=== PATIENT | male | born 1985 | race Caucasian/White ===

== ENCOUNTER 2021-01-29 00:45 | Emergency (ER) | payer SELFPAY ==
[2021-01-29] MEDS ORDERED: NA CHLORIDE 0.9% 1,000 ML ONE (01:19)
[2021-01-29] MEDS ORDERED: METHYLPREDNISOLONE 125 MG INJ ONE (01:19)
[2021-01-29] MEDS ORDERED: AZITHROMYCIN 500 MG INJ IVPB ONE (01:24)
[2021-01-29] MEDS ORDERED: NA CHLORIDE 0.9% 250 ML ONE (01:24)
[2021-01-29 01:33] LABS: Absolute Lymphocytes (CBC) 0.8 K/uL (0.7-4.9); Lymphocytes % 6.4 % (15.3-44.8); RBC Red Blood Cell Count 4.89 M/uL (4.33-5.43)
[2021-01-29 01:35] LABS: Protime INR 1.05
[2021-01-29 02:22] LABS: ALT/SGPT 95 U/L (12-78); AST/SGOT 90 U/L (15-37); Albumin 2.7 g/dL (3.4-5.0); Alkaline Phosphatase 118 U/L (45-117); BUN Blood Urea Nitrogen 20 mg/dL (7-18); Bicarbonate 24 mmol/L (21-32); Bilirubin Direct 1.2 mg/dL (0-0.2); Bilirubin Total 1.6 mg/dL (0.2-1.0); Ferritin 2621.5 ng/mL (26-388); Glucose Level 90 mg/dL (74-106); Lipase 189 U/L (73-393); Potassium 3.7 mmol/L (3.5-5.1); Protein, Total 6.7 g/dL (6.4-8.2); Sodium Level 140 mmol/L (136-145); Troponin (Emerg Dept Use Only) < 0.02 ng/mL (0.0-0.045)
--- NOTE | 2021-01-29 02:33 | EDPHYS ---
Physician Documentation [facility] Name: Erich Colbert Age: 35 yrs Sex: Male : 1985 Arrival Date: 01/29/2021 Time: 00:46 Bed 16 Private MD: ED Physician Sarah Beth HPI: 01/29 01:37 This 35 yrs old Male presents to ER via EMS with complaints of Shortness Of ma2 Breath. 01:37 Onset: The symptoms/episode began/occurred gradually, 3 day(s) ago. Associated signs ma2 and symptoms: Pertinent positives: productive cough, Pertinent negatives: diaphoresis, dizziness, hemoptysis, nausea. Severity of symptoms: At their worst the symptoms were mild moderate in the emergency department the symptoms are unchanged. The patient has not experienced similar symptoms in the past. Tested positive for Covid 3 days ago. Historical: - Allergies: 00:50 No Known Allergies; em - PMHx: 00:50 None; em - PSHx: 00:50 None; em - Immunization history:: Adult Immunizations not immunized. - Social history:: Smoking status: Patient denies any tobacco usage or history of. - Family history:: not pertinent. ROS: 01:37 Constitutional: Negative for fever, chills, and weight loss, Eyes: Negative for injury, ma2 pain, redness, and discharge, ENT: Negative for injury, pain, and discharge, Neck: Negative for injury, pain, and swelling, Cardiovascular: Negative for chest pain, palpitations, and edema, Respiratory: Negative for shortness of breath, cough, wheezing, and pleuritic chest pain, Abdomen/GI: Negative for abdominal pain, nausea, diarrhea, and constipation, : Negative for injury, bleeding, discharge, and swelling, MS/Extremity: Negative for injury and deformity, Skin: Negative for injury, rash, and discoloration, Neuro: Negative for headache, weakness, numbness, tingling, and seizure. Exam: 01:37 Constitutional: This is a well developed, well nourished patient who is awake, alert, ma2 and in no acute distress. Head/Face: Normocephalic, atraumatic. Eyes: Pupils equal round and reactive to light, extra-ocular motions intact. Lids and lashes normal. Conjunctiva and sclera are non-icteric and not injected. Cornea within normal limits. Periorbital areas with no swelling, redness, or edema. ENT: Nares patent. No nasal discharge, no septal abnormalities noted. Tympanic membranes are normal and external auditory canals are clear. Oropharynx with no redness, swelling, or masses, exudates, or evidence of obstruction, uvula midline. Mucous membranes moist. Neck: Trachea midline, no thyromegaly or masses palpated, and no cervical lymphadenopathy. Supple, full range of motion without nuchal rigidity, or vertebral point tenderness. No Meningismus. Chest/axilla: Normal chest wall appearance and motion. Nontender with no deformity. No lesions are appreciated. Cardiovascular: Regular rate and rhythm with a normal S1 and S2. No gallops, murmurs, or rubs. Normal PMI, no JVD. No pulse deficits. Respiratory: Patient is on high flow nasal cannula 15 L, saturation is 93%, lungs have equal breath sounds bilaterally, there is bilateral bronchial breathing on auscultation, no rales, or wheezes noted. no retractions or nasal flaring. Abdomen/GI: Soft, non-tender, with normal bowel sounds. No distension or tympany. No guarding or rebound. No evidence of tenderness throughout. Skin: Warm, dry with normal turgor. Normal color with no rashes, no lesions, and no evidence of cellulitis. MS/ Extremity: Pulses equal, no cyanosis. Neurovascular intact. Full, normal range of motion. Neuro: Awake and alert, GCS 15, oriented to person, place, time, and situation. Cranial nerves II-XII grossly intact. Motor strength 5/5 in all extremities. Sensory grossly intact. Cerebellar exam normal. Normal gait. Vital Signs: 00:47 BP 109 / 72; Pulse 94; Resp 40; Temp 97.2; Pulse Ox 95% on Non-rebreather mask; Weight em 83.91 kg; Height 5 ft. 7 in. (170.18 cm); Pain 6/10; 01:24 BP 115 / 67; Pulse 95; Resp 37; Pulse Ox 91% on 15 lpm NC; ad5 02:00 BP 97 / 71; Pulse 96; Resp 34; Pulse Ox 94% 15 lpm ; ad5 02:30 BP 104 / 70; Pulse 92; Resp 30; Pulse Ox 93% 15 lpm ; ad5 03:30 BP 112 / 72; Pulse 89; Resp 30 S; Pulse Ox 93% ; ad5 00:47 Body Mass Index 28.97 (83.91 kg, 170.18 cm) em 01:24 high flow O2 ad5 MDM: 00:49 Patient medically screened. dc2 01:37 Differential diagnosis: Covid pneumonia, versus bacterial pneumonia, presents reactive ma2 airway disease, PE unlikely, CHF unlikely. Antibiotic administration: Data reviewed: vital signs, nurses notes. 02:31 Counseling: I had a detailed discussion with the patient and/or guardian regarding: the [facility] historical points, exam findings, and any diagnostic results supporting the discharge/admit diagnosis, the presence of at least one elevated blood pressure reading (>120/80) during this emergency department visit, the need to transfer to another facility, we donthave covid beds in our er. will initiate transfer for higher level of care . 03:43 ED course: accepted by dr. Solis. [facility] 01/29 00:49 Order name: BMP [facility] 01/29 00:49 Order name: Blood Culture Adult (2) [facility] 01/29 00:49 Order name: C-Reactive Protein [facility] 01/29 00:49 Order name: CBC with Diff 01/29 00:49 Order name: Ferritin [facility] 01/29 00:49 Order name: Flu [facility] 01/29 00:49 Order name: LFT's dc01/29 00:49 Order name: Lactate; Complete Time: 02:27 [facility] 01/29 00:49 Order name: Lipase; Complete Time: 02:27 [facility] 01/29 00:49 Order name: PT-INR; Complete Time: 02:27 [facility] 01/29 00:49 Order name: Procalcitonin; Complete Time: 02:27 [facility] 01/29 00:50 Order name: Ptt, Activated; Complete Time: 02:27 [facility] 01/29 00:50 Order name: Troponin (emerg Dept Use Only); Complete Time: 02:27 dc01/29 00:50 Order name: CXR XRAY 01/29 00:50 Order name: EKG; Complete Time: 00:50 dc01/29 00:50 Order name: Basic Metabolic Panel; Complete Time: 02:27 [facility] 01/29 00:50 Order name: Blood Culture 01/29 00:50 Order name: C-Reactive Protein; Complete Time: 02:27 [facility] 01/29 00:50 Order name: CBC with Automated Diff; Complete Time: 02:58 [facility] 01/29 00:50 Order name: Ferritin; Complete Time: 02:27 [facility] 01/29 00:50 Order name: Liver (Hepatic) Function; Complete Time: 02:27 [facility] 01/29 01:37 Order name: Manual Differential; Complete Time: 02:59 [facility] 01/29 03:00 Order name: ABG; Complete Time: 03:37 dc01/29 00:50 Order name: Cardiac monitoring; Complete Time: 01:06 dc01/29 00:50 Order name: Droplet/Contact Precautions; Complete Time: 01:06 dc01/29 00:50 Order name: EKG - Nurse/Tech; Complete Time: 01:26 dc01/29 00:50 Order name: IV Start; Complete Time: 01:06 dc01/29 00:50 Order name: Labs collected and sent; Complete Time: 01: dc01/29 00:50 Order name: O2 Per Protocol; Complete Time: 01:07 dc01/29 00:50 Order name: O2 Sat Monitoring; Complete Time: 01:07 dc Administered Medications: 01:00 Drug: NS 0.9% 1000 ml Route: IV; Rate: 1 bolus; Site: right antecubital; em 05:18 Follow up: IV Status: Completed infusion; IV Intake: 500ml ad5 01:00 Drug: SOLU-Medrol (methylPrednisoLONE) 125 mg Route: IVP; Site: right antecubital; em 02:10 Follow up: Response: No adverse reaction ad5 01:24 Drug: AZITHromycin 500 mg Route: IVPB; Infused Over: 1 hrs; Site: right antecubital; ad5 03:28 Follow up: Response: No adverse reaction; IV Status: Completed infusion ad5 02:10 Drug: Lovenox (enoxaparin) 80 mg Route: Sub-Q; Site: right lower abdomen; ad5 03:28 Follow up: Response: No adverse reaction ad5 Disposition Summary: 01/29/21 02:32 Transfer Ordered Transfer Location: Other Acute Care Facility ma2 Reason: Higher level of care ma2 Condition: Stable ma2 Problem: new ma2 Symptoms: are unchanged ma2 Accepting Physician: martinez(01/29/21 05:17) ad5 Diagnosis - Viral pneumonia, unspecified - COVID 19 ma2 Forms: - Medication Reconciliation Form ma2 - SBAR form ma2 Signatures: Dispatcher [employer] Jose Martinez RN Sarah Darden MD MD ma2 Erasmo Patel ad5 Corrections: (The following items were deleted from the chart) 05:17 02:32 [facility] ma2 ad5
--- NOTE | 2021-01-29 02:33 | ER ---
Nurse's Notes [facility] Name: Erich Colbert Age: 35 yrs Sex: Male : 1985 Arrival Date: 01/29/2021 Time: 00:46 Bed 16 Private MD: Diagnosis: Viral pneumonia, unspecified-COVID 19 Presentation: 01/29 00:47 Chief complaint: EMS states: called out for shortness of breath, tested covid positive em 3 days ago but has had symptoms for 12 days, has been getting worse, on scene he was 68% RA, placed on NRB and went up to 97%, was not given any medications, was not able to speak in full sentences prior to being placed on the NRB. Coronavirus screen: shortness of breath, Client presents with at least one sign or symptom that may indicate coronavirus-19. Standard/surgical mask placed on the client. Provider contacted for isolation considerations. Ebola Screen: Patient negative for fever greater than or equal to 101.5 degrees Fahrenheit, and additional compatible Ebola Virus Disease symptoms Patient denies exposure to infectious person. Patient denies travel to an Ebola-affected area in the 21 days before illness onset. No symptoms or risks identified at this time. Initial Sepsis Screen: Does the patient meet any 2 criteria? RR > 20 per min. HR > 90 bpm. Yes Does the patient have a suspected source of infection? Yes: Productive cough/pneumonia If YES to both, name of provider notified: Sarah Beth MD. Risk Assessment: Do you want to hurt yourself or someone else? Patient reports no desire to harm self or others. Onset of symptoms was January 29, 2021. 00:47 Method Of Arrival: EMS: [facility] em 00:47 Acuity: KASSANDRA 3 em Historical: - Allergies: 00:50 No Known Allergies; em - PMHx: 00:50 None; em - PSHx: 00:50 None; em - Immunization history:: Adult Immunizations not immunized. - Social history:: Smoking status: Patient denies any tobacco usage or history of. - Family history:: not pertinent. Screenin:51 Abuse screen: Denies threats or abuse. Nutritional screening: No deficits noted. em Tuberculosis screening: No symptoms or risk factors identified. Fall Risk None identified. Assessment: 00:51 General: Appears in no apparent distress. uncomfortable, well groomed, well developed, em well nourished, Behavior is calm, cooperative, appropriate for age. Pain: Complains of pain in chest Pain currently is 6 out of 10 on a pain scale. Neuro: Level of Consciousness is awake, alert, obeys commands, Oriented to person, place, time, situation. Cardiovascular: Capillary refill < 3 seconds Patient's skin is warm and dry. Rhythm is sinus rhythm. Respiratory: Airway is patent Respiratory effort is labored, Respiratory pattern is tachypnea Onset: The symptoms/episode began/occurred 12 days ago. Derm: Skin is intact, Skin is clammy, Skin is pink, Skin temperature is warm. Musculoskeletal: Capillary refill < 3 seconds, Range of motion: intact in all extremities. 01:26 Reassessment: RT at bedside, pt from NRB to high flow NC, tolerating well. ad5 02:30 Reassessment: Patient and/or family updated on plan of care and expected duration. Pain ad5 level reassessed. Patient states feeling better. 03:30 Reassessment: Patient and/or family updated on plan of care and expected duration. Pain ad5 level reassessed. Pt reports no change in s/s at this time. VS remain stable. Pt remains on high flow NC, adjusted by RT to 25L at this time. Will continue to monitor. 05:15 Reassessment: Pt report to LINDSAY Richmond at [facility]. Questions/concerns ad5 addressed. EMS notified of need for pt transport. 05:17 Reassessment: EMS at bedside for pt transport, transfer center and receiving facility ad5 notified of pt ETA. Vital Signs: 00:47 BP 109 / 72; Pulse 94; Resp 40; Temp 97.2; Pulse Ox 95% on Non-rebreather mask; Weight em 83.91 kg; Height 5 ft. 7 in. (170.18 cm); Pain 6/10; 01:24 BP 115 / 67; Pulse 95; Resp 37; Pulse Ox 91% on 15 lpm NC; ad5 02:00 BP 97 / 71; Pulse 96; Resp 34; Pulse Ox 94% 15 lpm ; ad5 02:30 BP 104 / 70; Pulse 92; Resp 30; Pulse Ox 93% 15 lpm ; ad5 03:30 BP 112 / 72; Pulse 89; Resp 30 S; Pulse Ox 93% ; ad5 00:47 Body Mass Index 28.97 (83.91 kg, 170.18 cm) em 01:24 high flow O2 ad5 ED Course: 00:46 Patient arrived in ED. em 00:49 Sarah Beth MD is Attending Physician. ma2 00:50 Triage completed. em 00:50 Arm band placed on. em 00:51 Patient has correct armband on for positive identification. Bed in low position. Call em light in reach. Side rails up X2. Adult w/ patient. surveillance system monitor on. Pulse ox on. NIBP on. 00:56 Erasmo Patel is Primary Nurse. ad5 01:07 Inserted saline lock: 20 gauge in right antecubital area, using aseptic technique. ds4 Blood collected. 01:17 CXR XRAY In Process Unspecified. EDMS 02:32 initiated a transfer with Ev from [facility]. mw2 02:35 [facility], [facility], [facility] are all at capacity. [facility] Ev from [facility] is checking capacity at [facility]. 02:[address] Beth with Dr. Starkey from [facility]. mw2 03:[address] Beth with the Dr. Starkey from [facility]. mw2 03:58 administrative approval given by Ev Dale/ patient has been accepted to [address] bed I202/Dr. Starkey accepted the patient in transfer/ report to be called to [phone]. 05:14 No provider procedures requiring assistance completed. Patient transferred, IV remains ad5 in place. Administered Medications: 01:00 Drug: NS 0.9% 1000 ml Route: IV; Rate: 1 bolus; Site: right antecubital; em 05:18 Follow up: IV Status: Completed infusion; IV Intake: 500ml ad5 01:00 Drug: SOLU-Medrol (methylPrednisoLONE) 125 mg Route: IVP; Site: right antecubital; em 02:10 Follow up: Response: No adverse reaction ad5 01:24 Drug: AZITHromycin 500 mg Route: IVPB; Infused Over: 1 hrs; Site: right antecubital; ad5 03:28 Follow up: Response: No adverse reaction; IV Status: Completed infusion ad5 02:10 Drug: Lovenox (enoxaparin) 80 mg Route: Sub-Q; Site: right lower abdomen; ad5 03:28 Follow up: Response: No adverse reaction ad5 Intake: 05:18 IV: 500ml; Total: 500ml. ad5 Outcome: 02:32 ER care complete, transfer ordered by MD. sahu 05:15 Transferred by ground EMS to [facility], [facility], Transfer form completed. ad5 05:15 Transferred 05:15 Condition: stable 05:15 Condition: stable 05:15 Instructed on the need for transfer, Demonstrated understanding of instructions. 05:17 Patient left the ED. ad5 Signatures: Dispatcher [employer] Jose Martinez RN RN Elijah Zamudio ds4 Sarah Beth MD MD in2 Ilan Palomares mw2 Erasmo Patel ad5 Corrections: (The following items were deleted from the chart) 04:03 02:[address] Beth with Dr. Issa from [place] [id number] 04:03 03:[address] Beth with the Hospitalist from [place] [id number]
[2021-01-29] MEDS ORDERED: ENOXAPARIN 80 MG/0.8 ML SQ ONE (02:38)
[2021-01-29 02:42] LABS: Blood Morphology Comment NOT SEEN (NOT SEEN); Platelet Estimate ADEQ
[2021-01-29 03:18] LABS: Arterial Blood Carboxyhemoglob 1.2 % (0-1.5); Blood Gas Oxyhemoglobin 85.8 % (94-97); Blood O2 Saturation 87.6 % (92-98.5)
[2021-01-29] MEDS ORDERED: ONDANSETRON 4 MG/2 ML VIAL ONE (04:44)
[2021-01-29] MEDS ORDERED: MORPHINE 4 MG/ML SYR ONE (04:44)
--- NOTE | 2021-01-29 08:30 | RAD REPORT ---
EXAM DESCRIPTION: RAD - Chest Single View - 01/29/2021 1:17 am CLINICAL HISTORY: CONGESTION Chest pain. COMPARISON: No comparisons FINDINGS: Portable technique limits examination quality. Extensive bilateral alveolar pulmonary opacities are present probably representing pulmonary infectio n or less likely pulmonary edema. The heart is normal in size. No displaced fractures.
[2021-01-30 06:38] VITALS: TEMP 97.2
[2021-01-30 06:44] VITALS: O2SAT 93
[2021-01-30 06:45] VITALS: BP 112/72
--- NOTE | 2021-01-30 07:32 | EKG ---
Test Date: 2021-01-29 Test Time: 01:12:49 Water Resource Consultant: MARICARMEN MEASUREMENT RESULTS: Intervals: Rate: 92 TN: 150 QRSD: 90 QT: 370 QTc: 457 Morgan: P: 44 TN: 150 QRS: 47 T: 2 INTERPRETIVE STATEMENTS: Normal sinus rhythm Nonspecific T wave abnormality Abnormal ECG No previous ECG available for comparison Electronically Signed On 01-30-21 07:28:44 CDT by Danielito Agarwal
== END 2021-01-29 05:17 ==
LOC: ER 00:45
DX: U07.1 COVID-19 (principal); J12.82 Pneumonia due to coronavirus disease 2019
CPT/HCPCS: 36415; 71045; 80048; 80076; 82728; 82805; 83605; 83690; 84145; 84484; 85025; 85610; 85730; 86140; 87040; 93005; 94002; 96361; 96365; 96366; 96372; 96375; 99285; J0456; J2405; J2930; J7030; J7050

== ENCOUNTER 2022-06-08 17:10 | Emergency (ER) | payer OTHER ==
--- OUTSIDE RECORDS SUMMARY | 2022-06-08 17:18 | XMS REPORT | Continuity of Care Document ---
:1985 Author Organization [facility] t Address [address] [place] [address] Care Team Providers Name Role Phone PCP, PATIENT DOES NOT HAVE A Primary Care Physician Unavaila EDI Walker Attending Clinician Unavailable Akash MONTOYA, Kathe Attending Clinician Unavailable MOLINA MILLS Attending Clinician Unavailable Molina Davison Attending Clinician Doctor Unassigned, [place] Attending Clinician Unavailable LIZY COWART Attending Clinician Unavailable Supa JOSE, Lizy Attending Clinician Edi Starkey MD Attending Clinician Han Reed MD Attending Clinician Shahbaz Bauer MD Attending Clinician EDI STARKEY Admitting Clinician Unavailable Payers Payer Name Policy Type Policy Number Effective Date Expiration Date S ource Problems Condition Condition Condition Status Onset Resolution Last Treating Co mments Source Name Details Category Date Date Treatment Clinician Date Acute Acute Disease Active [facility] Pat[facility] y failure y failure 00:00: Medi adama due to due to 00 Center COVID-19 COVID-19 Acute Acute Disease Active [facility] respir[facility]-28 Pati kes y failure y failure 00:00: Medi adama due to due to 00 Center COVID-19 COVID-19 No known No known Disease Unive rs active active ity of problems problems [facility] Allergies, Adverse Reactions, Alerts Allergy Allergy Status Severity Reaction(s) Onset Inactive Treating Comm ents Source Name Type Date Date Clinician NO KNOWN Drug Active Univers ALLERGIE Class ity of S [facility] NO KNOWN Allergy Active [facility] Family History Family Member Diagnosis Comments Start Date Stop Date Source Natural mother Diabetes [facility] Social History Social Habit Start Date Stop Date Quantity Comments Source History SDOH [facility] Drinks History SDOH [facility] Alcohol Binge Medical Jona [facility] History SDOH [facility] Alcohol Comment Medical C enter Exposure to 2022-02-23 2022-03-05 [facility]00 [facility] (event) [place] Tobacco use and 2021-01-29 2021-01-[address] [facility] exposure 00:00:00 00:00:00 [facility] Alcohol intake 2021-01-29 2021-01-29 Ex-drinker [facility] 00:00:00 00:00:00 (finding) Medical Center History SDOH 2021-01-29 2021-01-[address] [facility] Alcohol Frequency 00:00:00 00:00:00 [facility] Sex Assigned At [address] 00:00:00 00:00:00 [facility] Smoking Status Start Date Stop Date Source Never smoked tobacco [facility] Medications Ordered Filled Start Stop Current Ordering Indication Dosage Frequency Signature Comments Components Source Medication Medication Date Date Medication? Clinician (SIG) Name Name aki 2021- No [id number] 40mg [facility] 07-12 [id number] ity of acetonide 18:15: 17:13 [place] (KENALOG) 00 :00 Medical injection Branch 40 mg triamcinolo 2021- No [id number] 40mg 40 mg, [facility] 07-12 [id number] Intramuscu ity of acetonide 18:15: 17:13 [place] ([place] 00 :00 1 dose, On Medi adama injection 07/12/21 Bran ch 40 mg at 1215, Routine lamoTRIgine Yes 200mg Take 200 U nivers 200 mg 1-08 mg by ity of tablet 11:03: mouth. [address] Branch lamoTRIgine 2-0 Yes 200mg Take 200 U nivers 200 mg 1-08 mg by ity of tablet 11:03: mouth. [address] lamoTRIgine 2021-0 Yes 200mg Take 200 U nivers 200 mg 1-08 mg by ity of tablet 11:03: mouth. [address] lamoTRIgine 2021-0 Yes 200mg Take 200 U nivers 200 mg 1-08 mg by ity of tablet 11:03: mouth. [address] predniSONE 2021-0 2022- No [id number] Take 4 Univers 10 mg 07-12 [id number] tablets by ity o f tablet 00:00: 05:59 mouth [place] 00 :00 daily for Medical 5 days, Branch THEN 2 tablets daily for 5 days, THEN 1 tablet daily for 5 days. lamoTRIgine 2020-0 Yes 200mg QD Take [address] (LaMICtal) 8-21 mg by [facility] 200 MG 01:41: mouth Medical tablet 43 daily. [place] lamoTRIgine 2020-0 Yes 200mg QD Take [address] (LaMICtal) 8-21 mg by [facility] 200 MG 01:41: mouth Medical tablet 43 daily. [place] lamoTRIgine 2020-0 Yes 200mg QD Take [address] (LaMICtal) 8-21 mg by [facility] 200 MG 01:41: mouth Medical tablet 43 daily. [place] zinc 2020-0 2021- No 220mg QD Take [address] sulfate 02-22- capsule [facility]ukes (ZINCATE) 00:00: 23:59 (220 mg Medi adama 50 mg zinc 00 :00 total) by Cent er (220 mg) mouth capsule daily. zinc 2020-0 2021- No 220mg QD Take [address] sulfate 8-22 02-21 capsule [facility]ukes (ZINCATE) 00:00: 23:59 (220 mg Medi adama 50 mg zinc 00 :00 total) by Cent er (220 mg) mouth capsule daily. zinc 2020-0 2- No 220mg QD Take [address] sulfate 8- 08-21 capsule [facility]ukes (ZINCATE) 00:00: 23:59 (220 mg Medi adama 50 mg zinc 00 :00 total) by Cent er (220 mg) mouth capsule daily. amiodarone 2020- No 200mg QD Take [address] (PACERONE) -25 03-20 tablet [facility]ukes 200 MG 00:00: 23:59 (200 mg Medical tablet 00 :00 total) by Center mouth daily for 30 days. pantoprazol 2020- No 40mg QD Take [address] e -25 03-20 tablet (40 [facility] (PROTONIX) 00:00: 23:59 mg total) M edical 40 MG 00 :00 by mouth Center tablet daily for 30 days. amiodarone 2020- No 200mg QD Take [address] (PACERONE) 02-22- tablet [facility]ukes 200 MG 00:00: 23:59 (200 mg Medical tablet 00 :00 total) by Center mouth daily for 30 days. pantoprazol 2020- No 40mg QD Take [address] [facility] e 02-22- tablet (40 [facility]ukes (PROTONIX) 00:00: 23:59 mg total) M edical 40 MG 00 :00 by mouth Center tablet daily for 30 days. dextroamphe 2020- No 20mg QD Take [address] tamine-amph 8- 08-20 by mouth Elver es etamine 12:59: 00:00 every Medical (ADDERALL 07 :00 morning. Center XR) 20 MG 24 hr capsule dextroamphe 2020- No 20mg QD Take [address] [address] tamine-amph 8-20 08-20 by mouth Elver es etamine 12:59: 00:00 every Medical (ADDERALL 07 :00 morning. Center XR) 20 MG 24 hr capsule apixaban 2020- No 5mg Q.5D [address] (ELIQUIS) 5 8-20 -19 (5 mg Lukes mg Tab 00:00: 23:59 total) by Medic al tablet 00 :00 Feed Tube Center route 2 (two) times daily for 30 days. apixaban 2020- No 5mg Q.5D [address] (ELIQUIS) 5 8-20 -19 (5 mg [facility]ukes mg Tab 00:00: 23:59 total) by Medic al tablet 00 :00 [employer] Center route 2 (two) times daily for 30 days. predniSONE No 40mg Take [address] (DELTASONE) 02-21 tablets Luke s 20 MG 00:00: 23:59 (40 mg Medical tablet 00 :00 total) by Center mouth as directed for 12 days Prednisone 40 mg po daily x 3 daysPredni sone 20 mg po daily x 3 daysPredni sone 10 mg po daily x 3 daysPredni sone 5 mg po daily x 3 days. predniSONE No 40mg Take [address] (DELTASONE) 02-21 tablets Luke s 20 MG 00:00: 23:59 (40 mg Medical tablet 00 :00 total) by Center mouth as directed for 12 days Prednisone 40 mg po daily x 3 daysPredni sone 20 mg po daily x 3 daysPredni sone 10 mg po daily x 3 daysPredni sone 5 mg po daily x 3 days. Vital Signs Vital Name Observation Time Observation Value Comments Source HEIGHT 2021-02-19 12:00:00 167.6 cm WEIGHT 2021-02-06 06:00:00 71.8 kg WEIGHT 2021-02-05 05:00:00 76.7 kg WEIGHT 2021-02-04 06:00:00 78.9 kg WEIGHT 2021-01-31 05:00:00 76.8 kg HEIGHT 2021-01-29 08:30:00 180.3 cm WEIGHT 2021-01-29 08:30:00 74 kg Systolic blood 2022-03-05 21:56:00 134 mm[Hg] Univer sity [facility] Diastolic blood 2022-03-05 21:56:00 82 mm[Hg] Unive [facility] Heart rate 2022-03-05 21:56:00 76 /min [facility] Body temperature 2022-03-05 21:56:00 37.28 Yanni [facility] Respiratory rate 2022-03-05 21:56:00 17 /min [facility] Body height 2022-03-05 21:56:00 168.9 cm [facility] Body weight 2022-03-05 21:56:00 86.093 kg [facility] BMI 2022-03-05 21:56:00 30.18 kg/m2 Universi ty of [facility] Oxygen saturation in 2022-03-05 21:56:00 97 /min University of Arterial blood by [facility] Pulse oximetry Branch Systolic blood 2021-07-12 17:04:00 136 mm[Hg] Univer sity of [facility] Diastolic blood 2021-07-12 17:04:00 95 mm[Hg] Unive rsity of [facility] Heart rate 2021-07-12 17:03:00 67 /min Universi ty of [facility] Body temperature 2021-07-12 17:03:00 36.83 Yanni Univ ersity of [facility] Respiratory rate 2021-07-12 17:03:00 18 /min Univ ersity of [facility] Body height 2021-07-12 17:03:00 168.9 cm Universi ty of [facility] Body weight 2021-07-12 17:03:00 83.779 kg Universi ty of [facility] BMI 2021-07-12 17:03:00 29.36 kg/m2 Universi ty of [facility] Oxygen saturation in 2021-07-12 17:03:00 96 /min University of Arterial blood by [facility] Pulse oximetry Branch HEIGHT 2021-02-19 12:00:00 167.6 cm WEIGHT 2021-02-06 06:00:00 71.8 kg WEIGHT 2021-02-05 05:00:00 76.7 kg WEIGHT 2021-02-04 06:00:00 78.9 kg WEIGHT 2021-01-31 05:00:00 76.8 kg HEIGHT 2021-01-29 08:30:00 180.3 cm WEIGHT 2021-01-29 08:30:00 74 kg Systolic blood 2021-02-21 12:23:00 139 mm[Hg] [facility] Diastolic blood 2021-02-21 12:23:00 73 mm[Hg] [facility] Heart rate 2021-02-21 12:23:00 98 /min [facility] Respiratory rate 2021-02-21 12:23:00 18 /min [facility] Oxygen saturation in 2021-02-21 12:23:00 99 /min [facility] Arterial blood by Medical Ce nter Pulse oximetry Body temperature 2021-02-21 08:05:00 36 Yanni [facility] Body height 2021-02-19 12:00:00 167.6 cm [facility] Body weight 2021-02-06 06:00:00 71.8 kg [facility] BMI 2021-02-06 06:00:00 25.55 kg/m2 [facility] Procedures Procedure Date / Time Performing Clinician Source Performed ASSIGNMENT OF BENEFITS 2022-03-05 21:32:13 Doctor Unassigned, No [facility] POCT-GLUCOSE METER 2021-02-21 11:29:00 [facility] CHEST 1 VIEW PORTABLE 2021-02-21 06:30:00 [facility] / BEDSIDE Center D-DIMER 2021-02-21 04:41:00 Mercedes [facility] FERRITIN 2021-02-21 04:41:00 [facility] 2021-02-21 04:41:00 [facility] CBC W/PLT COUNT & AUTO 2021-02-21 04:41:00 Mercedes [facility] DIFFERENTIAL Center MAGNESIUM 2021-02-21 04:41:00 Mercedes [facility] PHOSPHORUS 2021-02-21 04:41:00 Mercedes [facility] CBC W/PLT COUNT & AUTO 2021-02-21 04:41[facility] POCT-GLUCOSE METER 2021-02-21 00:53:00 [facility] POCT-GLUCOSE METER 2021-02-20 16:30:00 [facility] POCT-GLUCOSE METER 2021-02-20 06:18:00 [facility] XR CHEST 1 VIEW PORTABLE 2021-02-20 06:05[facility] BASIC METABOLIC PANEL 2021-02-20 05:14:00 Mercedes [facility] (7) Center CBC W/PLT COUNT & AUTO 2021-02-20 [facility]:14[facility] [place] MAGNESIUM 2021-02-20 05:14:00 Mercedes [facility] PHOSPHORUS 2021-02-20 05:14:00 Mercedes, [facility] CBC W/PLT COUNT & AUTO 2021-02-20 05:14:[facility]SE METER 2021-02-19 20:33:00 [facility]SE [facility] 2021-02-19 06:21:00 Han Reed [facility] XR CHEST 1 VIEW PORTABLE 2021-02-19 05:15:00 [facility] D-DIMER 2021-02-19 04:51:00 [facility] 2021-02-19 04:51[facility]00 [facility] 2021-02-19 04:51:00 [facility] CBC W/PLT COUNT & AUTO 2021-02-19 04:51:00 Mercedes [facility] MAGNESIUM 2021-02-19 04:51:00 [facility] 2021-02-19 04:51:00 Mercedes, [facility] CBC W/PLT COUNT & AUTO 2021-02-19 04:51:[facility] PO[facility]-GLUCOSE METER 2021-02-18 22:14:00 Han Reed [facility] POCT-GLUCOSE METER 2021-02-18 18:15:00 Han Reed [facility] POCT-GLUCOSE METER 2021-02-18 11:55:00 Han Reed [facility] XR CHEST 1 VIEW PORTABLE 2021-02-18 07:37:00 [facility] POCT-GLUCOSE METER 2021-02-18 06:13:00 Brianna Han C [facility] BASIC METABOLIC PANEL 2021-02-18 04:49:00 [facility] [place] CBC W/PLT COUNT & AUTO 2021-02-18 04:49:00 Mercedes [facility] DIFFERENTIAL Center MAGNESIUM 2021-02-18 04:49:00 [facility] 2021-02-18 04:49:00 [facility] CBC W/PLT COUNT & AUTO 2021-02-18 04:49:[facility] PO[facility]UCOSE METER 2021-02-18 00:51:00 Brianna Han C [facility] POCT-GLUCOSE METER 2021-02-17 20:12:00 [facility] POCT-GLUCOSE METER 2021-02-17 16:54:00 [facility] POCT-GLUCOSE METER 2021-02-17 11:09:00 [facility] Ml [facility] XR CHEST 1 VIEW PORTABLE 2021-02-17 06:14:00 Mercedes, [facility] / BEDSIDE Center CBC W/PLT COUNT & AUTO 2021-02-17 05:12:00 Mercedes, [facility] DIFFERENTIAL [place] CBC W/PLT COUNT & AUTO 2021-02-17 05:12:[facility] [place] D-DIMER 2021-02-17 04:48:00 Mercedes [facility] FERRITIN 2021-02-17 04:47:00 [facility]IC METABOLIC PANEL 2021-02-17 04:47:00 [facility] MAGNESIUM 2021-02-17 04:47:00 Mercedes, [facility] PHOSPHORUS 2021-02-17 04:47:00 Mercedes, [facility] POCT-GLUCOSE METER 2021-02-16 23:49:00 Brianna Han C [facility] POCT-GLUCOSE METER 2021-02-16 23:39:00 [facility] POCT-GLUCOSE METER 2021-02-16 17:15:00 [facility] POCT-GLUCOSE METER 2021-02-16 12:42:00 Brianna [facility] Ml [facility] CBC W/PLT COUNT & AUTO 2021-02-16 04:46:00 Mercedes [facility] CBC W/PLT COUNT & AUTO 2021-02-16 04:46:00 Mercedes [facility] XR CHEST 1 VIEW PORTABLE 2021-02-16 04:45:00 [facility] [place] BASIC METABOLIC PANEL 2021-02-16 03:35:00 Mago [facility] (7) Center MAGNESIUM 2021-02-16 03:35:00 Mercedes, [facility] PHOSPHORUS 2021-02-16 03:35:00 Mercedes, [facility] POCT-GLUCOSE METER 2021-02-15 23:33:00 Han Reed [facility] POCT-GLUCOSE METER 2021-02-15 18:09:00 [facility] XR ABDOMEN / KUB 1 VIEW 2021-02-15 17:28:00 Brianna Han [facility] POCT-GLUCOSE METER 2021-02-15 12:15:00 [facility] Ml [facility] XR CHEST 1 VIEW PORTABLE 2021-02-15 06:00:00 Mercedes [facility] / BEDSIDE Center D-DIMER 2021-02-15 04:08:00 Mercedes, [facility] FERRITIN 2021-02-15 04:08:00 Mercedes [facility] BASIC METABOLIC PANEL 2021-02-15 04:08:00 Mercedes [facility] (7) [place] CBC W/PLT COUNT & AUTO 2021-02-15 04:08[facility]00 [facility] MAGNESIUM 2021-02-15 04:08:00 Mercedes, [facility] PHOSPHORUS 2021-02-15 04:08:00 [facility] CBC W/PLT COUNT & AUTO 2021-02-15 04:08:00 [facility] POCT-GLUCOSE METER 2021-02-14 23:46:00 Brianna Han [facility] POCT-GLUCOSE METER 2021-02-14 14:42:00 [facility] Han [facility] POCT-GLUCOSE METER 2021-02-14 12:30:00 [facility] Han C [facility] BLOOD GAS, ARTERIAL 2021-02-14 12:23:00 Beny Kent I [facility] XR CHEST 1 VIEW PORTABLE 2021-02-14 05:56:00 [facility] / BEDSIDE Center BASIC METABOLIC PANEL 2021-02-14 05:14:00 [facility] CBC W/PLT COUNT & AUTO 2021-02-14 05:14:00 [facility] 2021-02-14 05:14:00 [facility] 2021-02-14 05:14:00 [facility] CBC W/PLT COUNT & AUTO 2021-02-14 05:14:00 [facility] ARTERIAL 2021-02-14 03:06:00 [facility]SE METER 2021-02-13 23:09:00 Lucijohanna Han C [facility] POCT-GLUCOSE METER 2021-02-13 17:38:00 Brianna Han C [facility] POCT-GLUCOSE METER 2021-02-13 12:12:00 LucijohannaHan [facility] D-DIMER 2021-02-13 05:42:00 Mercedes [facility] FERRITIN 2021-02-13 05:42:00 [facility] BASIC METABOLIC PANEL 2021-02-13 05:42:00 [facility] [place] CBC W/PLT COUNT & AUTO 2021-02-13 05:42:00 [facility] MAGNESIUM 2021-02-13 05:42:00 [facility] 2021-02-13 05:42:00 [facility] CBC W/PLT COUNT & AUTO 2021-02-13 05:42:00 [facility] [place] XR CHEST 1 VIEW PORTABLE 2021-02-13 05:29:00 [facility] BLOOD GAS, ARTERIAL 2021-02-13 03:18:00 [facility] POCT-GLUCOSE METER 2021-02-12 23:19:00 Brianna Han C [facility] POCT-GLUCOSE METER 2021-02-12 16:57:00 [facility] Han C [facility] POCT-GLUCOSE METER 2021-02-12 12:38:00 [facility] BLOOD GAS, ARTERIAL 2021-02-12 12:13:00 [facility] CHEST 1 VIEW PORTABLE 2021-02-12 06:05:00 [facility] BASIC METABOLIC PANEL 2021-02-12 04:37:00 [facility] CBC W/PLT COUNT & AUTO 2021-02-12 04:37:00 Mercedes, [facility] DIFFERENTIAL Center MAGNESIUM 2021-02-12 04:37:00 Mercedes [facility] PHOSPHORUS 2021-02-12 04:37:00 Mercedes [facility] CBC W/PLT COUNT & AUTO 2021-02-12 04:37:00 Mercedes [facility] BLOOD GAS, ARTERIAL 2021-02-12 03:09:00 Mercedes, [facility] POCT-GLUCOSE METER 2021-02-12 00:10:00 Han Reed [facility] VANCOMYCIN LEVEL, TROUGH 2021-02-11 21:06:00 Lester Carrillo [facility] POCT-GLUCOSE METER 2021-02-11 17:43:00 [facility] BLOOD GAS, ARTERIAL 2021-02-11 13:16:00 Mercedes, [facility] POCT-GLUCOSE METER 2021-02-11 11:40:00 [facility] XR CHEST 1 VIEW PORTABLE 2021-02-11 06:53:00 Mercedes [facility] / BEDSIDE Center D-DIMER 2021-02-11 03:58:00 Mercedes, [facility] FERRITIN 2021-02-11 03:58:00 Mercedes, [facility] BASIC METABOLIC PANEL 2021-02-11 03:58:00 Mercedes, [facility] (7) Center CBC W/PLT COUNT & AUTO 2021-02-11 03:58:00 Mercedes, [facility] DIFFERENTIAL Center MAGNESIUM 2021-02-11 03:58:00 Mercedes, [facility] PHOSPHORUS 2021-02-11 03:58:00 Mercedes, [facility] CBC W/PLT COUNT & AUTO 2021-02-11 03:58[facility] 2021-02-11 03:18:00 Mercedes [facility] POCT-GLUCOSE METER 2021-02-11 00:31:00 Lizette, [facility] POCT-GLUCOSE METER 2021-02-10 17:13:00 Lizette, [facility] POCT-GLUCOSE METER 2021-02-10 12:11:00 Lizette, [facility] XR CHEST 1 VIEW PORTABLE 2021-02-10 05:33:00 [facility] [place] BASIC METABOLIC PANEL 2021-02-10 05:02:00 [facility] [place] CBC W/PLT COUNT & AUTO 2021-02-10 05:02:00 Mercedes [facility] MAGNESIUM 2021-02-10 05:02:00 Mago [facility] PHOSPHORUS 2021-02-10 05:02:00 [facility] VANCOMYCIN LEVEL, TROUGH 2021-02-10 05:02:00 Ta, Eduarda-Isabella Thi [facility] PROCALCITONIN 2021-02-10 05:02:00 Susan Fierro [facility] CBC W/PLT COUNT & AUTO 2021-02-10 05:02:00 Mercedes [facility] BLOOD GAS, ARTERIAL 2021-02-10 03:07:00 Mercedes, [facility] POCT-GLUCOSE METER 2021-02-10 00:06:00 Lizette, [facility] POCT-GLUCOSE METER 2021-02-09 17:29:00 Lizette, [facility] POCT-GLUCOSE METER 2021-02-09 12:27:00 [facility] PORTABLE 2021-02-09 06:22:00 Mercedes, [facility] / BEDSIDE [place] XR ABDOMEN / KUB 1 VIEW 2021-02-09 06:22:[address] [facility] D-DIMER 2021-02-09 04:39:00 Mago [facility] FERRITIN 2021-02-09 04:39:00 Mercedes, [facility] BASIC METABOLIC PANEL 2021-02-09 04:39:00 Mago [facility] (7) [place] CBC W/PLT COUNT & AUTO 2021-02-09 04:39:00 Mercedes [facility] DIFFERENTIAL Center MAGNESIUM 2021-02-09 04:39:00 [facility] 2021-02-09 04:39:00 [facility] CBC W/PLT COUNT & AUTO 2021-02-09 04:39:00 Mercedes [facility] BLOOD GAS, ARTERIAL 2021-02-09 03:20:00 Mago [facility] POCT-GLUCOSE METER 2021-02-09 00:03:00 Lizette [facility] POCT-GLUCOSE METER 2021-02-08 17:40:00 Lizette [facility] MRSA SCREEN 2021-02-08 14:20:[address] [facility] BLOOD CULTURE 2021-02-08 12:58:[address] [facility] SPUTUM CULTURE + GRAM 2021-02-08 12:30:00 [facility] PO[facility]UCOSE METER 2021-02-08 11:37:00 Lizette [facility] XR CHEST 1 VIEW PORTABLE 2021-02-08 04:52:00 Mercedes [facility] / BEDSIDE Center XR ABDOMEN / KUB 1 VIEW 2021-02-08 04:52:00 Mago [facility] BASIC METABOLIC PANEL 2021-02-08 03:51:00 [facility] CBC W/PLT COUNT & AUTO 2021-02-08 03:51:00 Mercedes, [facility] DIFFERENTIAL Center MAGNESIUM 2021-02-08 03:51:00 Mercedes [facility] PHOSPHORUS 2021-02-08 03:51:00 Mercedes, [facility] CBC W/PLT COUNT & AUTO 2021-02-08 03:51:00 [facility] ARTERIAL 2021-02-08 03:06:00 [facility] 2021-02-07 23:48:00 [facility] 2021-02-07 17:49:00 [facility] POCT-GLUCOSE METER 2021-02-07 11:59:00 [facility] XR CHEST 1 VIEW PORTABLE 2021-02-07 08:00:00 [facility] XR ABDOMEN / KUB 1 VIEW 2021-02-07 08:00:00 [facility] D-DIMER 2021-02-07 05:37:00 [facility] 2021-02-07 05:00[facility]00 [facility] BASIC METABOLIC PANEL 2021-02-07 05:00:00 Mercedes [facility] () [place] CBC W/PLT COUNT & AUTO 2021-02-07 05:00:00 [facility] 2021-02-07 05:00:00 [facility]OS[facility]US 2021-02-07 05:00:00 [facility] TRIGLYCERIDES 2021-02-07 05:00:00 [facility] CBC W/PLT COUNT & AUTO 2021-02-07 05:00:00 [facility], ARTERIAL 2021-02-07 04:31:00 Mercedes, [facility] POCT-GLUCOSE METER 2021-02-06 23:11:00 Lizette, [facility] POCT-GLUCOSE METER 2021-02-06 18:48:00 Lizette, [facility] POCT-GLUCOSE METER 2021-02-06 14:06:00 Lizette [facility] XR ABDOMEN / KUB 1 VIEW 2021-02-06 09:55:00 Mercedes [facility] XR CHEST 1 VIEW PORTABLE 2021-02-06 05:39:00 [facility]EL 2021-02-06 05:11:00 [facility] [place] CBC W/PLT COUNT & AUTO 2021-02-06 05:11:00 Mercedes, [facility] MAGNESIUM 2021-02-06 05:11:00 Mercedes [facility] PHOSPHORUS 2021-02-06 05:11:00 [facility] CBC W/PLT COUNT & AUTO 2021-02-06 05:11:00 [facility] BLOOD [facility], ARTERIAL 2021-02-06 03:29:00 Mercedes, [facility] POCT-GLUCOSE METER 2021-02-06 00:02:00 Lizette, [facility] POCT-GLUCOSE METER 2021-02-05 17:39:00 [facility] POCT-GLUCOSE METER 2021-02-05 11:47:00 Lizette, [facility] XR CHEST 1 VIEW PORTABLE 2021-02-05 06:01:00 [facility] [place] [facility]ER 2021-02-05 05:03:00 [facility] 2021-02-05 05:03:00 Mercedes, [facility] BASIC METABOLIC PANEL 2021-02-05 05:03:00 Mercedes [facility] (7) [place] CBC W/PLT COUNT & AUTO 2021-02-05 05:03:00 Mercedes [facility] MAGNESIUM 2021-02-05 05:03:00 [facility] 2021-02-05 05:03:00 Mercedes [facility] CBC W/PLT COUNT & AUTO 2021-02-05 05:03:00 [facility] BLOOD [facility], ARTERIAL 2021-02-05 03:22:00 [facility]SE METER 2021-02-05 00:31:00 Han [facility] POCT-GLUCOSE METER 2021-02-04 17:03:00 Han [facility] POCT-GLUCOSE METER 2021-02-04 11:53:00 Han [facility] XR CHEST 1 VIEW PORTABLE 2021-02-04 06:08:00 [facility]IDE Center BASIC METABOLIC PANEL 2021-02-04 05:01:00 [facility] [place] CBC W/PLT COUNT & AUTO 2021-02-04 05:01:00 Mercedes [facility] MAGNESIUM 2021-02-04 05:01:00 [facility] 2021-02-04 05:01:00 [facility] CBC W/PLT COUNT & AUTO 2021-02-04 05:01:00 [facility] BLOOD [facility]AS, ARTERIAL 2021-02-04 03:43:00 [facility] PO[facility]-GLUCOSE METER 2021-02-04 00:02:00 Han [facility] POCT-GLUCOSE METER 2021-02-03 17:08:00 Han [facility] POCT-GLUCOSE METER 2021-02-03 12:10:00 Han [facility] XR CHEST 1 VIEW PORTABLE 2021-02-03 06:53:00 [facility] D-DIMER 2021-02-03 05:20:00 Mercedes [facility] FERRITIN 2021-02-03 05:20:00 [facility] BASIC METABOLIC PANEL 2021-02-03 05:20:00 [facility] [place] CBC W/PLT COUNT & AUTO 2021-02-03 05:20:00 [facility] 2021-02-03 05:20:00 [facility] 2021-02-03 05:20:00 [facility] CBC W/PLT COUNT & AUTO 2021-02-03 05:20:00 [facility] [place] (MANUAL DIFFERENTIAL) 2021-02-03 05:20:00 [facility] BLOOD GAS, ARTERIAL 2021-02-03 04:46:00 [facility] POCT-GLUCOSE METER 2021-02-03 00:01:00 Brianna Han C [facility] POCT-GLUCOSE METER 2021-02-02 17:45:00 [facility] POCT-GLUCOSE METER 2021-02-02 11:45:00 [facility] XR CHEST 1 VIEW PORTABLE 2021-02-02 06:58:00 [facility] BASIC METABOLIC PANEL 2021-02-02 06:03:00 [facility] [place] CBC W/PLT COUNT & AUTO 2021-02-02 06:03:00 [facility] MAGNESIUM 2021-02-02 06:03:00 Mercedes, [facility] PHOSPHORUS 2021-02-02 06:03:00 Mercedes [facility] CBC W/PLT COUNT & AUTO 2021-02-02 06:03:00 [facility]LO[facility], ARTERIAL 2021-02-02 04:08:00 Mago [facility] POCT-GLUCOSE METER 2021-02-02 00:03:00 Brianna Han [facility] POCT-GLUCOSE METER 2021-02-01 17:19:00 Brianna Han C [facility] POCT-GLUCOSE METER 2021-02-01 11:32:00 Brianna Han [facility] XR CHEST 1 VIEW PORTABLE 2021-02-01 05:53:00 [facility] D-DIMER 2021-02-01 05:45:00 [facility] 2021-02-01 05:45:00 [facility] BASIC METABOLIC PANEL 2021-02-01 05:45:00 [facility] [place] CBC W/PLT COUNT & AUTO 2021-02-01 05:45:00 Mercedes [facility] MAGNESIUM 2021-02-01 05:45:00 Mercedes [facility] PHOSPHORUS 2021-02-01 05:45:00 [facility] HEPATIC FUNCTION PANEL 2021-02-01 05:45:00 [facility] W/[facility]T COUNT & AUTO 2021-02-01 05:45:00 [facility] BLOOD GAS, ARTERIAL 2021-02-01 03:58:00 [facility] POCT-[facility]UCOSE METER 2021-02-01 00:02:00 Han [facility] POCT-GLUCOSE METER 2021-01-31 17:09:00 Han [facility] POCT-GLUCOSE METER 2021-01-31 12:21:00 Han Reed [facility] XR CHEST 1 VIEW PORTABLE 2021-01-31 06:27:00 [facility] POCT-GLUCOSE METER 2021-01-31 05:38:00 Han Reed [facility] BASIC METABOLIC PANEL 2021-01-31 04:00:00 [facility] (7) Center CBC W/PLT COUNT & AUTO 2021-01-31 04:00:00 [facility] DIFFERENTIAL Center MAGNESIUM 2021-01-31 04:00:00 [facility] PHOSPHORUS 2021-01-31 04:00:00 [facility] HEPATIC FUNCTION PANEL 2021-01-31 04:00:00 [facility] CBC W/PLT COUNT & AUTO 2021-01-31 04:00:00 [facility] (MANUAL DIFFERENTIAL) 2021-01-31 04:00:00 [facility] BLOOD GAS, ARTERIAL 2021-01-31 03:36:00 [facility] POCT-GLUCOSE METER 2021-01-30 23:57:00 Han Reed [facility] CRITICAL CARE 2021-01-30 20:04:34 Yoli Beny [facility] INTUBATION 2021-01-30 20:02:52 Yoli Beny [facility] POCT-GLUCOSE METER 2021-01-30 17:04:00 Han Reed [facility] POCT-GLUCOSE METER 2021-01-30 12:48:00 LuciHan [facility] XR ABDOMEN / KUB 1 VIEW 2021-01-30 11:24:00 [facility] BLOOD GAS, ARTERIAL 2021-01-30 09:07:00 [facility] CHEST 1 VIEW PORTABLE 2021-01-30 07:50:00 [facility] [place] BLOOD GAS, ARTERIAL 2021-01-30 06:55:00 Odalys Mcdonald [facility] D-DIMER 2021-01-30 04:25:00 [facility] 2021-01-30 04:25:00 [facility] BASIC METABOLIC PANEL 2021-01-30 04:25:00 [facility] (7) Center MAGNESIUM 2021-01-30 04:25:00 [facility] PHOS[facility]ORUS 2021-01-30 04:25:00 [facility] HEPATIC FUNCTION PANEL 2021-01-30 04:25:00 [facility] W/PLT COUNT & AUTO 2021-01-30 04:24:00 [facility] DIFFERENTIAL [place] CBC W/PLT COUNT & AUTO 2021-01-30 04:24:00 [facility] DIFFERENTIAL Center (MANUAL DIFFERENTIAL) 2021-01-30 04:24:00 [facility] BLOOD GAS, ARTERIAL 2021-01-30 04:04:00 [facility] POCT-GLUCOSE METER 2021-01-29 20:49:00 Brianna Han C [facility] POCT-GLUCOSE METER 2021-01-29 17:47:00 [facility] Han C [facility] POCT-GLUCOSE METER 2021-01-29 11:45:00 [facility] XR CHEST 1 VIEW PORTABLE 2021-01-29 11:24:00 [facility] / BEDSIDE [place] SARS-COV2/RT-PCR ([facility] & 2021-01-29 08:37:00 Mago [facility] REF LABS) Center RAPID INFLUENZA A&B 2021-01-29 08:36:00 Mago [facility] SCREEN Center 2D ECHO W/ DOPPLER 2021-01-29 08:33:53 Mago [facility] (CW/PW/COLOR) Center XR CHEST 1 VIEW PORTABLE 2021-01-29 08:07:00 Edi Starkey am [facility] / BEDSIDE Center BLOOD GAS, ARTERIAL 2021-01-29 08:07:00 Edi Starkey CH I [facility] PROCALCITONIN 2021-01-29 08:04:00 Edi Starkey [facility] CBC W/PLT COUNT & AUTO 2021-01-29 08:03:00 Mercedes [facility] DIFFERENTIAL Center COMPREHENSIVE METABOLIC 2021-01-29 08:03:00 Mercedes [facility] PANEL Center C-REACTIVE PROTEIN 2021-01-29 08:03:00 Mercedes [facility] MAGNESIUM 2021-01-29 08:03:00 Mercedes [facility] PHOSPHORUS 2021-01-29 08:03:00 [facility] CBC W/PLT COUNT & AUTO 2021-01-29 08:03:00 Mercedes [facility] TROPONIN I 2021-01-29 08:02:00 Mercedes [facility] FERRITIN 2021-01-29 08:02:00 [facility] PROTHROMBIN TIME/INR 2021-01-29 08:02:00 [facility] D-DIMER 2021-01-29 08:01:00 [facility] REPORT OF PROCEDURE - 2021-01-29 00:00:00 Provider, [place] [facility] ENDOSCOPY SCAN Scanning Center Plan of Care Planned Activity Planned Date Details Comments Source Future Scheduled [address] [facility] 00:[facility]:00 (procedure) [code = [facility] [id number]] Future Scheduled 2022-03-05 INFLUENZA VACCINE (#1) [facility]00 [code = INFLUENZA Medical Ce nter VACCINE (#1)] Future Scheduled 2022-01-[address] [facility] 00:00:00 [facility] Screening (12+) [code = Tobacco Cessation Counseling and Screening (12+)] Future Scheduled 2021-07-[address] [facility] 00:00:00 (12+) [code = Medical Center DEPRESSION SCREENING (12+)] Future Scheduled 2021-03-05 INFLUENZA VACCINE (#1) [facility] 00:00:00 [code = INFLUENZA Medical Ce nter VACCINE (#1)] Future Scheduled 2021-03-05 INFLUENZA VACCINE (#1) [facility] 00:00:00 [code = INFLUENZA Medical Ce nter VACCINE (#1)] Future Scheduled 2020-07-[address] [facility] 00:00:00 (12+) [code = Medical Center DEPRESSION SCREENING (12+)] Future Scheduled 2020-07-[address] [facility] 00:00:00 (12+) [code = Medical Center DEPRESSION SCREENING (12+)] Future Scheduled 2006 DTAP/TDAP/TD VACCINES [facility] 00:00:00 (1 - Tdap) [code = Medical C enter DTAP/TDAP/TD VACCINES (1 - Tdap)] Future Scheduled 2006 DTAP/TDAP/TD VACCINES [facility] 00:00:00 (1 - Tdap) [code = Medical C enter DTAP/TDAP/TD VACCINES (1 - Tdap)] Future Scheduled 2006 DTAP/TDAP/TD VACCINES [facility] 00:00:00 (1 - Tdap) [code = Medical C enter DTAP/TDAP/TD VACCINES (1 - Tdap)] Future Scheduled 2005 HEPATITIS C SCRE[facility]ING [facility] 00:00:00 [code = HEPATITIS C Medical Center SCREENING] Future Scheduled 2005 HEPATITIS C [facility]CRE[facility]ING [facility] 00:00:00 [code = HEPATITIS C Medical Center SCREENING] Future Scheduled 2005 HEPATITIS C [facility]CRE[facility]ING [facility] 00:00:00 [code = HEPATITIS C Medical Center SCREENING] Future Scheduled [address] [facility] 00:00:00 0-64 YRS (1 of 2 - Medical C enter PPSV23) [code = PNEUMOCOCCAL VACCINE 0-64 YRS (1 of 2 - PPSV23)] Future Scheduled [address] [facility] Test 00:00:00 0-64 YRS (1 of 2 - Medical C enter PPSV23) [code = PNEUMOCOCCAL VACCINE 0-64 YRS (1 of 2 - PPSV23)] Future Scheduled 1992 COVID-19 VACCINE (1) [facility] 00:00:00 [code = COVID-[address] VACCINE (1)] Future Scheduled 1992 COVID-19 VACCINE (1) [facility] 00:00:00 [code = COVID-[address] VACCINE (1)] Future Scheduled 1987 COVID-19 VACCINE (#1) [facility] 00:00:00 [code = COVID-[address] VACCINE (#1)] Encounters Start End Encounter Admission Attending Care Care Encounter Source Date/Time Date/Time Type Type Clinicians Facility Department ID 2021-01-29 Inpatient [facility] [id number] [facility] 06:28:00 EDI 2022-03-06 2022-03-06 CRICKET Clarke [id number] Univers 00:00:00 00:00:00 (Out) Kathe POOLE [id number] it y [facility] [id number] Kenneth as [id number] [address] 2022-03-05 2022-03-05 Outpatient R [facility] [id number] Univers 16:40:00 17:32:47 [facility]-05 2022-03-05 Urgent MERRY Mills [id number] Univers 16:40:00 17:32:47 Care [facility] [id number] [facility] [id number] Kenneth as VICKY?BLEA [id number] Co dic[address] MEDICAL OFFICE BUILDING 2022-03-05 2022-03-05 Orders Doctor CRICKET [id number] Univers 00:00:00 00:00:00 Only Unassigned, VIRGILIO [id number] ity of [place] [facility] [id number] Kenneth as [id number] [address] 2021-07-12 2021-07-12 Outpatient R [facility] [id number] Univers 10:40:00 11:09:48 LIZY ity of [facility] 2021-07-12 2021-07-12 Tato Cowart [facility] [id number] Univers 10:40:00 11:09:48 Care [facility] [id number] it y of [place] [id number] Kenneth as VICKY?BLEA [id number] [address] MEDICAL OFFICE BUILDING 2021-01-29 2021-02-21 [facility] Edi Byrd [facility] [id number] [facility] 06:28:00 20:30:00 [facility]counter [facility] 2021-02-01 2021-02-01 Travel [facility] [id number] [facility] 00:00:00 00:00:00 [facility] Results Test Description Test Time Test Comments Results Result Comments Source POC-Glucose meter 2021-02-21 11:40:00 Test Item Value Reference Range Interpretation Comme nts POC-Glucose Meter (test code = 106 mg/dL 70-110 : TESTED AT [address] 1538) [facility] [address]: Mobile Home Installer/Techni jatin ID = [id number] for Tamica Espinoza Lab Interpretation (test code = Normal 28581-1) [facility] [id number] 11:40:00 Test Item Value Reference Range Interpretation Comments POC-Glucose Meter (test 106 mg/dL 70-110 : TE STED AT [facility] code = 1538) [address] [place] [address] [place] [address]: Mobile Home Installer/Techni jatin ID = [id number] for Alexis Tamica Lab Interpretation (test Normal code = 87163-2) [facility]UCOSE [id number] 11:40:00 Test Item Value Reference Range Interpretation Comments POC-GLUCOSE METER 106 mg/dL 70-110 : TESTED A T [facility] 1317 (BEAKER) (test code [address], = 1538) [facility] 77 478: Mobile Home Installer/Techni jatin ID = [id number] for Tamica Newton RAD, CHEST, 1 VIEW, NON [id number] 08:21:00Reason for exam:->hypoxic covidHUNTINGTON BEACH [facility]ENTERName: BERGERFLORENCE : 1985 Sex: MFINAL REPORT Chest AP portable erect Comparison exam: 02/20/2021 History provided: Hypoxic,COVID Heart size normal. Bilateral airspace disease of COVID 19 infection persists without change. Right-sided PICC line in place. Signed: Tashi Clay Verified Date/Time: 02/21/2021 08:21:16 Reading Location: [facility] Radiology Reading Room Electronically signed by: TASHI CLAY on 108:21 [id number] 06:27:00 Test Item Value Reference Range Interpretation Comments Ferritin (test code = 320.30 ng/mL 22.00-322.00 2276-4) PENNY (test code = PENNY) Mobile Home Installer ID - [id number] Lab Interpretation (test Normal code = 14197-0) [facility] 06:27:00 Test Item Value Reference Range Interpretation Comments Ferritin (test code = 320.30 ng/mL 22.00-322.00 2276-4) PENNY (test code = PENNY) Mobile Home Installer ID - [id number] Lab Interpretation (test Normal code = 27323-4) [facility]2021-[facility]-20 06:27:00 Test Item Value Reference Range Interpretation Comments FERRITIN (BEAKER) (test code = 320.30 ng/mL 22.00-322.00 361) Mobile Home Installer ID - [id number] 05:32:00 Test Item Value Reference Range Interpretation Comments Magnesium (test code = 2.1 mg/dL 1.5-3.0 16124-0) PENNY (test code = PENNY) Mobile Home Installer ID - [id number] ID - [id number] ID - [id number] ID - [id number] Lab Interpretation (test Normal code = 26073-3) [facility] CenterMagnesium2021-08-20 05:32:00 Test Item Value Reference Range Interpretation Comments Magnesium (test code = 2.1 mg/dL 1.5-3.0 68618-2) PENNY (test code = PENNY) Mobile Home Installer ID - [id number] ID - [id number] ID - [id number] ID - [id number] Lab Interpretation (test Normal code = 97725-2) [facility]UM2021-08-20 05:32:00 Test Item Value Reference Range Interpretation Comments MAGNESIUM (BEAKER) (test code = 2.1 mg/dL 1.5-3.0 627) Mobile Home Installer ID - [id number] ID - [id number] ID - [id number] ID - [id number] Metabolic [id number] 05:31:00 Test Item Value Reference Range Interpretation Comments Sodium (test code = 139 meq/L 385-769 3706-2) Potassium (test code = 3.6 meq/L 3.6-5.5 2823-3) Chloride (test code = 108 meq/L 98-106 H 5-0) CO2 (test code = 23 meq/L 2027-9) BUN (test code = 17 mg/dL 04-29 3094-0) Creatinine (test code 0.86 mg/dL 0.50-1.20 = 2160-0) Glucose (test code = 102 mg/dL 70-110 2345-7) Calcium (test code = 8.8 mg/dL 8.5-10.5 73025-2) EGFR (test code = 102 mL/min/1.[place] [address]-4) NOT ACCURATE CREATININE CLEARANCE IN PREDICTING GLOMERULAR FILTRATION RATE . ESTIMATED GFR I S NOT APPLICABLE FOR DIALYSIS PATIENTS. PENNY (test code = PENNY) Mobile Home Installer ID - [id number] r ID - [id number] r ID - [id number] r ID - [id number] r ID - [id number] r ID - [id number] r ID - [id number] r ID - [id number] r ID - [id number] Lab Interpretation Abnormal (test code = 27863-2) [facility] CenterD-[id number] 05:31:00 Test Item Value Reference Range Interpretation Comments D-Dimer, Quant (test 0.97 See_Comment H Final I nformation code = 52307-4) (Auto Output ) [Automated message] The system which generated this result transmitted reference range : <0.50 MG/L FEU. The reference range was not used to interpr et this result as normal/abnormal . PENNY (test code = REGARDING D-DIMER PENNY) RESULTS: The 98% NPV (Negative Predictive Value) for DVT/PE exclusion is 0.50 mg/L FEU as suggested by the merchandise flow manager and as approved by the FDA. Lab Interpretation Abnormal (test code = 08807-4) [facility] CenterBasic Metabolic [id number] 05:31:00 Test Item Value Reference Range Interpretation Comments Sodium (test code = 139 meq/L 752-280 1425-2) Potassium (test code = 3.6 meq/L 3.6-5.5 2823-3) Chloride (test code = 108 meq/L 98-106 H 5-0) CO2 (test code = 23 meq/L -29 2027-9) BUN (test code = 17 mg/dL 04-29 3094-0) Creatinine (test code 0.86 mg/dL 0.50-1.20 = 2160-0) Glucose (test code = 102 mg/dL 70-110 2345-7) Calcium (test code = 8.8 mg/dL 8.5-10.5 25951-8) EGFR (test code = 102 mL/min/1.73 [place] [address]-8) NOT ACCURATE CREATININE CLEARANCE IN PREDICTING GLOMERULAR FILTRATION RATE . ESTIMATED GFR I S NOT APPLICABLE FOR DIALYSIS PATIENTS. PENNY (test code = PENNY) Mobile Home Installer ID - [id number] r ID - [id number] r ID - [id number] r ID - [id number] r ID - [id number] r ID - [id number] r ID - [id number] r ID - [id number] r ID - [id number] Lab Interpretation Abnormal (test code = 56763-9) [facility] CenterD-[id number] 05:31:00 Test Item Value Reference Range Interpretation Comments D-Dimer, Quant (test 0.97 See_Comment H Final I nformation code = 13777-6) (Auto Output ) [Automated message] The system which generated this result transmitted reference range : <0.50 MG/L FEU. The reference range was not used to interpr et this result as normal/abnormal . PENNY (test code = REGARDING D-DIMER PENNY) RESULTS: The 98% NPV (Negative Predictive Value) for DVT/PE exclusion is 0.50 mg/L FEU as suggested by the merchandise flow manager and as approved by the FDA. Lab Interpretation Abnormal (test code = 40460-3) [facility] CenterBASIC METABOLIC [id number] 05:31:00 Test Item Value Reference Range Interpretation Comments SODIUM (BEAKER) 139 meq/L 135-148 (test code = 381) POTASSIUM (BEAKER) 3.6 meq/L 3.6-5.5 (test code = 379) CHLORIDE (BEAKER) 108 meq/L 98-106 H (test code = 382) CO2 (BEAKER) (test 23 meq/L 20-29 code = 355) BLOOD UREA NITROGEN 17 mg/dL 10-26 (BEAKER) (test code = 354) CREATININE (BEAKER) 0.86 mg/dL 0.50-1.20 (test code = 358) GLUCOSE RANDOM 102 mg/dL 70-110 (BEAKER) (test code = 652) CALCIUM (BEAKER) 8.8 mg/dL 8.5-10.5 (test code = 697) EGFR (BEAKER) (test 102 mL/min/1.73 ESTIM ATED GFR IS code = 1092) sq m NOT ACCURATE CREATININE CLEARANCE IN PREDICTING GLOMERULAR FILTRATION RATE . ESTIMATED GFR I S NOT APPLICABLE FOR DIALYSIS PATIEN TS. Mobile Home Installer ID - [id number] ID - [id number] ID - [id number] ID - [id number] ID - [id number] ID - [id number] ID - [id number] ID - [id number] ID - [id number] 05:31:00 Test Item Value Reference Range Interpretation Comments D-DIMER QUANTITATIVE 0.97 MG/L FEU <0.50 H Final Information ([facility]) (test code = (Auto Output) 671) REGARDING D-DIMER RESULTS: The 98% NPV (Negative Predictive Value) for DVT/PE exclusion is 0.50 mg/LFEU as suggested by the merchandise flow manager and as approved by the FDA.[id number] 05:29:00 Test Item Value Reference Range Interpretation Comments Phosphorus (test code = 3.6 mg/dL 2.5-4.5 2777-1) PENNY (test code = PENNY) Mobile Home Installer ID - [id number] Lab Interpretation (test Normal code = 17245-3) [facility] Test Item Value Reference Range Interpretation Comments Phosphorus (test code = 3.6 mg/dL 2.5-4.5 2777-1) PENNY (test code = PENNY) Mobile Home Installer ID - [id number] Lab Interpretation (test Normal code = 24011-2) [facility] 05:29[facility]00 Test Item Value Reference Range Interpretation Comments PHOSPHORUS (BEAKER) (test code = 3.6 mg/dL 2.5-4.5 604) Mobile Home Installer ID - [id number] with platelet count + automated [id number] 04:53:00 Test Item Value Reference Range Interpretation Comments WBC (test code = 6690-2) 6.3 See_Comment [A utomated message] The system [employer] generated this result transmitted ref erence range: 4.0 - 10 .0 K/L. The refe rence range was not u sed to interpret this result as normal/abnor mal. RBC (test code = 789-8) 4.00 See_Comment L [Au tomated message] The system [employer] generated this result transmitted ref erence range: 4.20 - 5 .80 M/L. The refe rence range was not u sed to interpret this result as normal/abnor mal. MCHC (test code = 786-4) 33.5 See_Comment L [A utomated message] The system [employer] generated this result transmitted ref erence range: 32.0 - 3 6.0 GM/DL. The refe rence range was not u sed to interpret this result as normal/abnor mal. Hematocrit (test code = 36.4 % 36.0-50.0 4544-3) MCV (test code = 787-2) 91.0 fL 82.0-99.0 MCH (test code = 785-6) 30.5 pg 27.0-33.0 RDW (test code = 788-0) 14.4 % 12.0-15.0 Platelets (test code = 131 See_Comment L [Aut omated message] 777-3) The system [employer] generated this result transmitted ref erence range: 150 - 43 0 K/CU MM. The referen ce range was not u sed to interpret this result as normal/abnor mal. MPV (test code = 10.9 fL 6.0-11.5 11482-4) nRBC (test code = 413) 0 See_Comment [Aut omated message] The system [employer] generated this result transmitted ref erence range: 0 - 0 /1 00 WBC. The refere nce range was not u sed to interpret this result as normal/abnor mal. % Neutros (test code = 67 % 429) % Lymphs (test code = 23 % 430) % Monos (test code = 8 % 431) % Eos (test code = 432) 1 % % Baso (test code = 437) 0 % # Neutros (test code = 4.23 See_Comment [Aut omated message] 670) The system [employer] generated this result transmitted ref erence range: 1.80 - 8 .00 K/L. The refe rence range was not u sed to interpret this result as normal/abnor mal. # Lymphs (test code = 1.48 See_Comment [Auto mated message] 414) The system [employer] generated this result transmitted ref erence range: 1.48 - 4 .50 K/L. The refe rence range was not u sed to interpret this result as normal/abnor mal. # Monos (test code = 0.52 See_Comment [Autom ated message] 415) The system [employer] generated this result transmitted ref erence range: 0.00 - 1 .30 K/L. The refe rence range was not u sed to interpret this result as normal/abnor mal. # Eos (test code = 416) 0.03 See_Comment [Au tomated message] The system [employer] generated this result transmitted ref erence range: 0.00 - 0 .50 K/L. The refe rence range was not u sed to interpret this result as normal/abnor mal. # Baso (test code = 417) 0.01 See_Comment [A utomated message] The system [employer] generated this result transmitted ref erence range: 0.00 - 0 .20 K/L. The refe rence range was not u sed to interpret this result as normal/abnor mal. Immature 1 % 0-0 H Granulocytes-Relative (test code = 2801) Lab Interpretation (test Abnormal code = 31061-0) [facility] with platelet count + automated [id number] 04:53:00 Test Item Value Reference Range Interpretation Comments WBC (test code = 6690-2) 6.3 See_Comment [A utomated message] The system [employer] generated this result transmitted ref erence range: 4.0 - 10 .0 K/L. The refe rence range was not u sed to interpret this result as normal/abnor mal. RBC (test code = 789-8) 4.00 See_Comment L [Au tomated message] The system [employer] generated this result transmitted ref erence range: 4.20 - 5 .80 M/L. The refe rence range was not u sed to interpret this result as normal/abnor mal. MCHC (test code = 786-4) 33.5 See_Comment L [A utomated message] The system [employer] generated this result transmitted ref erence range: 32.0 - 3 6.0 GM/DL. The refe rence range was not u sed to interpret this result as normal/abnor mal. Hematocrit (test code = 36.4 % 36.0-50.0 4544-3) MCV (test code = 787-2) 91.0 fL 82.0-99.0 MCH (test code = 785-6) 30.5 pg 27.0-33.0 RDW (test code = 788-0) 14.4 % 12.0-15.0 Platelets (test code = 131 See_Comment L [Aut omated message] 777-3) The system [employer] generated this result transmitted ref erence range: 150 - 43 0 K/CU MM. The referen ce range was not u sed to interpret this result as normal/abnor mal. MPV (test code = 10.9 fL 6.0-11.5 80050-2) nRBC (test code = 413) 0 See_Comment [Aut omated message] The system [employer] generated this result transmitted ref erence range: 0 - 0 /1 00 WBC. The refere nce range was not u sed to interpret this result as normal/abnor mal. % Neutros (test code = 67 % 429) % Lymphs (test code = 23 % 430) % Monos (test code = 8 % 431) % Eos (test code = 432) 1 % % Baso (test code = 437) 0 % # Neutros (test code = 4.23 See_Comment [Aut omated message] 670) The system [employer] generated this result transmitted ref erence range: 1.80 - 8 .00 K/L. The refe rence range was not u sed to interpret this result as normal/abnor mal. # Lymphs (test code = 1.48 See_Comment [Auto mated message] 414) The system [employer] generated this result transmitted ref erence range: 1.48 - 4 .50 K/L. The refe rence range was not u sed to interpret this result as normal/abnor mal. # Monos (test code = 0.52 See_Comment [Autom ated message] 415) The system [employer] generated this result transmitted ref erence range: 0.00 - 1 .30 K/L. The refe rence range was not u sed to interpret this result as normal/abnor mal. # Eos (test code = 416) 0.03 See_Comment [Au tomated message] The system [employer] generated this result transmitted ref erence range: 0.00 - 0 .50 K/L. The refe rence range was not u sed to interpret this result as normal/abnor mal. # Baso (test code = 417) 0.01 See_Comment [A utomated message] The system [employer] generated this result transmitted ref erence range: 0.00 - 0 .20 K/L. The refe rence range was not u sed to interpret this result as normal/abnor mal. Immature 1 % 0-0 H Granulocytes-Relative (test code = 2801) Lab Interpretation (test Abnormal code = 57197-8) [facility] W/PLT COUNT & AUTO [id number] 04:53:00 Test Item Value Reference Range Interpretation Comments WHITE BLOOD CELL COUNT (BEAKER) 6.3 K/ L 4.0-10.0 (test code = 775) RED BLOOD CELL COUNT (BEAKER) 4.00 M/ L 4.20-5.80 L (test code = 761) HEMOGLOBIN (BEAKER) (test code = 12.2 GM/DL 13.0-16.8 L 410) HEMATOCRIT (BEAKER) (test code = 36.4 % 36.0-50.0 411) MEAN CORPUSCULAR VOLUME (BEAKER) 91.0 fL 82.0-99.0 (test code = 753) MEAN CORPUSCULAR HEMOGLOBIN 30.5 pg 27.0-33.0 (BEAKER) (test code = 751) MEAN CORPUSCULAR HEMOGLOBIN CONC 33.5 GM/DL 32.0-36.0 (BEAKER) (test code = 752) RED CELL DISTRIBUTION WIDTH 14.4 % 12.0-15.0 (BEAKER) (test code = 412) PLATELET COUNT (BEAKER) (test 131 K/CU MM 150-430 L code = 756) MEAN PLATELET VOLUME (BEAKER) 10.9 fL 6.0-11.5 (test code = 754) NUCLEATED RED BLOOD CELLS 0 /100 WBC 0-0 (BEAKER) (test code = 413) NEUTROPHILS RELATIVE PERCENT 67 % (BEAKER) (test code = 429) LYMPHOCYTES RELATIVE PERCENT 23 % (BEAKER) (test code = 430) MONOCYTES RELATIVE PERCENT 8 % (BEAKER) (test code = 431) EOSINOPHILS RELATIVE PERCENT 1 % (BEAKER) (test code = 432) BASOPHILS RELATIVE PERCENT 0 % (BEAKER) (test code = 437) NEUTROPHILS ABSOLUTE COUNT 4.23 K/ L 1.80-8.00 (BEAKER) (test code = 670) LYMPHOCYTES ABSOLUTE COUNT 1.48 K/ L 1.48-4.50 (BEAKER) (test code = 414) MONOCYTES ABSOLUTE COUNT (BEAKER) 0.52 K/ L 0.00-1.30 (test code = 415) EOSINOPHILS ABSOLUTE COUNT 0.03 K/ L 0.00-0.50 (BEAKER) (test code = 416) BASOPHILS ABSOLUTE COUNT (BEAKER) 0.01 K/ L 0.00-0.20 (test code = 417) IMMATURE GRANULOCYTES-RELATIVE 1 % 0-0 H PERCENT (BEAKER) (test code = 2801) POCT-GLUCOSE [id number] 01:18:00 Test Item Value Reference Range Interpretation Comments POC-GLUCOSE METER 98 mg/dL 70-110 : TESTED A T [facility] [address] (BEAKER) (test code = [address]) [place] [address]: Mobile Home Installer/Techni jatin ID = [id number] for Yanni Wade POCT-GLUCOSE [id number] 16:42:00 Test Item Value Reference Range Interpretation Comments POC-GLUCOSE METER 126 mg/dL 70-110 H : TESTED A T [facility] [address] (BEAKER) (test code [address], = [address]) [place] [id number]: Mobile Home Installer/Techni jatin ID = [id number] for Tamica Newton RAD, CHEST, 1 VIEW, NON [id number] 08:47:00Reason for exam:->hypoxic covidCH[facility]: FLORENCE BERGER : 1985 Sex: MFINAL REPORT Chest AP portable History provided: Hypoxic, COVID pneumonia Heart size within normal limits. Patchy airspace opacity predominating within the right lung consistent with COVID 19infection unchanged. PICC line in good position. Signed: Tashi Clay MDReport Verified Date/Time: 02/20/2021 08:47:20 Reading Location: [facility] Radiology Reading Room POCT-GLUCOSE [id number] 06:32:00 Test Item Value Reference Range Interpretation Comments POC-GLUCOSE METER 99 mg/dL 70-110 : TESTED A T [facility] [address] (BEAKER) (test code = [address]) [facility] [address]: Mobile Home Installer/Techni jatin ID = [id number] for Yanni Wade [id number] 05:44:00 Test Item Value Reference Range Interpretation Comments MAGNESIUM (BEAKER) (test code = 2.3 mg/dL 1.5-3.0 627) Mobile Home Installer ID - [id number] ID - [id number] ID - [id number] ID - [id number] BASIC METABOLIC [id number] 05:43:00 Test Item Value Reference Range Interpretation Comments SODIUM (BEAKER) 137 meq/L 135-148 (test code = 381) POTASSIUM (BEAKER) 4.0 meq/L 3.6-5.5 (test code = 379) CHLORIDE (BEAKER) 108 meq/L 98-106 H (test code = 382) CO2 (BEAKER) (test 21 meq/L 20-29 code = 355) BLOOD UREA NITROGEN 18 mg/dL 10-26 (BEAKER) (test code = 354) CREATININE (BEAKER) 0.71 mg/dL 0.50-1.20 (test code = 358) GLUCOSE RANDOM 108 mg/dL 70-110 (BEAKER) (test code = 652) CALCIUM (BEAKER) 9.1 mg/dL 8.5-10.5 (test code = 697) EGFR (BEAKER) (test 128 mL/min/1.73 ESTIM ATED GFR IS code = 1092) sq m NOT ACCURATE CREATININE CLEARANCE IN PREDICTING GLOMERULAR FILTRATION RATE . ESTIMATED GFR I S NOT APPLICABLE FOR DIALYSIS PATIEN TS. Mobile Home Installer ID - [id number] ID - [id number] ID - [id number] ID - [id number] ID - [id number] ID - [id number] ID - [id number] ID - [id number] ID - [id number] 05:42:00 Test Item Value Reference Range Interpretation Comments PHOSPHORUS (BEAKER) (test code = 3.4 mg/dL 2.5-4.5 604) Mobile Home Installer ID - [id number] W/PLT COUNT & AUTO [id number] 05:28:00 Test Item Value Reference Range Interpretation Comments WHITE BLOOD CELL COUNT (BEAKER) 8.9 K/ L 4.0-10.0 (test code = 775) RED BLOOD CELL COUNT (BEAKER) 4.20 M/ L 4.20-5.80 (test code = 761) HEMOGLOBIN (BEAKER) (test code = 12.7 GM/DL 13.0-16.8 L 410) HEMATOCRIT (BEAKER) (test code = 38.0 % 36.0-50.0 411) MEAN CORPUSCULAR VOLUME (BEAKER) 90.5 fL 82.0-99.0 (test code = 753) MEAN CORPUSCULAR HEMOGLOBIN 30.2 pg 27.0-33.0 (BEAKER) (test code = 751) MEAN CORPUSCULAR HEMOGLOBIN CONC 33.4 GM/DL 32.0-36.0 (BEAKER) (test code = 752) RED CELL DISTRIBUTION WIDTH 14.1 % 12.0-15.0 (BEAKER) (test code = 412) PLATELET COUNT (BEAKER) (test 161 K/CU MM 150-430 code = 756) MEAN PLATELET VOLUME (BEAKER) 10.6 fL 6.0-11.5 (test code = 754) NUCLEATED RED BLOOD CELLS 0 /100 WBC 0-0 (BEAKER) (test code = 413) NEUTROPHILS RELATIVE PERCENT 83 % (BEAKER) (test code = 429) LYMPHOCYTES RELATIVE PERCENT 11 % (BEAKER) (test code = 430) MONOCYTES RELATIVE PERCENT 6 % (BEAKER) (test code = 431) EOSINOPHILS RELATIVE PERCENT 0 % (BEAKER) (test code = 432) BASOPHILS RELATIVE PERCENT 0 % (BEAKER) (test code = 437) NEUTROPHILS ABSOLUTE COUNT 7.36 K/ L 1.80-8.00 (BEAKER) (test code = 670) LYMPHOCYTES ABSOLUTE COUNT 0.93 K/ L 1.48-4.50 L (BEAKER) (test code = 414) MONOCYTES ABSOLUTE COUNT (BEAKER) 0.52 K/ L 0.00-1.30 (test code = 415) EOSINOPHILS ABSOLUTE COUNT 0.00 K/ L 0.00-0.50 (BEAKER) (test code = 416) BASOPHILS ABSOLUTE COUNT (BEAKER) 0.01 K/ L 0.00-0.20 (test code = 417) IMMATURE GRANULOCYTES-RELATIVE 1 % 0-0 H PERCENT (BEAKER) (test code = 2801) POCT-GLUCOSE [id number] 20:44:00 Test Item Value Reference Range Interpretation Comments POC-GLUCOSE METER 139 mg/dL 70-110 H : TESTED A T [facility] [address] (BEAKER) (test code [facility] [address], = [address]) [facility] [address]: Mobile Home Installer/Techni jatin ID = [id number] for Mous soki Dianelys RAD, CHEST, 1 VIEW, NON [id number] 07:55:00Reason for exam:->hypoxic covidCHI [facility]ame: FLORENCE BERGER : 1985 Sex: MFINAL REPORT CHEST AP PORTABLE ERECT COMPARISON STUDY: 02/18/2021 History provided: Hypoxic, COVID positive Heart size normal. Bilateral airspace disease of COVID 19 pneumonia shows no significant change. PICC line in place. Signed: Tashi Clay MDReport Verified Date/Time: 02/19/2021 07:55:38 Reading Location: [facility] Radiology Reading Room POCT-GLUCOSE [id number] 06:48:00 Test Item Value Reference Range Interpretation Comments POC-GLUCOSE METER 105 mg/dL 70-110 : TESTED A T [facility] [address] (BEAKER) (test code [address], = [address]) [facility] [address]: Mobile Home Installer/Techni jatin ID = [id number] for Hao Larson [id number] 06:13:00 Test Item Value Reference Range Interpretation Comments FERRITIN (BEAKER) (test code = 520.00 ng/mL 22.00-322.00 H 361) Mobile Home Installer ID - [id number] 05:55:00 Test Item Value Reference Range Interpretation Comments MAGNESIUM (BEAKER) (test code = 2.3 mg/dL 1.5-3.0 627) Mobile Home Installer ID - LITOOperator ID - LITOOperator ID - LITOOperator ID - LITOBASIC METABOLIC [id number] 05:53:00 Test Item Value Reference Range Interpretation Comments SODIUM (BEAKER) 137 meq/L 135-148 (test code = 381) POTASSIUM (BEAKER) 3.9 meq/L 3.6-5.5 (test code = 379) CHLORIDE (BEAKER) 106 meq/L 98-106 (test code = 382) CO2 (BEAKER) (test 21 meq/L 20-29 code = 355) BLOOD UREA NITROGEN 20 mg/dL 10-26 (BEAKER) (test code = 354) CREATININE (BEAKER) 0.76 mg/dL 0.50-1.20 (test code = 358) GLUCOSE RANDOM 113 mg/dL 70-110 H (BEAKER) (test code = 652) CALCIUM (BEAKER) 9.1 mg/dL 8.5-10.5 (test code = 697) EGFR (BEAKER) (test 118 mL/min/1.73 ESTIM ATED GFR IS code = 1092) sq m NOT ACCURATE CREATININE CLEARANCE IN PREDICTING GLOMERULAR FILTRATION RATE . ESTIMATED GFR I S NOT APPLICABLE FOR DIALYSIS PATIEN TS. Mobile Home Installer ID - LITOOperator ID - LITOOperator ID - LITOOperator ID - LITOOperator ID - LITOOperator ID - LITOOperator ID - LITOOperator ID - LITOOperator ID - [id number] 05:53:00 Test Item Value Reference Range Interpretation Comments D-DIMER QUANTITATIVE 1.04 MG/L FEU <0.50 H Final Information (BEAKER) (test code = (Auto Output) 671) REGARDING D-DIMER RESULTS: The 98% NPV (Negative Predictive Value) for DVT/PE exclusion is 0.50 mg/LFEU as suggested by the merchandise flow manager and as approved by the FDA.[id number] 05:52:00 Test Item Value Reference Range Interpretation Comments PHOSPHORUS (BEAKER) (test code = 3.1 mg/dL 2.5-4.5 604) Mobile Home Installer ID - LITOCBC W/PLT COUNT & AUTO [id number] 05:41:00 Test Item Value Reference Range Interpretation Comments WHITE BLOOD CELL COUNT (BEAKER) 7.3 K/ L 4.0-10.0 (test code = 775) RED BLOOD CELL COUNT (BEAKER) 4.55 M/ L 4.20-5.80 (test code = 761) HEMOGLOBIN (BEAKER) (test code = 13.7 GM/DL 13.0-16.8 410) HEMATOCRIT (BEAKER) (test code = 41.2 % 36.0-50.0 411) MEAN CORPUSCULAR VOLUME (BEAKER) 90.5 fL 82.0-99.0 (test code = 753) MEAN CORPUSCULAR HEMOGLOBIN 30.1 pg 27.0-33.0 (BEAKER) (test code = 751) MEAN CORPUSCULAR HEMOGLOBIN CONC 33.3 GM/DL 32.0-36.0 (BEAKER) (test code = 752) RED CELL DISTRIBUTION WIDTH 14.4 % 12.0-15.0 (BEAKER) (test code = 412) PLATELET COUNT (BEAKER) (test 203 K/CU MM 150-430 code = 756) MEAN PLATELET VOLUME (BEAKER) 10.6 fL 6.0-11.5 (test code = 754) NUCLEATED RED BLOOD CELLS 0 /100 WBC 0-0 (BEAKER) (test code = 413) NEUTROPHILS RELATIVE PERCENT 88 % (BEAKER) (test code = 429) LYMPHOCYTES RELATIVE PERCENT 8 % (BEAKER) (test code = 430) MONOCYTES RELATIVE PERCENT 4 % (BEAKER) (test code = 431) EOSINOPHILS RELATIVE PERCENT 0 % (BEAKER) (test code = 432) BASOPHILS RELATIVE PERCENT 0 % (BEAKER) (test code = 437) NEUTROPHILS ABSOLUTE COUNT 6.36 K/ L 1.80-8.00 (BEAKER) (test code = 670) LYMPHOCYTES ABSOLUTE COUNT 0.59 K/ L 1.48-4.50 L (BEAKER) (test code = 414) MONOCYTES ABSOLUTE COUNT (BEAKER) 0.28 K/ L 0.00-1.30 (test code = 415) EOSINOPHILS ABSOLUTE COUNT 0.00 K/ L 0.00-0.50 (BEAKER) (test code = 416) BASOPHILS ABSOLUTE COUNT (BEAKER) 0.01 K/ L 0.00-0.20 (test code = 417) IMMATURE GRANULOCYTES-RELATIVE 0 % 0-0 PERCENT (BEAKER) (test code = 2801) POCT-GLUCOSE [id number] 22:26:00 Test Item Value Reference Range Interpretation Comments POC-GLUCOSE METER 102 mg/dL 70-110 : TESTED A T [facility] [address] (BEAKER) ([facility] [address] = [address]) [facility] [address]: Mobile Home Installer/Techni jatin ID = [id number] for Nga Nguyễn POCT-GLUCOSE [id number] 18:30:00 Test Item Value Reference Range Interpretation Comments POC-GLUCOSE METER 114 mg/dL 70-110 H : [facility] (test code [address], = [address]) [facility] [address]: Mobile Home Installer/Techni jatin ID = [id number] for Cinthia Moody POCT-GLUCOSE [id number] 12:07:00 Test Item Value Reference Range Interpretation Comments POC-GLUCOSE METER 98 mg/dL 70-110 : [facility] (LINUS[facility] (test code = [address]) [facility] [address]: Mobile Home Installer/Techni jatin ID = [id number] for Maira rCinthia RAD, CHEST, 1 VIEW, NON [id number] 09:55:00Reason for exam:->hyp[facility]idCH[facility]ame: FLORENCE BERGER : 1985 Sex: MFINAL REPORT Chest AP portable erect Comparison exam: 02/17/2021 History provided: Hypoxic,COVID Heart size magnified by projection and poor inspiration. Patchy airspace opacities of COVID 19infection persist. Feeding tube has been removed. PICC line in good position. Signed: Tashi Clay MDReport Verified Date/Time: 02/18/2021 09:55:46 Reading Location: [facility] Radiology Reading Room POCT-GLUCOSE [id number] 06:25:00 Test Item Value Reference Range Interpretation Comments POC-GLUCOSE METER 94 mg/dL 70-110 : Notified RN/MD: TESTED (LINUS) (test code = [address], [place] [address]: Mobile Home Installer/Techni jatin ID = [id number] for Ashley Thornton [id number] 05:42:00 Test Item Value Reference Range Interpretation Comments MAGNESIUM (BEAKER) (test code = 2.3 mg/dL 1.5-3.0 627) Mobile Home Installer ID - LITOOperator ID - LITOOperator ID - LITOOperator ID - LITOBASIC METABOLIC [id number] 05:40:00 Test Item Value Reference Range Interpretation Comments SODIUM (BEAKER) 140 meq/L 135-148 (test code = 381) POTASSIUM (BEAKER) 3.9 meq/L 3.6-5.5 (test code = 379) CHLORIDE (BEAKER) 106 meq/L 98-106 (test code = 382) CO2 (BEAKER) (test 23 meq/L 20-29 code = 355) BLOOD UREA NITROGEN 17 mg/dL 10-26 (BEAKER) (test code = 354) CREATININE (BEAKER) 0.68 mg/dL 0.50-1.20 (test code = 358) GLUCOSE RANDOM 98 mg/dL 70-110 (BEAKER) (test code = 652) CALCIUM (BEAKER) 9.0 mg/dL 8.5-10.5 (test code = 697) EGFR (BEAKER) (test 134 mL/min/1.73 ESTIM ATED GFR IS code = 1092) sq m NOT ACCURATE CREATININE CLEARANCE IN PREDICTING GLOMERULAR FILTRATION RATE . ESTIMATED GFR I S NOT APPLICABLE FOR DIALYSIS PATIEN TS. Mobile Home Installer ID - LITOOperator ID - LITOOperator ID - LITOOperator ID - LITOOperator ID - LITOOperator ID - LITOOperator ID - LITOOperator ID - LITOOperator ID - [id number] 05:38:00 Test Item Value Reference Range Interpretation Comments PHOSPHORUS (BEAKER) (test code = 3.2 mg/dL 2.5-4.5 604) Mobile Home Installer ID - LITOCBC W/PLT COUNT & AUTO [id number] 05:21:00 Test Item Value Reference Range Interpretation Comments WHITE BLOOD CELL COUNT (BEAKER) 8.7 K/ L 4.0-10.0 (test code = 775) RED BLOOD CELL COUNT (BEAKER) 4.37 M/ L 4.20-5.80 (test code = 761) HEMOGLOBIN (BEAKER) (test code = 13.3 GM/DL 13.0-16.8 410) HEMATOCRIT (BEAKER) (test code = 39.4 % 36.0-50.0 411) MEAN CORPUSCULAR VOLUME (BEAKER) 90.2 fL 82.0-99.0 (test code = 753) MEAN CORPUSCULAR HEMOGLOBIN 30.4 pg 27.0-33.0 (BEAKER) (test code = 751) MEAN CORPUSCULAR HEMOGLOBIN CONC 33.8 GM/DL 32.0-36.0 (BEAKER) (test code = 752) RED CELL DISTRIBUTION WIDTH 14.4 % 12.0-15.0 (BEAKER) (test code = 412) PLATELET COUNT (BEAKER) (test 214 K/CU MM 150-430 code = 756) MEAN PLATELET VOLUME (BEAKER) 10.5 fL 6.0-11.5 (test code = 754) NUCLEATED RED BLOOD CELLS 0 /100 WBC 0-0 (BEAKER) (test code = 413) NEUTROPHILS RELATIVE PERCENT 86 % (BEAKER) (test code = 429) LYMPHOCYTES RELATIVE PERCENT 9 % (BEAKER) (test code = 430) MONOCYTES RELATIVE PERCENT 5 % (BEAKER) (test code = 431) EOSINOPHILS RELATIVE PERCENT 0 % (BEAKER) (test code = 432) BASOPHILS RELATIVE PERCENT 0 % (BEAKER) (test code = 437) NEUTROPHILS ABSOLUTE COUNT 7.51 K/ L 1.80-8.00 (BEAKER) (test code = 670) LYMPHOCYTES ABSOLUTE COUNT 0.79 K/ L 1.48-4.50 L (BEAKER) (test code = 414) MONOCYTES ABSOLUTE COUNT (BEAKER) 0.40 K/ L 0.00-1.30 (test code = 415) EOSINOPHILS ABSOLUTE COUNT 0.00 K/ L 0.00-0.50 (BEAKER) (test code = 416) BASOPHILS ABSOLUTE COUNT (BEAKER) 0.01 K/ L 0.00-0.20 (test code = 417) IMMATURE GRANULOCYTES-RELATIVE 0 % 0-0 PERCENT (BEAKER) (test code = 2801) POCT-GLUCOSE [id number] 01:03:00 Test Item Value Reference Range Interpretation Comments POC-GLUCOSE METER 104 mg/dL 70-110 : Notified RN/MD: TESTED ([facility]) (test code AT [facility] [address] POINT = 1538) [place] [id number]: Mobile Home Installer/Techni jatin ID = [id number] for Ashley Thornton POCT-GLUCOSE [id number] 20:39:00 Test Item Value Reference Range Interpretation Comments POC-GLUCOSE METER 140 mg/dL 70-110 H : TESTED A T [facility] 1317 ([facility]) (test code [facility], = 1538) [place] [id number]: Mobile Home Installer/Techni jatin ID = [id number] for Zave r, Melvinda POCT-GLUCOSE [id number] 18:11:00 Test Item Value Reference Range Interpretation Comments POC-GLUCOSE METER 116 mg/dL 70-110 H : Notified RN/MD: TESTED ([facility]) (test code AT [facility] [address] [place] POINT = 1538) [place] [address]: Mobile Home Installer/Techni jatin ID = [id number] for Derick h, Lorita POCT-GLUCOSE [id number] 12:49:00 Test Item Value Reference Range Interpretation Comments POC-GLUCOSE METER 129 mg/dL 70-110 H : Notified RN/MD: TESTED ([facility]) (test code AT [facility] [address] POINT = 1538) [place] [address]: Mobile Home Installer/Techni jatin ID = [id number] for Derick h, Lorita RAD, CHEST, 1 VIEW, NON [id number] 07:51:00Reason for exam:->hypoxic covidH[facility] FLORENCE [facility]ERGER : 1985 Sex: MFINAL REPORT History: Covid pneumonia, hypoxia. FINDINGS: Compared with February 16, 2021, the heart and mediastinum are stable. Tube and line positions are unchanged. Patchy bilateral pulmonary airspace opacity, consistent with pneumonia, persists. No pneumothorax. No pleural effusions. Bones are unremarkable. IMPRESSION: 1. Stable chest. Signed: Cricket Lopezeport Verified Date/Time: 02/17/2021 07:51:32 Reading Location: [place] [address] Angio Body Reading Room [id number] 05:37:00 Test Item Value Reference Range Interpretation Comments FERRITIN (BEAKER) (test code = 690.10 ng/mL 22.00-322.00 H 361) Mobile Home Installer ID - [id number] 05:36:00 Test Item Value Reference Range Interpretation Comments D-DIMER QUANTITATIVE 2.16 MG/L FEU <0.50 H Final Information (BEAKER) (test code = (Auto Output) 671) REGARDING D-DIMER RESULTS: The 98% NPV (Negative Predictive Value) for DVT/PE exclusion is 0.50 mg/LFEU as suggested by the merchandise flow manager and as approved by the FDA.CBC W/PLT COUNT & AUTO [id number] 05:24:00 Test Item Value Reference Range Interpretation Comments WHITE BLOOD CELL COUNT (BEAKER) 9.7 K/ L 4.0-10.0 (test code = 775) RED BLOOD CELL COUNT (BEAKER) 4.10 M/ L 4.20-5.80 L (test code = 761) HEMOGLOBIN (BEAKER) (test code = 12.4 GM/DL 13.0-16.8 L 410) HEMATOCRIT (BEAKER) (test code = 36.5 % 36.0-50.0 411) MEAN CORPUSCULAR VOLUME (BEAKER) 89.0 fL 82.0-99.0 (test code = 753) MEAN CORPUSCULAR HEMOGLOBIN 30.2 pg 27.0-33.0 (BEAKER) (test code = 751) MEAN CORPUSCULAR HEMOGLOBIN CONC 34.0 GM/DL 32.0-36.0 (BEAKER) (test code = 752) RED CELL DISTRIBUTION WIDTH 14.0 % 12.0-15.0 (BEAKER) (test code = 412) PLATELET COUNT (BEAKER) (test 194 K/CU MM 150-430 code = 756) MEAN PLATELET VOLUME (BEAKER) 9.7 fL 6.0-11.5 (test code = 754) NUCLEATED RED BLOOD CELLS 0 /100 WBC 0-0 (BEAKER) (test code = 413) NEUTROPHILS RELATIVE PERCENT 85 % (BEAKER) (test code = 429) LYMPHOCYTES RELATIVE PERCENT 10 % (BEAKER) (test code = 430) MONOCYTES RELATIVE PERCENT 5 % (BEAKER) (test code = 431) EOSINOPHILS RELATIVE PERCENT 0 % (BEAKER) (test code = 432) BASOPHILS RELATIVE PERCENT 0 % (BEAKER) (test code = 437) NEUTROPHILS ABSOLUTE COUNT 8.22 K/ L 1.80-8.00 H (BEAKER) (test code = 670) LYMPHOCYTES ABSOLUTE COUNT 1.01 K/ L 1.48-4.50 L (BEAKER) (test code = 414) MONOCYTES ABSOLUTE COUNT (BEAKER) 0.45 K/ L 0.00-1.30 (test code = 415) EOSINOPHILS ABSOLUTE COUNT 0.00 K/ L 0.00-0.50 (BEAKER) (test code = 416) BASOPHILS ABSOLUTE COUNT (BEAKER) 0.01 K/ L 0.00-0.20 (test code = 417) IMMATURE GRANULOCYTES-RELATIVE 0 % 0-0 PERCENT (BEAKER) (test code = 2801) [id number] 05:18:00 Test Item Value Reference Range Interpretation Comments MAGNESIUM (BEAKER) (test code = 2.2 mg/dL 1.5-3.0 627) Mobile Home Installer ID - [id number] ID - [id number] ID - [id number] ID - [id number] BASIC METABOLIC [id number] 05:16:00 Test Item Value Reference Range Interpretation Comments SODIUM (BEAKER) 139 meq/L 135-148 (test code = 381) POTASSIUM (BEAKER) 3.8 meq/L 3.6-5.5 (test code = 379) CHLORIDE (BEAKER) 109 meq/L 98-106 H (test code = 382) CO2 (BEAKER) (test 23 meq/L 20-29 code = 355) BLOOD UREA NITROGEN 21 mg/dL 10-26 (BEAKER) (test code = 354) CREATININE (BEAKER) 0.69 mg/dL 0.50-1.20 (test code = 358) GLUCOSE RANDOM 116 mg/dL 70-110 H (BEAKER) (test code = 652) CALCIUM (BEAKER) 8.5 mg/dL 8.5-10.5 (test code = 697) EGFR (BEAKER) (test 132 mL/min/1.73 ESTIM ATED GFR IS code = 1092) sq m NOT ACCURATE CREATININE CLEARANCE IN PREDICTING GLOMERULAR FILTRATION RATE . ESTIMATED GFR I S NOT APPLICABLE FOR DIALYSIS PATIEN TS. Mobile Home Installer ID - [id number] ID - [id number] ID - [id number] ID - [id number] ID - [id number] ID - [id number] ID - [id number] ID - [id number] ID - [id number] 05:14:00 Test Item Value Reference Range Interpretation Comments PHOSPHORUS (BEAKER) (test code = 2.7 mg/dL 2.5-4.5 604) Mobile Home Installer ID - [id number] [id number] 00:23:00 Test Item Value Reference Range Interpretation Comments POC-GLUCOSE METER 152 mg/dL 70-110 H : Notified RN/MD: TESTED ([facility]) (test code AT [facility] [address] = 1538) [facility] [id number]: Mobile Home Installer/Techni jatin ID = [id number] for Ashley Thornton POCT-GLUCOSE [id number] 23:54:00 Test Item Value Reference Range Interpretation Comments POC-GLUCOSE METER 142 mg/dL 70-110 H : [facility] (test code [address] [facility], = 1538) [facility] [address]: Mobile Home Installer/Techni jatin ID = [id number] for Rajni Pate POCT-GLUCOSE [id number] 18:12:00 Test Item Value Reference Range Interpretation Comments POC-GLUCOSE METER 116 mg/dL 70-110 H : [facility] (test code [address] [facility], = 1538) [facility] [address]: Mobile Home Installer/Techni jatin ID = [id number] for Cortez, Fransisca POCT-GLUCOSE [id number] 13:13:00 Test Item Value Reference Range Interpretation Comments POC-GLUCOSE METER 116 mg/dL 70-110 H : TESTED A T [facility] [address] (BEAKER) (test code [address], = 1538) [place] [id number]: Mobile Home Installer/Techni jatin ID = [id number] for Ali, Franssica POCT-GLUCOSE [id number] 07:20:00 Test Item Value Reference Range Interpretation Comments POC-GLUCOSE METER 107 mg/dL 70-110 : TESTED A T [facility] [address] (BEAKER) (test code [address], = 1538) [place] [address]: Mobile Home Installer/Techni jatin ID = [id number] for Rajni Pate POCT-GLUCOSE [id number] 07:20:00 Test Item Value Reference Range Interpretation Comments POC-GLUCOSE METER 117 mg/dL 70-110 H : TESTED A T [facility] [address] (BEAKER) (test code [address], = 1538) [place] [address]: Mobile Home Installer/Techni jatin ID = [id number] for Ali, Fransisca RAD, CHEST, 1 VIEW, NON [id number] 07:17:00Reason for exam:->hypoxic covidH[facility]: FLORENCE [facility]ER[facility] : 1985 Sex: MFINAL REPORT Chest one view. Clinical history: hypoxic covid Comparison: 02/15/2021 Discussion: A frontal chest is provided. Cardiomediastinal contours are unchanged. Lines and tubes are in stable position. Stable appearance of patchy bilateral airspace opacities. No pneumothorax or large effusion. Signed: Gordo Verma MDReport Verified Date/Time: 02/16/2021 07:17:15 Reading Location: [facility] B1 C013X Ortho Consult Reading Room CBC W/PLT COUNT & AUTO [id number] 05:00:00 Test Item Value Reference Range Interpretation Comments WHITE BLOOD CELL COUNT (BEAKER) 9.3 K/ L 4.0-10.0 (test code = 775) RED BLOOD CELL COUNT (BEAKER) 4.55 M/ L 4.20-5.80 (test code = 761) HEMOGLOBIN (BEAKER) (test code = 13.7 GM/DL 13.0-16.8 410) HEMATOCRIT (BEAKER) (test code = 39.8 % 36.0-50.0 411) MEAN CORPUSCULAR VOLUME (BEAKER) 87.5 fL 82.0-99.0 (test code = 753) MEAN CORPUSCULAR HEMOGLOBIN 30.1 pg 27.0-33.0 (BEAKER) (test code = 751) MEAN CORPUSCULAR HEMOGLOBIN CONC 34.4 GM/DL 32.0-36.0 (BEAKER) (test code = 752) RED CELL DISTRIBUTION WIDTH 13.9 % 12.0-15.0 (BEAKER) (test code = 412) PLATELET COUNT (BEAKER) (test 237 K/CU MM 150-430 code = 756) MEAN PLATELET VOLUME (BEAKER) 10.0 fL 6.0-11.5 (test code = 754) NUCLEATED RED BLOOD CELLS 0 /100 WBC 0-0 (BEAKER) (test code = 413) NEUTROPHILS RELATIVE PERCENT 71 % (BEAKER) (test code = 429) LYMPHOCYTES RELATIVE PERCENT 20 % (BEAKER) (test code = 430) MONOCYTES RELATIVE PERCENT 8 % (BEAKER) (test code = 431) EOSINOPHILS RELATIVE PERCENT 0 % (BEAKER) (test code = 432) BASOPHILS RELATIVE PERCENT 0 % (BEAKER) (test code = 437) NEUTROPHILS ABSOLUTE COUNT 6.53 K/ L 1.80-8.00 (BEAKER) (test code = 670) LYMPHOCYTES ABSOLUTE COUNT 1.86 K/ L 1.48-4.50 (BEAKER) (test code = 414) MONOCYTES ABSOLUTE COUNT (BEAKER) 0.77 K/ L 0.00-1.30 (test code = 415) EOSINOPHILS ABSOLUTE COUNT 0.01 K/ L 0.00-0.50 (BEAKER) (test code = 416) BASOPHILS ABSOLUTE COUNT (BEAKER) 0.02 K/ L 0.00-0.20 (test code = 417) IMMATURE GRANULOCYTES-RELATIVE 1 % 0-0 H PERCENT (BEAKER) (test code = 2801) [id number] 04:30:00 Test Item Value Reference Range Interpretation Comments MAGNESIUM (BEAKER) (test code = 2.3 mg/dL 1.5-3.0 627) Mobile Home Installer ID - [id number] ID - [id number] ID - [id number] ID - [id number] METABOLIC [id number] 04:30:00 Test Item Value Reference Range Interpretation Comments SODIUM (BEAKER) 143 meq/L 135-148 (test code = 381) POTASSIUM (BEAKER) 3.2 meq/L 3.6-5.5 L (test code = 379) CHLORIDE (BEAKER) 107 meq/L 98-106 H (test code = 382) CO2 (BEAKER) (test 25 meq/L 20-29 code = 355) BLOOD UREA NITROGEN 28 mg/dL 10-26 H (BEAKER) (test code = 354) CREATININE (BEAKER) 0.78 mg/dL 0.50-1.20 (test code = 358) GLUCOSE RANDOM 89 mg/dL 70-110 (BEAKER) (test code = 652) CALCIUM (BEAKER) 8.9 mg/dL 8.5-10.5 (test code = 697) EGFR (BEAKER) (test 115 mL/min/1.73 ESTIM ATED GFR IS code = 1092) sq m NOT ACCURATE CREATININE CLEARANCE IN PREDICTING GLOMERULAR FILTRATION RATE . ESTIMATED GFR I S NOT APPLICABLE FOR DIALYSIS PATIEN TS. Mobile Home Installer ID - [id number] ID - [id number] ID - [id number] ID - [id number] - [id number] ID - [id number] ID - [id number] ID - [id number] ID - [id number] ID - [id number] 04:27:00 Test Item Value Reference Range Interpretation Comments PHOSPHORUS (BEAKER) (test code = 2.8 mg/dL 2.5-4.5 604) Mobile Home Installer ID - [id number], ABDOMEN/KUB 1 VIEW [id number] 17:59:00Reason for exam:->dobhoff placement [facility] : 1985 Sex: MFINAL REPORT Abdomen one view Comparison: February 09, 2021 Reason for exam: dobhoff placement Findings: Tip of [place] projects over the expected location of descending duodenum. Visualized bowel gas pattern is nonspecific. No free air is identified. Signed: Gordo Verma Verified Date/Time: 02/15/2021 17:59:54 Reading Location: [facility] C0[facility] Ortho Consult Reading Room Electronically signedby: GORDO VERMA M.D. on 02/15/2021 05:59 PMPOCT-GLUCOSE [id number] 13:06:00 Test Item Value Reference Range Interpretation Comments POC-GLUCOSE METER 120 mg/dL 70-110 H : TESTED A T [facility] [address] (BEAKER) (test code [address], = 1538) [facility] [address]: Mobile Home Installer/Techni jatin ID = [id number] for Ali, Fransisca RAD, CHEST, 1 VIEW, NON [id number] 07:32:00Reason for exam:->hypoxic covidCH[facility]: FLORENCE [facility]ERGER : 1985 Sex: MFINAL REPORT RAD, CHEST, 1 VIEW, NON DEPT INDICATION: hypoxic covid COMPARISON: Prior day's exam FINDINGS: Portable frontal view of the chest. IMPRESSION: Support Lines: PICC tip overlies the right atrium Lungs and pleura: Bilateral airspace disease No pneumothorax.Heart and mediastinum: Normal contours.Additional findings: None. Signed: Yessica [place] Verified Date/Time: 02/15/2021 07:32:29 Reading Location: [address] Neuro Reading Room [id number] 05:15:00 Test Item Value Reference Range Interpretation Comments FERRITIN (BEAKER) (test code = 646.60 ng/mL 22.00-322.00 H 361) Mobile Home Installer ID - [id number] 04:57:00 Test Item Value Reference Range Interpretation Comments MAGNESIUM (BEAKER) (test code = 2.0 mg/dL 1.5-3.0 627) Mobile Home Installer ID - [id number] ID - [id number] ID - [id number] ID - [id number] BASIC METABOLIC [id number] 04:56:00 Test Item Value Reference Range Interpretation Comments SODIUM (BEAKER) 141 meq/L 135-148 (test code = 381) POTASSIUM (BEAKER) 3.6 meq/L 3.6-5.5 (test code = 379) CHLORIDE (BEAKER) 104 meq/L 98-106 (test code = 382) CO2 (BEAKER) (test 24 meq/L 20-29 code = 355) BLOOD UREA NITROGEN 27 mg/dL 10-26 H (BEAKER) (test code = 354) CREATININE (BEAKER) 0.87 mg/dL 0.50-1.20 (test code = 358) GLUCOSE RANDOM 93 mg/dL 70-110 (BEAKER) (test code = 652) CALCIUM (BEAKER) 9.6 mg/dL 8.5-10.5 (test code = 697) EGFR (BEAKER) (test 101 mL/min/1.73 ESTIM ATED GFR IS code = 1092) sq m NOT ACCURATE CREATININE CLEARANCE IN PREDICTING GLOMERULAR FILTRATION RATE . ESTIMATED GFR I S NOT APPLICABLE FOR DIALYSIS PATIEN TS. Mobile Home Installer ID - [id number] ID - [id number] ID - [id number] ID - [id number] ID - ebbx59Fagdzetq ID - ojsp01Jbzretgg ID - [id number] ID - mugj16Dgigskft ID - [id number] 04:55:00 Test Item Value Reference Range Interpretation Comments PHOSPHORUS (BEAKER) (test code = 1.9 mg/dL 2.5-4.5 L 604) Mobile Home Installer ID - [id number] 04:44:00 Test Item Value Reference Range Interpretation Comments D-DIMER QUANTITATIVE 1.58 MG/L FEU <0.50 H Final Information (BEAKER) (test code = (Auto Output) 671) REGARDING D-DIMER RESULTS: The 98% NPV (Negative Predictive Value) for DVT/PE exclusion is 0.50 mg/LFEU as suggested by the merchandise flow manager and as approved by the FDA.CBC W/PLT COUNT & AUTO [id number] 04:34:00 Test Item Value Reference Range Interpretation Comments WHITE BLOOD CELL COUNT (BEAKER) 15.4 K/ L 4.0-10.0 H (test code = 775) RED BLOOD CELL COUNT (BEAKER) 5.02 M/ L 4.20-5.80 (test code = 761) HEMOGLOBIN (BEAKER) (test code = 15.1 GM/DL 13.0-16.8 410) HEMATOCRIT (BEAKER) (test code = 43.9 % 36.0-50.0 411) MEAN CORPUSCULAR VOLUME (BEAKER) 87.5 fL 82.0-99.0 (test code = 753) MEAN CORPUSCULAR HEMOGLOBIN 30.1 pg 27.0-33.0 (BEAKER) (test code = 751) MEAN CORPUSCULAR HEMOGLOBIN CONC 34.4 GM/DL 32.0-36.0 (BEAKER) (test code = 752) RED CELL DISTRIBUTION WIDTH 13.5 % 12.0-15.0 (BEAKER) (test code = 412) PLATELET COUNT (BEAKER) (test 300 K/CU MM 150-430 code = 756) MEAN PLATELET VOLUME (BEAKER) 10.2 fL 6.0-11.5 (test code = 754) NUCLEATED RED BLOOD CELLS 0 /100 WBC 0-0 (BEAKER) (test code = 413) NEUTROPHILS RELATIVE PERCENT 82 % (BEAKER) (test code = 429) LYMPHOCYTES RELATIVE PERCENT 11 % (BEAKER) (test code = 430) MONOCYTES RELATIVE PERCENT 7 % (BEAKER) (test code = 431) EOSINOPHILS RELATIVE PERCENT 0 % (BEAKER) (test code = 432) BASOPHILS RELATIVE PERCENT 0 % (BEAKER) (test code = 437) NEUTROPHILS ABSOLUTE COUNT 12.61 K/ L 1.80-8.00 H (BEAKER) (test code = 670) LYMPHOCYTES ABSOLUTE COUNT 1.62 K/ L 1.48-4.50 (BEAKER) (test code = 414) MONOCYTES ABSOLUTE COUNT (BEAKER) 1.01 K/ L 0.00-1.30 (test code = 415) EOSINOPHILS ABSOLUTE COUNT 0.00 K/ L 0.00-0.50 (BEAKER) (test code = 416) BASOPHILS ABSOLUTE COUNT (BEAKER) 0.03 K/ L 0.00-0.20 (test code = 417) IMMATURE GRANULOCYTES-RELATIVE 1 % 0-0 H PERCENT (BEAKER) (test code = 2801) POCT-GLUCOSE [id number] 23:57:00 Test Item Value Reference Range Interpretation Comments POC-GLUCOSE METER 113 mg/dL 70-110 H : TESTED A T [facility] [address] (BEAKER) (test code [facility] [address], = 1538) [place] [address]: Mobile Home Installer/Techni jatin ID = [id number] for Donavan Arce POCT-GLUCOSE [id number] 14:53:00 Test Item Value Reference Range Interpretation Comments POC-GLUCOSE METER 184 mg/dL 70-110 H : TESTED A T [facility] [address] (BEAKER) (test code [address], = 1538) [facility] [address]: Mobile Home Installer/Techni jatin ID = [id number] for Chuck Galdamez Blood gas, [id number] 12:42:00 Test Item Value Reference Range Interpretation Comments pH, Arterial (test code 7.48 7.35-7.45 H = 2744-1) pCO2, Arterial (test 43 See_Comment [Autom ated message] code = 2019-) The system [facility] generated this result transmit olga reference range : 35 - 45 mm Hg. The reference range was not used to interpret this result as normal/abnormal . pO2, Arterial (test 66 See_Comment L [Automa olga message] code = 2703-7) The system [facility] generated this result transmit olga reference range : 80 - 90 mm Hg. The reference range was not used to interpret this result as normal/abnormal . O2 Sat, Arterial (test 94.2 % 96.0-97.0 L code = 2708-6) HCO3, Arterial (test 32 mmol/L 21-29 H code = 1960-4) Base Excess, Arterial 7.3 mmol/L -2.0-3.0 H (test code = 1925-7) Patient Temperature 37.0 (test code = 8310-5) FIO2 (test code = 1819) 40 Lab Interpretation Abnormal (test code = 94641-0) [facility] [id number] 12:42:00 Test Item Value Reference Range Interpretation Comments pH, Arterial (test code 7.48 7.35-7.45 H = 2744-1) pCO2, Arterial (test 43 See_Comment [Autom ated message] code = 2019-) The system [facility] generated this result transmit olga reference range : 35 - 45 mm Hg. The reference range was not used to interpret this result as normal/abnormal . pO2, Arterial (test 66 See_Comment L [Automa olga message] code = 2703-7) The system [facility] generated this result transmit olga reference range : 80 - 90 mm Hg. The reference range was not used to interpret this result as normal/abnormal . O2 Sat, Arterial (test 94.2 % 96.0-97.0 L code = 2708-6) HCO3, Arterial (test 32 mmol/L 21-29 H code = 1960-4) Base Excess, Arterial 7.3 mmol/L -2.0-3.0 H (test code = 1925-7) Patient Temperature 37.0 (test code = 8310-5) FIO2 (test code = 1819) 40 Lab Interpretation Abnormal (test code = 63985-2) [facility] [id number] 12:42:00 Test Item Value Reference Range Interpretation Comments POC-GLUCOSE METER 110 mg/dL 70-110 : TESTED A T [facility] [address] (BEAKER) (test code [address], = 1538) [facility] [address]: Mobile Home Installer/Techni jatin ID = [id number] for Shona Baker BLOOD GAS, [id number] 12:42:00 Test Item Value Reference Range Interpretation Comments PH ARTERIAL (BEAKER) (test code = 7.48 7.35-7.45 H 383) PCO2 ARTERIAL (BEAKER) (test code 43 mm Hg 35-45 = 384) PO2 ARTERIAL (BEAKER) (test code = 66 mm Hg 80-90 L 385) O2 SATURATION ARTERIAL (BEAKER) 94.2 % 96.0-97.0 L (test code = 386) HCO3 ARTERIAL (BEAKER) (test code 32 mmol/L 21-29 H = 388) BASE EXCESS ARTERIAL (BEAKER) 7.3 mmol/L -2.0-3.0 H (test code = 387) PATIENT TEMPERATURE (BEAKER) (test 37.0 code = 1818) FIO2 (BEAKER) (test code = 1819) 40.0 RAD, CHEST, 1 VIEW, NON [id number] 08:04:00Reason for exam:->hypoxic covidHUNTINGTON [facility]ENTERName: [facility] : 1985 Sex: MFINAL REPORT Chest AP portable semierect Comparison exam: 02/13/2021 History provided: Hypoxic, COVID pneumonia ET tube in good position with tip at the level of the clavicles. NG tip in the stomach. Widespread bilateral airspace opacity of COVID 19 infection shows no change. Signed: Tashi Clayeport Verified Date/Time: 02/14/2021 08:04:30 Reading Location: [facility] Radiology Reading Room [id number] 05:56:00 Test Item Value Reference Range Interpretation Comments MAGNESIUM (BEAKER) (test code = 2.4 mg/dL 1.5-3.0 627) Mobile Home Installer ID - ADMINOperator ID - ADMINOperator ID - ADMINOperator ID - ADMIN BASIC METABOLIC [id number] 05:54:00 Test Item Value Reference Range Interpretation Comments SODIUM (BEAKER) 139 meq/L 135-148 (test code = 381) POTASSIUM (BEAKER) 3.8 meq/L 3.6-5.5 (test code = 379) CHLORIDE (BEAKER) 101 meq/L 98-106 (test code = 382) CO2 (BEAKER) (test 29 meq/L 20-29 code = 355) BLOOD UREA NITROGEN 21 mg/dL 10-26 (BEAKER) (test code = 354) CREATININE (BEAKER) 0.74 mg/dL 0.50-1.20 (test code = 358) GLUCOSE RANDOM 112 mg/dL 70-110 H (BEAKER) (test code = 652) CALCIUM (BEAKER) 8.8 mg/dL 8.5-10.5 (test code = 697) EGFR (BEAKER) (test 122 mL/min/1.73 ESTIM ATED GFR IS code = 1092) sq m NOT ACCURATE CREATININE CLEARANCE IN PREDICTING GLOMERULAR FILTRATION RATE . ESTIMATED GFR I S NOT APPLICABLE FOR DIALYSIS PATIEN TS. Mobile Home Installer ID - ADMINOperator ID - ADMINOperator ID - ADMINOperator ID - ADMINOperator ID - ADMINOperator ID - ADMINOperator ID - ADMINOperator ID - ADMINOperator ID - [id number] 05:53:00 Test Item Value Reference Range Interpretation Comments PHOSPHORUS (BEAKER) (test code = 3.6 mg/dL 2.5-4.5 604) Mobile Home Installer ID - ADMINCBC W/PLT COUNT & AUTO [id number] 05:27:00 Test Item Value Reference Range Interpretation Comments WHITE BLOOD CELL COUNT (BEAKER) 13.6 K/ L 4.0-10.0 H (test code = 775) RED BLOOD CELL COUNT (BEAKER) 4.19 M/ L 4.20-5.80 L (test code = 761) HEMOGLOBIN (BEAKER) (test code = 12.8 GM/DL 13.0-16.8 L 410) HEMATOCRIT (BEAKER) (test code = 37.3 % 36.0-50.0 411) MEAN CORPUSCULAR VOLUME (BEAKER) 89.0 fL 82.0-99.0 (test code = 753) MEAN CORPUSCULAR HEMOGLOBIN 30.5 pg 27.0-33.0 (BEAKER) (test code = 751) MEAN CORPUSCULAR HEMOGLOBIN CONC 34.3 GM/DL 32.0-36.0 (BEAKER) (test code = 752) RED CELL DISTRIBUTION WIDTH 13.1 % 12.0-15.0 (BEAKER) (test code = 412) PLATELET COUNT (BEAKER) (test 263 K/CU MM 150-430 code = 756) MEAN PLATELET VOLUME (BEAKER) 10.2 fL 6.0-11.5 (test code = 754) NUCLEATED RED BLOOD CELLS 0 /100 WBC 0-0 (BEAKER) (test code = 413) NEUTROPHILS RELATIVE PERCENT 86 % (BEAKER) (test code = 429) LYMPHOCYTES RELATIVE PERCENT 8 % (BEAKER) (test code = 430) MONOCYTES RELATIVE PERCENT 6 % (BEAKER) (test code = 431) EOSINOPHILS RELATIVE PERCENT 0 % (BEAKER) (test code = 432) BASOPHILS RELATIVE PERCENT 0 % (BEAKER) (test code = 437) NEUTROPHILS ABSOLUTE COUNT 11.64 K/ L 1.80-8.00 H (BEAKER) (test code = 670) LYMPHOCYTES ABSOLUTE COUNT 1.03 K/ L 1.48-4.50 L (BEAKER) (test code = 414) MONOCYTES ABSOLUTE COUNT (BEAKER) 0.74 K/ L 0.00-1.30 (test code = 415) EOSINOPHILS ABSOLUTE COUNT 0.00 K/ L 0.00-0.50 (BEAKER) (test code = 416) BASOPHILS ABSOLUTE COUNT (BEAKER) 0.02 K/ L 0.00-0.20 (test code = 417) IMMATURE GRANULOCYTES-RELATIVE 1 % 0-0 H PERCENT (BEAKER) (test code = 2801) BLOOD GAS, [id number] 03:21:00 Test Item Value Reference Range Interpretation Comments PH ARTERIAL (BEAKER) (test code = 7.42 7.35-7.45 383) PCO2 ARTERIAL (BEAKER) (test code 50 mm Hg 35-45 H = 384) PO2 ARTERIAL (BEAKER) (test code = 91 mm Hg 80-90 H 385) O2 SATURATION ARTERIAL (BEAKER) 97.0 % 96.0-97.0 (test code = 386) HCO3 ARTERIAL (BEAKER) (test code 32 mmol/L 21-29 H = 388) BASE EXCESS ARTERIAL (BEAKER) 6.4 mmol/L -2.0-3.0 H (test code = 387) PATIENT TEMPERATURE (BEAKER) (test 37.0 code = 1818) FIO2 (BEAKER) (test code = 1819) 50.0 POCT-GLUCOSE [id number] 23:20:00 Test Item Value Reference Range Interpretation Comments POC-GLUCOSE METER 105 mg/dL 70-110 : TESTED A T [facility] [address] (BEAKER) (test code [address], = 1538) [place] [id number]: Mobile Home Installer/Techni jatin ID = [id number] for Amarjit Luis taylorcleopatra POCT-GLUCOSE [id number] 17:50:00 Test Item Value Reference Range Interpretation Comments POC-GLUCOSE METER 122 mg/dL 70-110 H : TESTED A T [facility] (BEAKER) (test code [address], = 1538) [place] [id number]: Mobile Home Installer/Techni jatin ID = [id number] for Tariqbe washingtonLuismendozaShona Blood Culture - Routine (Left Venipuncture)2021-02-13 16:02:00 Test Item Value Reference Range Interpretation Comments Result (test code = No growth in 5 days 6463-4) [facility]2021-02-13 16:02:00 Test Item Value Reference Range Interpretation Comments Result (test code = No growth in 5 days 6463-4) [facility] [id number] 16:02:00 Test Item Value Reference Range Interpretation Comments CULTURE (BEAKER) (test No growth in 5 days code = 1095) BLOOD [id number] 16:02:00 Test Item Value Reference Range Interpretation Comments CULTURE (BEAKER) (test No growth in 5 days code = 1095) POCT-GLUCOSE [id number] 12:23:00 Test Item Value Reference Range Interpretation Comments POC-GLUCOSE METER 125 mg/dL 70-110 H : TESTED A T [facility] [address] (BEAKER) (test code [address], = 1538) [facility] [id number]: Mobile Home Installer/Techni jatin ID = [id number] for Nguy padmini-mendoza, Shona RAD, CHEST, 1 VIEW, NON [id number] 07:42:00Reason for exam:->hypoxic covidHUNTINGTON [facility]Name: FLORENCE BERGER : 1985 Sex: MFINAL REPORT Chest AP portable semierect COMPARISON STUDY: 02/12/2021 History provided: Hypoxic, COVID follow-up Heart size magnified by projection. ET tube remains in good position with tip at the level of the clavicles. NG tip in the stomach. Diffuse bilateral airspace disease of COVID 19 infection shows no change. Signed: Tashi Clay Verified Date/Time: 02/13/2021 07:42:21 Reading Location: [facility] Radiology Reading Room [id number] 06:33:00 Test Item Value Reference Range Interpretation Comments FERRITIN (BEAKER) (test code = 628.50 ng/mL 22.00-322.00 H 361) Mobile Home Installer ID - [id number] 06:14:00 Test Item Value Reference Range Interpretation Comments MAGNESIUM (BEAKER) (test code = 2.4 mg/dL 1.5-3.0 627) Mobile Home Installer ID - LITOOperator ID - LITOOperator ID - LITOOperator ID - LITOBASIC METABOLIC [id number] 06:13:00 Test Item Value Reference Range Interpretation Comments SODIUM (BEAKER) 140 meq/L 135-148 (test code = 381) POTASSIUM (BEAKER) 4.4 meq/L 3.6-5.5 (test code = 379) CHLORIDE (BEAKER) 102 meq/L 98-106 (test code = 382) CO2 (BEAKER) (test 29 meq/L 20-29 code = 355) BLOOD UREA NITROGEN 22 mg/dL 10-26 (BEAKER) (test code = 354) CREATININE (BEAKER) 0.84 mg/dL 0.50-1.20 (test code = 358) GLUCOSE RANDOM 92 mg/dL 70-110 (BEAKER) (test code = 652) CALCIUM (BEAKER) 9.2 mg/dL 8.5-10.5 (test code = 697) EGFR (BEAKER) (test 105 mL/min/1.73 ESTIM ATED GFR IS code = 1092) sq m NOT ACCURATE CREATININE CLEARANCE IN PREDICTING GLOMERULAR FILTRATION RATE . ESTIMATED GFR I S NOT APPLICABLE FOR DIALYSIS PATIEN TS. Mobile Home Installer ID - LITOOperator ID - LITOOperator ID - LITOOperator ID - LITOOperator ID - LITOOperator ID - LITOOperator ID - LITOOperator ID - LITOOperator ID - [id number] 06:11:00 Test Item Value Reference Range Interpretation Comments PHOSPHORUS (BEAKER) (test code = 4.4 mg/dL 2.5-4.5 604) Mobile Home Installer ID - [id number] 06:06:00 Test Item Value Reference Range Interpretation Comments D-DIMER QUANTITATIVE 1.72 MG/L FEU <0.50 H Final Information (BEAKER) (test code = (Auto Output) 673) REGARDING D-DIMER RESULTS: The 98% NPV (Negative Predictive Value) for DVT/PE exclusion is 0.50 mg/LFEU as suggested by the merchandise flow manager and as approved by the FDA.CBC W/PLT COUNT & AUTO [id number] 05:54:00 Test Item Value Reference Range Interpretation Comments WHITE BLOOD CELL COUNT (BEAKER) 16.2 K/ L 4.0-10.0 H (test code = 775) RED BLOOD CELL COUNT (BEAKER) 4.61 M/ L 4.20-5.80 (test code = 761) HEMOGLOBIN (BEAKER) (test code = 14.1 GM/DL 13.0-16.8 410) HEMATOCRIT (BEAKER) (test code = 40.8 % 36.0-50.0 411) MEAN CORPUSCULAR VOLUME (BEAKER) 88.5 fL 82.0-99.0 (test code = 753) MEAN CORPUSCULAR HEMOGLOBIN 30.6 pg 27.0-33.0 (BEAKER) (test code = 751) MEAN CORPUSCULAR HEMOGLOBIN CONC 34.6 GM/DL 32.0-36.0 (BEAKER) (test code = 752) RED CELL DISTRIBUTION WIDTH 13.2 % 12.0-15.0 (BEAKER) (test code = 412) PLATELET COUNT (BEAKER) (test 344 K/CU MM 150-430 code = 756) MEAN PLATELET VOLUME (BEAKER) 10.3 fL 6.0-11.5 (test code = 754) NUCLEATED RED BLOOD CELLS 0 /100 WBC 0-0 (BEAKER) (test code = 413) NEUTROPHILS RELATIVE PERCENT 81 % (BEAKER) (test code = 429) LYMPHOCYTES RELATIVE PERCENT 9 % (BEAKER) (test code = 430) MONOCYTES RELATIVE PERCENT 8 % (BEAKER) (test code = 431) EOSINOPHILS RELATIVE PERCENT 0 % (BEAKER) (test code = 432) BASOPHILS RELATIVE PERCENT 0 % (BEAKER) (test code = 437) NEUTROPHILS ABSOLUTE COUNT 13.19 K/ L 1.80-8.00 H (BEAKER) (test code = 670) LYMPHOCYTES ABSOLUTE COUNT 1.44 K/ L 1.48-4.50 L (BEAKER) (test code = 414) MONOCYTES ABSOLUTE COUNT (BEAKER) 1.37 K/ L 0.00-1.30 H (test code = 415) EOSINOPHILS ABSOLUTE COUNT 0.00 K/ L 0.00-0.50 (BEAKER) (test code = 416) BASOPHILS ABSOLUTE COUNT (BEAKER) 0.03 K/ L 0.00-0.20 (test code = 417) IMMATURE GRANULOCYTES-RELATIVE 1 % 0-0 H PERCENT (BEAKER) (test code = 2801) BLOOD GAS, [id number] 03:36:00 Test Item Value Reference Range Interpretation Comments PH ARTERIAL (BEAKER) (test code = 7.41 7.35-7.45 383) PCO2 ARTERIAL (BEAKER) (test code 50 mm Hg 35-45 H = 384) PO2 ARTERIAL (BEAKER) (test code = 76 mm Hg 80-90 L 385) O2 SATURATION ARTERIAL (BEAKER) 95.1 % 96.0-97.0 L (test code = 386) HCO3 ARTERIAL (BEAKER) (test code 31 mmol/L 21-29 H = 388) BASE EXCESS ARTERIAL (BEAKER) 5.3 mmol/L -2.0-3.0 H (test code = 387) PATIENT TEMPERATURE (BEAKER) (test 37.0 code = 1818) FIO2 (BEAKER) (test code = 1819) 40.0 POCT-GLUCOSE [id number] 23:31:00 Test Item Value Reference Range Interpretation Comments POC-GLUCOSE METER 119 mg/dL 70-110 H : TESTED A T [facility]17 ([facility]) (test code [facility], = 1538) [facility] 77 478: Mobile Home Installer/Techni jatin ID = [id number] for Zave r, Zubeda POCT-GLUCOSE [id number] 17:09:00 Test Item Value Reference Range Interpretation Comments POC-GLUCOSE METER 127 mg/dL 70-110 H : Notified RN/MD: TESTED ([facility]) (test code AT [facility] [address] = 1538) [facility] [address]: Mobile Home Installer/Techni jatin ID = [id number] for Derick lauren Lorita POCT-GLUCOSE [id number] 12:50:00 Test Item Value Reference Range Interpretation Comments POC-GLUCOSE METER 127 mg/dL 70-110 H : Notified RN/MD: TESTED (BEAKER) (test code AT [facility] [address] = 1538) [facility] [address]: Mobile Home Installer/Techni jatin ID = [id number] for Kenisha Mccurdy BLOOD GAS, [id number] 12:31:00 Test Item Value Reference Range Interpretation Comments PH ARTERIAL (BEAKER) (test code = 7.50 7.35-7.45 H 383) PCO2 ARTERIAL (BEAKER) (test code 40 mm Hg 35-45 = 384) PO2 ARTERIAL (BEAKER) (test code = 56 mm Hg 80-90 L 385) O2 SATURATION ARTERIAL (BEAKER) 91.4 % 96.0-97.0 L (test code = 386) HCO3 ARTERIAL (BEAKER) (test code 30 mmol/L 21-29 H = 388) BASE EXCESS ARTERIAL (BEAKER) 6.5 mmol/L -2.0-3.0 H (test code = 387) PATIENT TEMPERATURE (BEAKER) (test 37.0 code = 1818) FIO2 (BEAKER) (test code = 1819) 50.0 RAD, CHEST, 1 VIEW, NON [id number] 07:57:00Reason for exam:->hypoxic covidHUNTINGTON [facility]Name: FLORENCE [facility]ER[facility] : 1985 Sex: MFINAL REPORT Chest AP portable Comparison exam: 02/11/2021 History provided: Hypoxic, COVIDpositive ET tube, NG tube, and right-sided PICC line are unchanged in position. Diffuse bilateral airspace disease of COVID 19 infection shows no significant change. Signed: Tashi Clayeport Verified Date/Time: 02/12/2021 07:57:56 Reading Location: [facility] Radiology Reading Room MAGNESIUM 2021-02-12 05:23:00 Test Item Value Reference Range Interpretation Comments MAGNESIUM (BEAKER) (test code = 2.4 mg/dL 1.5-3.0 627) Mobile Home Installer ID - JUSTINOperator ID - JUSTINOperator ID - JUSTINOperator ID - JESSIE BASIC METABOLIC [id number] 05:22:00 Test Item Value Reference Range Interpretation Comments SODIUM (BEAKER) 140 meq/L 135-148 (test code = 381) POTASSIUM (BEAKER) 3.9 meq/L 3.6-5.5 (test code = 379) CHLORIDE (BEAKER) 106 meq/L 98-106 (test code = 382) CO2 (BEAKER) (test 29 meq/L 20-29 code = 355) BLOOD UREA NITROGEN 13 mg/dL 10-26 (BEAKER) (test code = 354) CREATININE (BEAKER) 0.73 mg/dL 0.50-1.20 (test code = 358) GLUCOSE RANDOM 105 mg/dL 70-110 (BEAKER) (test code = 652) CALCIUM (BEAKER) 8.4 mg/dL 8.5-10.5 L (test code = 697) EGFR (BEAKER) (test 124 mL/min/1.73 ESTIM ATED GFR IS code = 1092) sq m NOT ACCURATE CREATININE CLEARANCE IN PREDICTING GLOMERULAR FILTRATION RATE . ESTIMATED GFR I S NOT APPLICABLE FOR DIALYSIS PATIEN TS. Mobile Home Installer ID - JUSTINOperator ID - JUSTINOperator ID - JUSTINOperator ID - JUSTINOperator ID - JUSTINOperator ID - JUSTINOperator ID - JUSTINOperator ID - JUSTINOperator ID - [id number] 05:21:00 Test Item Value Reference Range Interpretation Comments PHOSPHORUS (BEAKER) (test code = 3.5 mg/dL 2.5-4.5 604) Mobile Home Installer ID - JUSTINCBC W/PLT COUNT & AUTO [id number] 05:08:00 Test Item Value Reference Range Interpretation Comments WHITE BLOOD CELL COUNT (BEAKER) 9.7 K/ L 4.0-10.0 (test code = 775) RED BLOOD CELL COUNT (BEAKER) 3.86 M/ L 4.20-5.80 L (test code = 761) HEMOGLOBIN (BEAKER) (test code = 11.4 GM/DL 13.0-16.8 L 410) HEMATOCRIT (BEAKER) (test code = 34.2 % 36.0-50.0 L 411) MEAN CORPUSCULAR VOLUME (BEAKER) 88.6 fL 82.0-99.0 (test code = 753) MEAN CORPUSCULAR HEMOGLOBIN 29.5 pg 27.0-33.0 (BEAKER) (test code = 751) MEAN CORPUSCULAR HEMOGLOBIN CONC 33.3 GM/DL 32.0-36.0 (BEAKER) (test code = 752) RED CELL DISTRIBUTION WIDTH 12.7 % 12.0-15.0 (BEAKER) (test code = 412) PLATELET COUNT (BEAKER) (test 296 K/CU MM 150-430 code = 756) MEAN PLATELET VOLUME (BEAKER) 10.4 fL 6.0-11.5 (test code = 754) NUCLEATED RED BLOOD CELLS 0 /100 WBC 0-0 (BEAKER) (test code = 413) NEUTROPHILS RELATIVE PERCENT 78 % (BEAKER) (test code = 429) LYMPHOCYTES RELATIVE PERCENT 11 % (BEAKER) (test code = 430) MONOCYTES RELATIVE PERCENT 9 % (BEAKER) (test code = 431) EOSINOPHILS RELATIVE PERCENT 0 % (BEAKER) (test code = 432) BASOPHILS RELATIVE PERCENT 0 % (BEAKER) (test code = 437) NEUTROPHILS ABSOLUTE COUNT 7.58 K/ L 1.80-8.00 (BEAKER) (test code = 670) LYMPHOCYTES ABSOLUTE COUNT 1.10 K/ L 1.48-4.50 L (BEAKER) (test code = 414) MONOCYTES ABSOLUTE COUNT (BEAKER) 0.83 K/ L 0.00-1.30 (test code = 415) EOSINOPHILS ABSOLUTE COUNT 0.01 K/ L 0.00-0.50 (BEAKER) (test code = 416) BASOPHILS ABSOLUTE COUNT (BEAKER) 0.01 K/ L 0.00-0.20 (test code = 417) IMMATURE GRANULOCYTES-RELATIVE 2 % 0-0 H PERCENT (BEAKER) (test code = 8421) BLOOD GAS, [id number] 03:48:00 Test Item Value Reference Range Interpretation Comments PH ARTERIAL (BEAKER) (test code = 7.40 7.35-7.45 383) PCO2 ARTERIAL (BEAKER) (test code 52 mm Hg 35-45 H = 384) PO2 ARTERIAL (BEAKER) (test code = 98 mm Hg 80-90 H 385) O2 SATURATION ARTERIAL (BEAKER) 97.3 % 96.0-97.0 H (test code = 386) HCO3 ARTERIAL (BEAKER) (test code 32 mmol/L 21-29 H = 388) BASE EXCESS ARTERIAL (BEAKER) 5.4 mmol/L -2.0-3.0 H (test code = 387) PATIENT TEMPERATURE (BEAKER) (test 37.0 code = 1818) FIO2 (BEAKER) (test code = 1819) 50.0 POCT-GLUCOSE [id number] 00:21:00 Test Item Value Reference Range Interpretation Comments POC-GLUCOSE METER 107 mg/dL 70-110 : Notified RN/MD: TESTED (BEAKER) (test code AT [place] [address] [address] = 1538) [facility] [address]: Mobile Home Installer/Techni jatin ID = [id number] for Ashley Thornton Vancomycin level, [id number] 21:38:00 Test Item Value Reference Range Interpretation Comments Vancomycin Tr (test code = 8.9 ug/mL 10.0-20.0 L 4092-3) PENNY (test code = PENNY) Mobile Home Installer ID - JESSIE Lab Interpretation (test Abnormal code = 85069-8) [facility] Center[facility]com[facility], [id number] 21:38:00 Test Item Value Reference Range Interpretation Comments Vancomycin Tr (test code = 8.9 ug/mL 10.0-20.0 L 4092-3) PENNY (test code = PENNY) Mobile Home Installer ID - JESSIE Lab Interpretation (test Abnormal code = 79839-8) [facility] CenterVANCOMYCIN LEVEL, [id number] 21:38:00 Test Item Value Reference Range Interpretation Comments VANCOMYCIN TROUGH (BEAKER) (test 8.9 ug/mL 10.0-20.0 L code = 522) Mobile Home Installer ID - JUSTINPOCT-GLUCOSE [id number] 17:57:00 Test Item Value Reference Range Interpretation Comments POC-GLUCOSE METER 103 mg/dL 70-110 : TESTED A T [facility] [address] (BEAKER) (test code [address], = 1538) [facility] 77 478: Mobile Home Installer/Techni jatin ID = [id number] for Ali, Fransisca BLOOD GAS, [id number] 13:35:00 Test Item Value Reference Range Interpretation Comments PH ARTERIAL (BEAKER) (test code = 7.39 7.35-7.45 383) PCO2 ARTERIAL (BEAKER) (test code 48 mm Hg 35-45 H = 384) PO2 ARTERIAL (BEAKER) (test code = 76 mm Hg 80-90 L 385) O2 SATURATION ARTERIAL (BEAKER) 95.0 % 96.0-97.0 L (test code = 386) HCO3 ARTERIAL (BEAKER) (test code 29 mmol/L 21-29 = 388) BASE EXCESS ARTERIAL (BEAKER) 2.8 mmol/L -2.0-3.0 (test code = 387) PATIENT TEMPERATURE (BEAKER) (test 37.0 code = 1818) FIO2 (BEAKER) (test code = 1819) 50.0 SPUTUM CULTURE + GRAM [id number] 13:24:00 Test Item Value Reference Interpretation Comments Range CULTURE (BEAKER) STAPHYLOCOCCUS A 4+ Staphy lococcus (test code = 1095) AUREUS aureus Ciprofloxacin (test S code = 7) Clindamycin (test R code = 10) Daptomycin (test code S = 59) Erythromycin (test R code = 4) Gentamicin (test code S = 18) Levofloxacin (test S code = 22) Linezolid (test code S = 40) Moxifloxacin (test S code = 36) Nitrofurantoin (test S code = 23) Oxacillin (test code S = 14) Rifampin (test code = S 43) Tetracycline (test S code = 2) Tigecycline (test S code = 133) Trimethoprim + S Sulfamethoxazole (test code = 47) Vancomycin (test code S = 13) GRAM STAIN RESULT 2+ White blood (BEAKER) (test code = cells seen 1123) GRAM STAIN RESULT <1+ epithelial (BEAKER) (test code = cells 676485) GRAM STAIN RESULT <1+ gram positive (BEAKER) (test code = cocci 345680) MRSA [id number] 13:21:00 Test Item Value Reference Range Interpretation Comments Result (test code = 6463-4) No MRSA isolated [facility] CenterMRSA [id number] 13:21:00 Test Item Value Reference Range Interpretation Comments Result (test code = 6463-4) No MRSA isolated [facility] CenterMRSA [id number] 13:21:00 Test Item Value Reference Range Interpretation Comments CULTURE (LINUS) (test code No MRSA isolated = 1095) POCT-GLUCOSE [id number] 11:51:00 Test Item Value Reference Range Interpretation Comments POC-GLUCOSE METER 126 mg/dL 70-110 H : TESTED A T [facility] [address] (BESUKUMAR) (test code [address], = 1538) [facility] 77 478: Mobile Home Installer/Techni jatin ID = [id number] for Ali, Fransisca RAD, CHEST, 1 VIEW, NON [id number] 10:38:00Reason for exam:->hypoxic covidHUNTINGTON BEACH [facility]ENTERName: FOLRENCE BERGER : 1985 Sex: MFINAL REPORT X-ray chest AP portable COMPARISON: One day prior HISTORY: hypoxic covid FINDINGS:Technical adequacy: AP portable upright with significant patient rotationDevices: Stable appearance. No change in endotracheal tube, nasogastric tube, right arm PICC line with the tip overlying right atrium. The endotracheal tube is only 1 cm from the melanie. It should be retracted approximately 3cm at least.Central airways: Stable appearanceHeart: Stable appearanceGreat vessels: Stable appearanceLungs: Stable appearance of bilateral diffuse airspace opacitiesMediastinum: Stable appearancePleura: UnremarkableSkeletal structures: Stable appearanceExtrathoracic soft tissues: Stable appearanceAdditional comments: Impression: Stable appearance of life support devices and cardiopulmonary findings.Please retract the endotracheal approximately 3 cm Signed: Tae Ga Verified Date/Time: 02/11/2021 10:38:37 Reading Location: [facility] Radiology Reading Room FERRITIN 2021-02-11 05:44:00 Test Item Value Reference Range Interpretation Comments FERRITIN (BEAKER) (test code = 536.70 ng/mL 22.00-322.00 H 361) Mobile Home Installer ID - [id number] 05:33:00 Test Item Value Reference Range Interpretation Comments MAGNESIUM (BEAKER) (test code = 2.5 mg/dL 1.5-3.0 627) Mobile Home Installer ID - LITOOperator ID - LITOOperator ID - LITOOperator ID - LITOBASIC METABOLIC [id number] 05:32:00 Test Item Value Reference Range Interpretation Comments SODIUM (BEAKER) 143 meq/L 135-148 (test code = 381) POTASSIUM (BEAKER) 4.0 meq/L 3.6-5.5 (test code = 379) CHLORIDE (BEAKER) 106 meq/L 98-106 (test code = 382) CO2 (BEAKER) (test 30 meq/L 20-29 H code = 355) BLOOD UREA NITROGEN 13 mg/dL 10-26 (BEAKER) (test code = 354) CREATININE (BEAKER) 0.78 mg/dL 0.50-1.20 (test code = 358) GLUCOSE RANDOM 108 mg/dL 70-110 (BEAKER) (test code = 652) CALCIUM (BEAKER) 8.4 mg/dL 8.5-10.5 L (test code = 697) EGFR (BEAKER) (test 115 mL/min/1.73 ESTIM ATED GFR IS code = 1092) sq m NOT ACCURATE CREATININE CLEARANCE IN PREDICTING GLOMERULAR FILTRATION RATE . ESTIMATED GFR I S NOT APPLICABLE FOR DIALYSIS PATIEN TS. Mobile Home Installer ID - LITOOperator ID - LITOOperator ID - LITOOperator ID - LITOOperator ID - LITOOperator ID - LITOOperator ID - LITOOperator ID - LITOOperator ID - [id number] 05:31:00 Test Item Value Reference Range Interpretation Comments PHOSPHORUS (BEAKER) (test code = 3.1 mg/dL 2.5-4.5 604) Mobile Home Installer ID - [id number] 05:23:00 Test Item Value Reference Range Interpretation Comments D-DIMER QUANTITATIVE 1.21 MG/L FEU <0.50 H Final Information (BEAKER) (test code = (Auto Output) 671) REGARDING D-DIMER RESULTS: The 98% NPV (Negative Predictive Value) for DVT/PE exclusion is 0.50 mg/LFEU as suggested by the merchandise flow manager and as approved by the FDA.CBC W/PLT COUNT & AUTO [id number] 05:18:00 Test Item Value Reference Range Interpretation Comments WHITE BLOOD CELL COUNT (BEAKER) 10.8 K/ L 4.0-10.0 H (test code = 775) RED BLOOD CELL COUNT (BEAKER) 3.77 M/ L 4.20-5.80 L (test code = 761) HEMOGLOBIN (BEAKER) (test code = 11.2 GM/DL 13.0-16.8 L 410) HEMATOCRIT (BEAKER) (test code = 33.3 % 36.0-50.0 L 411) MEAN CORPUSCULAR VOLUME (BEAKER) 88.3 fL 82.0-99.0 (test code = 753) MEAN CORPUSCULAR HEMOGLOBIN 29.7 pg 27.0-33.0 (BEAKER) (test code = 751) MEAN CORPUSCULAR HEMOGLOBIN CONC 33.6 GM/DL 32.0-36.0 (BEAKER) (test code = 752) RED CELL DISTRIBUTION WIDTH 12.4 % 12.0-15.0 (BEAKER) (test code = 412) PLATELET COUNT (BEAKER) (test 290 K/CU MM 150-430 code = 756) MEAN PLATELET VOLUME (BEAKER) 10.7 fL 6.0-11.5 (test code = 754) NUCLEATED RED BLOOD CELLS 0 /100 WBC 0-0 (BEAKER) (test code = 413) NEUTROPHILS RELATIVE PERCENT 83 % (BEAKER) (test code = 429) LYMPHOCYTES RELATIVE PERCENT 8 % (BEAKER) (test code = 430) MONOCYTES RELATIVE PERCENT 6 % (BEAKER) (test code = 431) EOSINOPHILS RELATIVE PERCENT 0 % (BEAKER) (test code = 432) BASOPHILS RELATIVE PERCENT 0 % (BEAKER) (test code = 437) NEUTROPHILS ABSOLUTE COUNT 8.94 K/ L 1.80-8.00 H (BEAKER) (test code = 670) LYMPHOCYTES ABSOLUTE COUNT 0.90 K/ L 1.48-4.50 L (BEAKER) (test code = 414) MONOCYTES ABSOLUTE COUNT (BEAKER) 0.69 K/ L 0.00-1.30 (test code = 415) EOSINOPHILS ABSOLUTE COUNT 0.00 K/ L 0.00-0.50 (BEAKER) (test code = 416) BASOPHILS ABSOLUTE COUNT (BEAKER) 0.01 K/ L 0.00-0.20 (test code = 417) IMMATURE GRANULOCYTES-RELATIVE 2 % 0-0 H PERCENT (BEAKER) (test code = 2801) BLOOD GAS, [id number] 03:38:00 Test Item Value Reference Range Interpretation Comments PH ARTERIAL (BEAKER) (test code = 7.46 7.35-7.45 H 383) PCO2 ARTERIAL (BEAKER) (test code 47 mm Hg 35-45 H = 384) PO2 ARTERIAL (BEAKER) (test code = 89 mm Hg 80-90 385) O2 SATURATION ARTERIAL (BEAKER) 97.1 % 96.0-97.0 H (test code = 386) HCO3 ARTERIAL (BEAKER) (test code 32 mmol/L 21-29 H = 388) BASE EXCESS ARTERIAL (BEAKER) 7.3 mmol/L -2.0-3.0 H (test code = 387) PATIENT TEMPERATURE (BEAKER) (test 37.0 code = 1818) FIO2 (BEAKER) (test code = 1819) 50.0 POCT-GLUCOSE [id number] 00:43:00 Test Item Value Reference Range Interpretation Comments POC-GLUCOSE METER 124 mg/dL 70-110 H : TESTED A T [facility] [address] (BEAKER) (test code [address], = 1538) [facility] 77 [address]: Mobile Home Installer/Techni jatin ID = [id number] for Cindy bayronShonau POCT-GLUCOSE [id number] 17:25:00 Test Item Value Reference Range Interpretation Comments POC-GLUCOSE METER 101 mg/dL 70-110 : TESTED A T [facility] [address] (BEAKER) (test code [address], = 1538) [facility] 77 478: Mobile Home Installer/Techni jatin ID = [id number] for Donavan Arce POCT-GLUCOSE [id number] 12:23:00 Test Item Value Reference Range Interpretation Comments POC-GLUCOSE METER 118 mg/dL 70-110 H : TESTED A T [facility] [address] (BEAKER) (test code [address], = 1538) [place] [address]: Mobile Home Installer/Techni jatin ID = [id number] for Fransisca Toro [id number] 09:43:00 Test Item Value Reference Range Interpretation Comments Procalcitonin (test <0.05 See_Comment [Automa olga code = 58739-9) message] The system which generated this result transmit olga reference range : <0.05 ng/mL. Th e reference range was not used to interpret this result as normal/abnormal . PENNY (test code = PENNY) SEPSIS RISK (ng/mL)Low: 0.05-0.50Inter mediate: 0.51-2.00High: >=2.01 Lab Interpretation Normal (test code = 65161-3) [facility] C[id number] 09:43:00 Test Item Value Reference Range Interpretation Comments Procalcitonin (test <0.05 See_Comment [Automa olga code = 88273-2) message] The system which generated this result transmit olga reference range : <0.05 ng/mL. Th e reference range was not used to interpret this result as normal/abnormal . PENNY (test code = PENNY) SEPSIS RISK (ng/mL)Low: 0.05-0.50Inter mediate: 0.51-2.00High: >=2.01 Lab Interpretation Normal (test code = 29224-1) [facility] [id number] 09:43:00 Test Item Value Reference Range Interpretation Comments PROCALCITONIN (BEAKER) (test code = < ng/mL <0.05 3036) SEPSIS RISK (ng/mL)Low: 0.05-0.50Intermediate: 0.51-2.00High: >=2.01 VANCOMYCIN LEVEL, [id number] 06:10:00 Test Item Value Reference Range Interpretation Comments VANCOMYCIN TROUGH (BEAKER) (test 24.2 ug/mL 10.0-20.0 H code = 522) Mobile Home Installer ID - [id number], CHEST, 1 VIEW, NON [id number] 05:52:00Reason for exam:->hypoxic covid [facility] : 1985 Sex: MFINAL REPORT RAD, CHEST, 1 VIEW, NON DEPT INDICATION: hypoxic covid COMPARISON: Prior day's exam FINDINGS: Portable frontal view of the chest. IMPRESSION: Support Lines: Stable. Lungs and pleura: Hypoinflated lungs with unchanged bilateral consolidative opacities consistent with pneumonia. No pneumothorax.Heart and mediastinum: Stable contours.Additional findings: None. Signed: Rosalind AlexanderMDReport Verified Date/Time: 02/10/2021 05:52:17 MAGNESIUM 2021-02-10 05:29:00 Test Item Value Reference Range Interpretation Comments MAGNESIUM (BEAKER) (test code = 2.5 mg/dL 1.5-3.0 627) Mobile Home Installer ID - SCSW68Sshfhnup ID - [id number] ID - [id number] ID - [id number] BASIC METABOLIC [id number] 05:28:00 Test Item Value Reference Range Interpretation Comments SODIUM (BEAKER) 140 meq/L 135-148 (test code = 381) POTASSIUM (BEAKER) 4.0 meq/L 3.6-5.5 (test code = 379) CHLORIDE (BEAKER) 103 meq/L 98-106 (test code = 382) CO2 (BEAKER) (test 33 meq/L 20-29 H code = 355) BLOOD UREA NITROGEN 16 mg/dL 10-26 (BEAKER) (test code = 354) CREATININE (BEAKER) 0.73 mg/dL 0.50-1.20 (test code = 358) GLUCOSE RANDOM 100 mg/dL 70-110 (BEAKER) (test code = 652) CALCIUM (BEAKER) 8.3 mg/dL 8.5-10.5 L (test code = 697) EGFR (BEAKER) (test 124 mL/min/1.73 ESTIM ATED GFR IS code = 1092) sq m NOT ACCURATE CREATININE CLEARANCE IN PREDICTING GLOMERULAR FILTRATION RATE . ESTIMATED GFR I S NOT APPLICABLE FOR DIALYSIS PATIEN TS. Mobile Home Installer ID - [id number] ID - [id number] ID - [id number] ID - [id number] ID - [id number] ID - [id number] ID - [id number] ID - [id number] ID - [id number] 05:26:00 Test Item Value Reference Range Interpretation Comments PHOSPHORUS (BEAKER) (test code = 3.6 mg/dL 2.5-4.5 604) Mobile Home Installer ID - [id number] W/PLT COUNT & AUTO [id number] 05:08:00 Test Item Value Reference Range Interpretation Comments WHITE BLOOD CELL COUNT (BEAKER) 12.1 K/ L 4.0-10.0 H (test code = 775) RED BLOOD CELL COUNT (BEAKER) 3.88 M/ L 4.20-5.80 L (test code = 761) HEMOGLOBIN (BEAKER) (test code = 11.6 GM/DL 13.0-16.8 L 410) HEMATOCRIT (BEAKER) (test code = 33.7 % 36.0-50.0 L 411) MEAN CORPUSCULAR VOLUME (BEAKER) 86.9 fL 82.0-99.0 (test code = 753) MEAN CORPUSCULAR HEMOGLOBIN 29.9 pg 27.0-33.0 (BEAKER) (test code = 751) MEAN CORPUSCULAR HEMOGLOBIN CONC 34.4 GM/DL 32.0-36.0 (BEAKER) (test code = 752) RED CELL DISTRIBUTION WIDTH 12.1 % 12.0-15.0 (BEAKER) (test code = 412) PLATELET COUNT (BEAKER) (test 281 K/CU MM 150-430 code = 756) MEAN PLATELET VOLUME (BEAKER) 10.4 fL 6.0-11.5 (test code = 754) NUCLEATED RED BLOOD CELLS 0 /100 WBC 0-0 (BEAKER) (test code = 413) NEUTROPHILS RELATIVE PERCENT 81 % (BEAKER) (test code = 429) LYMPHOCYTES RELATIVE PERCENT 9 % (BEAKER) (test code = 430) MONOCYTES RELATIVE PERCENT 8 % (BEAKER) (test code = 431) EOSINOPHILS RELATIVE PERCENT 0 % (BEAKER) (test code = 432) BASOPHILS RELATIVE PERCENT 0 % (BEAKER) (test code = 437) NEUTROPHILS ABSOLUTE COUNT 9.77 K/ L 1.80-8.00 H (BEAKER) (test code = 670) LYMPHOCYTES ABSOLUTE COUNT 1.03 K/ L 1.48-4.50 L (BEAKER) (test code = 414) MONOCYTES ABSOLUTE COUNT (BEAKER) 1.02 K/ L 0.00-1.30 (test code = 415) EOSINOPHILS ABSOLUTE COUNT 0.00 K/ L 0.00-0.50 (BEAKER) (test code = 416) BASOPHILS ABSOLUTE COUNT (BEAKER) 0.01 K/ L 0.00-0.20 (test code = 417) IMMATURE GRANULOCYTES-RELATIVE 2 % 0-0 H PERCENT (BEAKER) (test code = 2801) BLOOD GAS, [id number] 03:33:00 Test Item Value Reference Range Interpretation Comments PH ARTERIAL (BEAKER) (test code = 7.43 7.35-7.45 383) PCO2 ARTERIAL (BEAKER) (test code 54 mm Hg 35-45 H = 384) PO2 ARTERIAL (BEAKER) (test code = 91 mm Hg 80-90 H 385) O2 SATURATION ARTERIAL (BEAKER) 97.1 % 96.0-97.0 H (test code = 386) HCO3 ARTERIAL (BEAKER) (test code 35 mmol/L 21-29 H = 388) BASE EXCESS ARTERIAL (BEAKER) 9.2 mmol/L -2.0-3.0 H (test code = 387) PATIENT TEMPERATURE (BEAKER) (test 37.0 code = 1818) FIO2 (BEAKER) (test code = 1819) 60.0 POCT-GLUCOSE [id number] 00:18:00 Test Item Value Reference Range Interpretation Comments POC-GLUCOSE METER 128 mg/dL 70-110 H : Notified RN/MD: TESTED ([facility]) (test code AT [facility] [address] = 1538) [place] [address]: Mobile Home Installer/Techni jatin ID = [id number] for Prov ost, Ashley POCT-GLUCOSE [id number] 17:40:00 Test Item Value Reference Range Interpretation Comments POC-GLUCOSE METER 109 mg/dL 70-110 : Notified RN/MD: TESTED ([facility] (test code AT [facility] [address] = 1538) [place] [address]: Mobile Home Installer/Techni jatin ID = [id number] for Derick h, Lorita POCT-GLUCOSE [id number] 12:38:00 Test Item Value Reference Range Interpretation Comments POC-GLUCOSE METER 113 mg/dL 70-110 H : Notified RN/MD: TESTED ([facility]) (test code AT [facility] [address] = 1538) [place] [address]: Mobile Home Installer/Techni jatin ID = [id number] for Derick h, Lorita [id number] 06:00:00 Test Item Value Reference Range Interpretation Comments FERRITIN ([facility]) (test code = 633.00 ng/mL 22.00-322.00 H 361) Mobile Home Installer ID - RESORIANRAD, CHEST, 1 VIEW, NON [id number] 05:54:00Reason for exam:->hypoxic covid [facility] : 1985 Sex: MFINAL REPORT RAD, CHEST, 1 VIEW, NON DEPT INDICATION: hypoxic covid COMPARISON: Prior day's exam FINDINGS: Portable frontal view of the chest. IMPRESSION: Support Lines: PICC tip overlies the atriocaval junction. ET tube tip is 5 cm superior to the melanie. NG tube descends below the diaphragm Lungs and pleura: Scattered hazy bilateral airspace opacities, compatible with known pneumonia, not significantly changed compared to prior exam. No pneumothorax.Heart and mediastinum: Stable contours.Additional findings: None. Signed: Yessica Staton Verified Date/Time: 02/09/2021 05:54:37 , ABDOMEN/KUB 1 VIEW [id number] 05:51:00Reason for exam:->[facility]us [facility] : 1985 Sex: MFINAL REPORT RAD, ABDOMEN/KUB 1 VIEW AP CLINICAL INDICATION: Ileus COMPARISON: None TECHNIQUE: Single, frontal radiograph of the abdomen. FINDINGS: The bowel gas pattern is nonspecific, but nonobstructive. There is gaseous distention of the colon without lolis dilatation. NG side-port overlies the stomach Evaluation for free air is limited by portable supine technique. Within these limitations, no free air is identified. Signed: Yessica Staton Verified Date/Time: 02/09/2021 05:51:06 [id number] 05:35:00 Test Item Value Reference Range Interpretation Comments MAGNESIUM (BEAKER) (test code = 2.6 mg/dL 1.5-3.0 627) Mobile Home Installer ID - [id number] ID - [id number] ID - [id number] ID - [id number] BASIC METABOLIC [id number] 05:34:00 Test Item Value Reference Range Interpretation Comments SODIUM (BEAKER) 140 meq/L 135-148 (test code = 381) POTASSIUM (BEAKER) 5.1 meq/L 3.6-5.5 (test code = 379) CHLORIDE (BEAKER) 104 meq/L 98-106 (test code = 382) CO2 (BEAKER) (test 30 meq/L 20-29 H code = 355) BLOOD UREA NITROGEN 17 mg/dL 10-26 (BEAKER) (test code = 354) CREATININE (BEAKER) 0.74 mg/dL 0.50-1.20 (test code = 358) GLUCOSE RANDOM 110 mg/dL 70-110 (BEAKER) (test code = 652) CALCIUM (BEAKER) 8.6 mg/dL 8.5-10.5 (test code = 697) EGFR (BEAKER) (test 122 mL/min/1.73 ESTIM ATED GFR IS code = 1092) sq m NOT ACCURATE CREATININE CLEARANCE IN PREDICTING GLOMERULAR FILTRATION RATE . ESTIMATED GFR I S NOT APPLICABLE FOR DIALYSIS PATIEN TS. Mobile Home Installer ID - [id number] ID - [id number] ID - [id number] ID - [id number] ID - [id number] ID - [id number] ID - [id number] ID - [id number] ID - [id number] 05:32:00 Test Item Value Reference Range Interpretation Comments PHOSPHORUS (BEAKER) (test code = 4.3 mg/dL 2.5-4.5 604) Mobile Home Installer ID - [id number] 05:25:00 Test Item Value Reference Range Interpretation Comments D-DIMER QUANTITATIVE 0.85 MG/L FEU <0.50 H Final Information (BEAKER) (test code = (Auto Output) 671) REGARDING D-DIMER RESULTS: The 98% NPV (Negative Predictive Value) for DVT/PE exclusion is 0.50 mg/LFEU as suggested by the merchandise flow manager and as approved by the FDA.CBC W/PLT COUNT & AUTO [id number] 05:18:00 Test Item Value Reference Range Interpretation Comments WHITE BLOOD CELL COUNT (BEAKER) 21.5 K/ L 4.0-10.0 H (test code = 775) RED BLOOD CELL COUNT (BEAKER) 4.40 M/ L 4.20-5.80 (test code = 761) HEMOGLOBIN (BEAKER) (test code = 13.3 GM/DL 13.0-16.8 410) HEMATOCRIT (BEAKER) (test code = 38.2 % 36.0-50.0 411) MEAN CORPUSCULAR VOLUME (BEAKER) 86.8 fL 82.0-99.0 (test code = 753) MEAN CORPUSCULAR HEMOGLOBIN 30.2 pg 27.0-33.0 (BEAKER) (test code = 751) MEAN CORPUSCULAR HEMOGLOBIN CONC 34.8 GM/DL 32.0-36.0 (BEAKER) (test code = 752) RED CELL DISTRIBUTION WIDTH 11.9 % 12.0-15.0 L (BEAKER) (test code = 412) PLATELET COUNT (BEAKER) (test 340 K/CU MM 150-430 code = 756) MEAN PLATELET VOLUME (BEAKER) 10.3 fL 6.0-11.5 (test code = 754) NUCLEATED RED BLOOD CELLS 0 /100 WBC 0-0 (BEAKER) (test code = 413) NEUTROPHILS RELATIVE PERCENT 92 % (BEAKER) (test code = 429) LYMPHOCYTES RELATIVE PERCENT 3 % (BEAKER) (test code = 430) MONOCYTES RELATIVE PERCENT 3 % (BEAKER) (test code = 431) EOSINOPHILS RELATIVE PERCENT 0 % (BEAKER) (test code = 432) BASOPHILS RELATIVE PERCENT 0 % (BEAKER) (test code = 437) NEUTROPHILS ABSOLUTE COUNT 19.78 K/ L 1.80-8.00 H (BEAKER) (test code = 670) LYMPHOCYTES ABSOLUTE COUNT 0.71 K/ L 1.48-4.50 L (BEAKER) (test code = 414) MONOCYTES ABSOLUTE COUNT (BEAKER) 0.71 K/ L 0.00-1.30 (test code = 415) EOSINOPHILS ABSOLUTE COUNT 0.00 K/ L 0.00-0.50 (BEAKER) (test code = 416) BASOPHILS ABSOLUTE COUNT (BEAKER) 0.02 K/ L 0.00-0.20 (test code = 417) IMMATURE GRANULOCYTES-RELATIVE 1 % 0-0 H PERCENT (BEAKER) (test code = 2801) BLOOD GAS, [id number] 03:44:00 Test Item Value Reference Range Interpretation Comments PH ARTERIAL (BEAKER) (test code = 7.40 7.35-7.45 383) PCO2 ARTERIAL (BEAKER) (test code 48 mm Hg 35-45 H = 384) PO2 ARTERIAL (BEAKER) (test code = 104 mm Hg 80-90 H 385) O2 SATURATION ARTERIAL (BEAKER) 97.7 % 96.0-97.0 H (test code = 386) HCO3 ARTERIAL (BEAKER) (test code 29 mmol/L 21-29 = 388) BASE EXCESS ARTERIAL (BEAKER) 3.2 mmol/L -2.0-3.0 H (test code = 387) PATIENT TEMPERATURE (BEAKER) (test 37.0 code = 1818) FIO2 (BEAKER) (test code = 1819) 70.0 POCT-GLUCOSE [id number] 00:15:00 Test Item Value Reference Range Interpretation Comments POC-GLUCOSE METER 101 mg/dL 70-110 : TESTED A T [facility] [address] (BEAKER) (test code [facility], = 1538) [place] [id number]: Mobile Home Installer/Techni jatin ID = [id number] for Donavan Arce POCT-GLUCOSE [id number] 17:51:00 Test Item Value Reference Range Interpretation Comments POC-GLUCOSE METER 105 mg/dL 70-110 : TESTED A T [facility] [address] (BEAKER) (test code [facility], = 1538) [place] [id number]: Mobile Home Installer/Techni jatin ID = [id number] for Mukund Lacy POCT-GLUCOSE [id number] 11:48:00 Test Item Value Reference Range Interpretation Comments POC-GLUCOSE METER 126 mg/dL 70-110 H : Notified RN/MD: TESTED (BEAKER) (test code AT [facility] [address] = 1538) [address], [facility] [address]: Mobile Home Installer/Techni jatin ID = [id number] for Derick Kenisha aguilar RAD, CHEST, 1 VIEW, NON [id number] 07:10:00Reason for exam:->[facility]id[facility]OR[facility] : 1985 Sex: MFINAL REPORT RAD, CHEST, 1 VIEW, NON DEPT INDICATION: hypoxic covid COMPARISON: Prior day's exam FINDINGS: Portable frontal view of the chest. IMPRESSION: Support Lines: ET tube tip is 5 cm superior to the melanie. NG tube descends below the diaphragm. PICC tip overlies the right atrium Lungsand pleura: Bilateral lower lobe airspace disease, not significantly changed from prior No pneumothorax.Heart and mediastinum: Stable contours.Additional findings: None. Signed: Yessica Staton MDReport Verified Date/Time: 02/08/2021 07:10:30 RAD, ABDOMEN/KUB 1 VIEW [id number] 07:07:00Reason for exam:->f/u ileus[facility] FLORENEC [facility]ER[facility] : 1985 Sex: MFINAL REPORT RAD, ABDOMEN/KUB 1 VIEW AP INDICATION: f/u ileus COMPARISON: None TECHNIQUE: Limited portable radiograph of the lower chest and upper abdomen was acquired for purposes of evaluating tube placement FINDINGS/IMPRESSION:NG side port overlies the stomach area Bowel gas pattern is nonspecific and nonobstructive. Nondilated gas-filled loops of colon are present within the lower quadrants. Small bowel is either decompressed or fluid-filled. Signed: Yessica Staton MDReport Verified Date/Time: 02/08/2021 07:07:29 [id number] 04:28:00 Test Item Value Reference Range Interpretation Comments MAGNESIUM (BEAKER) (test code = 2.4 mg/dL 1.5-3.0 627) Mobile Home Installer ID - [id number] ID - [id number] ID - [id number] ID - [id number] BASIC METABOLIC [id number] 04:27:00 Test Item Value Reference Range Interpretation Comments SODIUM (BEAKER) 138 meq/L 135-148 (test code = 381) POTASSIUM (BEAKER) 4.7 meq/L 3.6-5.5 (test code = 379) CHLORIDE (BEAKER) 99 meq/L 98-106 (test code = 382) CO2 (BEAKER) (test 28 meq/L 20-29 code = 355) BLOOD UREA NITROGEN 26 mg/dL 10-26 (BEAKER) (test code = 354) CREATININE (BEAKER) 0.80 mg/dL 0.50-1.20 (test code = 358) GLUCOSE RANDOM 90 mg/dL 70-110 (BEAKER) (test code = 652) CALCIUM (BEAKER) 8.7 mg/dL 8.5-10.5 (test code = 697) EGFR (BEAKER) (test 111 mL/min/1.73 ESTIM ATED GFR IS code = 1092) sq m NOT ACCURATE CREATININE CLEARANCE IN PREDICTING GLOMERULAR FILTRATION RATE . ESTIMATED GFR I S NOT APPLICABLE FOR DIALYSIS PATIEN TS. Mobile Home Installer ID - [id number] ID - [id number] ID - [id number] ID - [id number] ID - [id number] ID - [id number] ID - [id number] ID - VHAJ88Cfzdzlum ID - [id number] 04:26:00 Test Item Value Reference Range Interpretation Comments PHOSPHORUS (BEAKER) (test code = 3.6 mg/dL 2.5-4.5 604) Mobile Home Installer ID - [id number] W/PLT COUNT & AUTO [id number] 04:09:00 Test Item Value Reference Range Interpretation Comments WHITE BLOOD CELL COUNT (BEAKER) 21.6 K/ L 4.0-10.0 H (test code = 775) RED BLOOD CELL COUNT (BEAKER) 4.80 M/ L 4.20-5.80 (test code = 761) HEMOGLOBIN (BEAKER) (test code = 14.2 GM/DL 13.0-16.8 410) HEMATOCRIT (BEAKER) (test code = 41.2 % 36.0-50.0 411) MEAN CORPUSCULAR VOLUME (BEAKER) 85.8 fL 82.0-99.0 (test code = 753) MEAN CORPUSCULAR HEMOGLOBIN 29.6 pg 27.0-33.0 (BEAKER) (test code = 751) MEAN CORPUSCULAR HEMOGLOBIN CONC 34.5 GM/DL 32.0-36.0 (BEAKER) (test code = 752) RED CELL DISTRIBUTION WIDTH 11.7 % 12.0-15.0 L (BEAKER) (test code = 412) PLATELET COUNT (BEAKER) (test 441 K/CU MM 150-430 H code = 756) MEAN PLATELET VOLUME (BEAKER) 10.2 fL 6.0-11.5 (test code = 754) NUCLEATED RED BLOOD CELLS 0 /100 WBC 0-0 (BEAKER) (test code = 413) NEUTROPHILS RELATIVE PERCENT 88 % (BEAKER) (test code = 429) LYMPHOCYTES RELATIVE PERCENT 5 % (BEAKER) (test code = 430) MONOCYTES RELATIVE PERCENT 5 % (BEAKER) (test code = 431) EOSINOPHILS RELATIVE PERCENT 0 % (BEAKER) (test code = 432) BASOPHILS RELATIVE PERCENT 0 % (BEAKER) (test code = 437) NEUTROPHILS ABSOLUTE COUNT 19.08 K/ L 1.80-8.00 H (BEAKER) (test code = 670) LYMPHOCYTES ABSOLUTE COUNT 0.98 K/ L 1.48-4.50 L (BEAKER) (test code = 414) MONOCYTES ABSOLUTE COUNT (BEAKER) 1.03 K/ L 0.00-1.30 (test code = 415) EOSINOPHILS ABSOLUTE COUNT 0.00 K/ L 0.00-0.50 (BEAKER) (test code = 416) BASOPHILS ABSOLUTE COUNT (BEAKER) 0.03 K/ L 0.00-0.20 (test code = 417) IMMATURE GRANULOCYTES-RELATIVE 2 % 0-0 H PERCENT (BEAKER) (test code = 2801) BLOOD GAS, [id number] 03:49:00 Test Item Value Reference Range Interpretation Comments PH ARTERIAL (BEAKER) (test code = 7.41 7.35-7.45 383) PCO2 ARTERIAL (BEAKER) (test code 52 mm Hg 35-45 H = 384) PO2 ARTERIAL (BEAKER) (test code = 71 mm Hg 80-90 L 385) O2 SATURATION ARTERIAL (BEAKER) 94.1 % 96.0-97.0 L (test code = 386) HCO3 ARTERIAL (BEAKER) (test code 32 mmol/L 21-29 H = 388) BASE EXCESS ARTERIAL (BEAKER) 5.8 mmol/L -2.0-3.0 H (test code = 387) PATIENT TEMPERATURE (BEAKER) (test 37.0 code = 1818) FIO2 (BEAKER) (test code = 1819) 50.0 POCT-GLUCOSE [id number] 00:00:00 Test Item Value Reference Range Interpretation Comments POC-GLUCOSE METER 107 mg/dL 70-110 : TESTED A T [facility] [address] (BEAKER) (test code [address], = 1538) [place] [address]: Mobile Home Installer/Techni jatin ID = [id number] for Donavan Arce POCT-GLUCOSE [id number] 18:00:00 Test Item Value Reference Range Interpretation Comments POC-GLUCOSE METER 76 mg/dL 70-110 : TESTED A T [facility] [address] (BEAKER) (test code = [address], 15[address]) [place] [id number]: Mobile Home Installer/Techni jatin ID = [id number] for Rajni Pate POCT-GLUCOSE [id number] 12:11:00 Test Item Value Reference Range Interpretation Comments POC-GLUCOSE METER 111 mg/dL 70-110 H : TESTED A T [facility] [address] (BEAKER) (test code [address], = 1538) [place] [id number]: Mobile Home Installer/Techni jatin ID = [id number] for Daniel mbas, Lavonne RAD, CHEST, 1 VIEW, NON [id number] 09:34:00Reason for exam:->hypoxic covid[facility] BERGERFLORENCE : 1985 Sex: MFINAL REPORT History: Hypoxia, Covid. FINDINGS: Chest, single view: Compared with February 06, 2021, the heart and mediastinum are stable. Tube and line positions are unchanged. Lung volumes remain low. Diffuse bilateral pulmonary airspace opacity, consistent with viral or atypical pneumonia, pe rsists and is unchanged. No pneumothorax. No pleural effusions. Bones are unremarkable. IMPRESSION: 1. Stable chest. Signed: Cricket Lopez Verified Date/Time: 02/07/2021 09:34:40 Reading Location: [facility] Radiology Reading Room RAD, ABDOMEN/KUB 1 VIEW [id number] 09:34:00Reason for exam:->f/u ileus [facility] FLORENCE BER[facility] : 1985 Sex: MFINAL REPORT History: Hypoxia, Covid. FINDINGS: Chest, single view: Compared with February 06, 2021, the heart and mediastinum are stable. Tube and line positions are unchanged. Lung volumes remain low. Diffuse bilateral pulmonary airspace opacity, consistent with viral or atypical pneumonia, pe rsists and is unchanged. No pneumothorax. No pleural effusions. Bones are unremarkable. IMPRESSION: 1. Stable chest. Signed: Cricket Lopez Verified Date/Time: 02/07/2021 09:34:40 Reading Location: [facility] Radiology Reading Room -[id number] 06:03:00 Test Item Value Reference Range Interpretation Comments D-DIMER QUANTITATIVE 0.83 MG/L FEU <0.50 H Final Information (BEAKER) (test code = (Auto Output) 004) REGARDING D-DIMER RESULTS: The 98% NPV (Negative Predictive Value) for DVT/PE exclusion is 0.50 mg/LFEU as suggested by the merchandise flow manager and as approved by the FDA.[id number] 05:53:00 Test Item Value Reference Range Interpretation Comments FERRITIN (BEAKER) (test code = 744.40 ng/mL 22.00-322.00 H 361) Mobile Home Installer ID - [id number] 05:36:00 Test Item Value Reference Range Interpretation Comments MAGNESIUM (BEAKER) (test code = 2.6 mg/dL 1.5-3.0 627) Mobile Home Installer ID - [id number] ID - [id number] ID - [id number] ID - [id number] METABOLIC [id number] 05:35:00 Test Item Value Reference Range Interpretation Comments SODIUM (BEAKER) 140 meq/L 135-148 (test code = 381) POTASSIUM (BEAKER) 4.6 meq/L 3.6-5.5 (test code = 379) CHLORIDE (BEAKER) 101 meq/L 98-106 (test code = 382) CO2 (BEAKER) (test 30 meq/L 20-29 H code = 355) BLOOD UREA NITROGEN 32 mg/dL 10-26 H (BEAKER) (test code = 354) CREATININE (BEAKER) 0.88 mg/dL 0.50-1.20 (test code = 358) GLUCOSE RANDOM 96 mg/dL 70-110 (BEAKER) (test code = 652) CALCIUM (BEAKER) 9.1 mg/dL 8.5-10.5 (test code = 697) EGFR (BEAKER) (test 100 mL/min/1.73 ESTIM ATED GFR IS code = 1092) sq m NOT ACCURATE CREATININE CLEARANCE IN PREDICTING GLOMERULAR FILTRATION RATE . ESTIMATED GFR I S NOT APPLICABLE FOR DIALYSIS PATIEN TS. Mobile Home Installer ID - [id number] ID - [id number] ID - [id number] ID - [id number] ID - [id number] ID - [id number] ID - [id number] ID - [id number] ID - [id number] 05:33:00 Test Item Value Reference Range Interpretation Comments PHOSPHORUS (BEAKER) (test code = 3.7 mg/dL 2.5-4.5 604) Mobile Home Installer ID - [id number] 05:30:00 Test Item Value Reference Range Interpretation Comments Triglycerides (test 424 mg/dL code = 2571-8) PENNY (test code = PENNY) TRIGLYCERIDE REFERENCE RANGELow Risk <150Borderline Risk 150-199High Risk 200-499Very High Risk >=500Operator ID - [id number] [facility][id number] 05:30:00 Test Item Value Reference Range Interpretation Comments Triglycerides (test 424 mg/dL code = 2571-8) PENNY (test code = PENNY) TRIGLYCERIDE REFERENCE RANGELow Risk <150Borderline Risk 150-199High Risk 200-499Very High Risk >=500Operator ID - [id number] [facility] CenterOkzyvcXNOBOPSSREUPF0194-49-99 05:30:00 Test Item Value Reference Range Interpretation Comments TRIGLYCERIDES (BEAKER) (test code = 424 mg/dL 540) TRIGLYCERIDE REFERENCE RANGELow Risk <150Borderline Risk 150-199High Risk 200-499Very High Risk >=500Operator ID - [id number] W/PLT COUNT & AUTO [id number] 05:27:00 Test Item Value Reference Range Interpretation Comments WHITE BLOOD CELL COUNT (BEAKER) 19.8 K/ L 4.0-10.0 H (test code = 775) RED BLOOD CELL COUNT (BEAKER) 4.94 M/ L 4.20-5.80 (test code = 761) HEMOGLOBIN (BEAKER) (test code = 14.8 GM/DL 13.0-16.8 410) HEMATOCRIT (BEAKER) (test code = 43.4 % 36.0-50.0 411) MEAN CORPUSCULAR VOLUME (BEAKER) 87.9 fL 82.0-99.0 (test code = 753) MEAN CORPUSCULAR HEMOGLOBIN 30.0 pg 27.0-33.0 (BEAKER) (test code = 751) MEAN CORPUSCULAR HEMOGLOBIN CONC 34.1 GM/DL 32.0-36.0 (BEAKER) (test code = 752) RED CELL DISTRIBUTION WIDTH 12.0 % 12.0-15.0 (BEAKER) (test code = 412) PLATELET COUNT (BEAKER) (test 476 K/CU MM 150-430 H code = 756) MEAN PLATELET VOLUME (BEAKER) 10.1 fL 6.0-11.5 (test code = 754) NUCLEATED RED BLOOD CELLS 0 /100 WBC 0-0 (BEAKER) (test code = 413) NEUTROPHILS RELATIVE PERCENT 82 % (BEAKER) (test code = 429) LYMPHOCYTES RELATIVE PERCENT 8 % (BEAKER) (test code = 430) MONOCYTES RELATIVE PERCENT 6 % (BEAKER) (test code = 431) EOSINOPHILS RELATIVE PERCENT 0 % (BEAKER) (test code = 432) BASOPHILS RELATIVE PERCENT 0 % (BEAKER) (test code = 437) NEUTROPHILS ABSOLUTE COUNT 16.34 K/ L 1.80-8.00 H (BEAKER) (test code = 670) LYMPHOCYTES ABSOLUTE COUNT 1.66 K/ L 1.48-4.50 (BEAKER) (test code = 414) MONOCYTES ABSOLUTE COUNT (BEAKER) 1.09 K/ L 0.00-1.30 (test code = 415) EOSINOPHILS ABSOLUTE COUNT 0.00 K/ L 0.00-0.50 (BEAKER) (test code = 416) BASOPHILS ABSOLUTE COUNT (BEAKER) 0.06 K/ L 0.00-0.20 (test code = 417) IMMATURE GRANULOCYTES-RELATIVE 4 % 0-0 H PERCENT (BEAKER) (test code = 2801) BLOOD GAS, [id number] 04:54:00 Test Item Value Reference Range Interpretation Comments PH ARTERIAL (BEAKER) (test code = 7.50 7.35-7.45 H 383) PCO2 ARTERIAL (BEAKER) (test code 40 mm Hg 35-45 = 384) PO2 ARTERIAL (BEAKER) (test code = 66 mm Hg 80-90 L 385) O2 SATURATION ARTERIAL (BEAKER) 94.5 % 96.0-97.0 L (test code = 386) HCO3 ARTERIAL (BEAKER) (test code 30 mmol/L 21-29 H = 388) BASE EXCESS ARTERIAL (BEAKER) 6.2 mmol/L -2.0-3.0 H (test code = 387) PATIENT TEMPERATURE (BEAKER) (test 37.0 code = 1818) FIO2 (BEAKER) (test code = 1819) 50.0 POCT-GLUCOSE [id number] 23:22:00 Test Item Value Reference Range Interpretation Comments POC-GLUCOSE METER 81 mg/dL 70-110 : TESTED A T [facility] (BEAKER) (test code = [address], [address]) [place] [id number]: Mobile Home Installer/Techni jatin ID = [id number] for Donavan Arce POCT-GLUCOSE [id number] 19:00:00 Test Item Value Reference Range Interpretation Comments POC-GLUCOSE METER 94 mg/dL 70-110 : TESTED A T [facility] (BEAKER) (test code = [address], 15[address]) [place] [id number]: Mobile Home Installer/Techni jatin ID = [id number] for Mukund Lacy POCT-GLUCOSE [id number] 14:18:00 Test Item Value Reference Range Interpretation Comments POC-GLUCOSE METER 101 mg/dL 70-110 : TESTED A T [facility] [address] (LINUS) (test code [address], = 1538) [facility] [place] [address] 478: Mobile Home Installer/Techni jatin ID = [id number] for Mukund Lacy, ABDOMEN/KUB 1 VIEW [id number] 13:07:00Reason for exam:->severe abdominal distention [facility] : 1985 Sex: MFINAL REPORT TECHNIQUE: Single View of the Abdomen. INDICATION: severe abdominal distention. COMPARISON: Radiograph from 01/30/2021. FINDINGS/IMPRESSION: The tip of the NG tube is over the gastric antrum. The colon is prominent from the sigmoid colon through the right colon with a cecum whichmeasures 9.7 cm in diameter. No definite gas is seen in the rectum. Overall, these findings are nonspecific and could be due to an adynamic ileus or colonic pseudoobstruction. A distal colonic obstruction cannot be entirely excluded on the basis of this radiograph but is considered less likely. The pat sha opacity in the left base is only partially visualized but similar to the prior. Signed: Jaja Mayer MDReport Verified Date/Time: 02/06/2021 13:07:03 RAD, CHEST, 1 VIEW, NON [id number] 09:16:00Reason for exam:->hypoxic covid [facility] : 1985 Sex: MFINAL REPORT History: Covid, hypoxia. FINDINGS: Compared with February 05, 2021, the heart and mediastinum are stable. Tube and line positions are unchanged. No pneumothorax. Lung volumes are low. Patchy bilateral pulmonary airspace opacity, consistent with atypical pneumonia, persists and is unchanged. No large pleural effusions. Bones are unremarkable. IMPRESSION: 1. Stable chest. Diffuse bilateral pulmonary airspace opacity persists. Signed: Cricket Lopez Verified Date/Time: 02/06/2021 09:16:02 Reading Location: [facility] Radiology Reading Room [id number] 05:38:00 Test Item Value Reference Range Interpretation Comments MAGNESIUM (BEAKER) 2.6 mg/dL 1.5-3.0 Specimen slightly (test code = 627) hemolyzed Mobile Home Installer ID - LITOOperator ID - LITOOperator ID - LITOOperator ID - LITOBASIC METABOLIC [id number] 05:36:00 Test Item Value Reference Range Interpretation Comments SODIUM (BEAKER) 135 meq/L 135-148 (test code = 381) POTASSIUM (BEAKER) 4.4 meq/L 3.6-5.5 Specimen slightly (test code = 379) hemolyzed CHLORIDE (BEAKER) 101 meq/L 98-106 (test code = 382) CO2 (BEAKER) (test 25 meq/L 20-29 code = 355) BLOOD UREA NITROGEN 29 mg/dL 10-26 H (BEAKER) (test code = 354) CREATININE (BEAKER) 0.70 mg/dL 0.50-1.20 Specimen slightly (test code = 358) hemolyzed GLUCOSE RANDOM 123 mg/dL 70-110 H (BEAKER) (test code = 652) CALCIUM (BEAKER) 8.2 mg/dL 8.5-10.5 L (test code = 697) EGFR (BEAKER) (test 130 mL/min/1.73 ESTIM ATED GFR IS code = 1092) sq m NOT ACCURATE CREATININE CLEARANCE IN PREDICTING GLOMERULAR FILTRATION RATE . ESTIMATED GFR I S NOT APPLICABLE FOR DIALYSIS PATIEN TS. Mobile Home Installer ID - LITOOperator ID - LITOOperator ID - LITOOperator ID - LITOOperator ID - LITOOperator ID - LITOOperator ID - LITOOperator ID - LITOOperator ID - [id number] 05:35:00 Test Item Value Reference Range Interpretation Comments PHOSPHORUS (BEAKER) 2.8 mg/dL 2.5-4.5 Specimen slightly (test code = 604) hemolyzed Mobile Home Installer ID - LITOCBC W/PLT COUNT & AUTO [id number] 05:31:00 Test Item Value Reference Range Interpretation Comments WHITE BLOOD CELL COUNT (BEAKER) 15.8 K/ L 4.0-10.0 H (test code = 775) RED BLOOD CELL COUNT (BEAKER) 4.08 M/ L 4.20-5.80 L (test code = 761) HEMOGLOBIN (BEAKER) (test code = 12.4 GM/DL 13.0-16.8 L 410) HEMATOCRIT (BEAKER) (test code = 36.6 % 36.0-50.0 411) MEAN CORPUSCULAR VOLUME (BEAKER) 89.7 fL 82.0-99.0 (test code = 753) MEAN CORPUSCULAR HEMOGLOBIN 30.4 pg 27.0-33.0 (BEAKER) (test code = 751) MEAN CORPUSCULAR HEMOGLOBIN CONC 33.9 GM/DL 32.0-36.0 (BEAKER) (test code = 752) RED CELL DISTRIBUTION WIDTH 12.0 % 12.0-15.0 (BEAKER) (test code = 412) PLATELET COUNT (BEAKER) (test 357 K/CU MM 150-430 code = 756) MEAN PLATELET VOLUME (BEAKER) 10.5 fL 6.0-11.5 (test code = 754) NUCLEATED RED BLOOD CELLS 0 /100 WBC 0-0 (BEAKER) (test code = 413) NEUTROPHILS RELATIVE PERCENT 89 % (BEAKER) (test code = 429) LYMPHOCYTES RELATIVE PERCENT 4 % (BEAKER) (test code = 430) MONOCYTES RELATIVE PERCENT 4 % (BEAKER) (test code = 431) EOSINOPHILS RELATIVE PERCENT 0 % (BEAKER) (test code = 432) BASOPHILS RELATIVE PERCENT 0 % (BEAKER) (test code = 437) NEUTROPHILS ABSOLUTE COUNT 14.09 K/ L 1.80-8.00 H (BEAKER) (test code = 670) LYMPHOCYTES ABSOLUTE COUNT 0.67 K/ L 1.48-4.50 L (BEAKER) (test code = 414) MONOCYTES ABSOLUTE COUNT (BEAKER) 0.55 K/ L 0.00-1.30 (test code = 415) EOSINOPHILS ABSOLUTE COUNT 0.00 K/ L 0.00-0.50 (BEAKER) (test code = 416) BASOPHILS ABSOLUTE COUNT (BEAKER) 0.03 K/ L 0.00-0.20 (test code = 417) IMMATURE GRANULOCYTES-RELATIVE 3 % 0-0 H PERCENT (BEAKER) (test code = 2801) BLOOD GAS, [id number] 03:54:00 Test Item Value Reference Range Interpretation Comments PH ARTERIAL (BEAKER) (test code = 7.46 7.35-7.45 H 383) PCO2 ARTERIAL (BEAKER) (test code 40 mm Hg 35-45 = 384) PO2 ARTERIAL (BEAKER) (test code = 73 mm Hg 80-90 L 385) O2 SATURATION ARTERIAL (BEAKER) 95.3 % 96.0-97.0 L (test code = 386) HCO3 ARTERIAL (BEAKER) (test code 28 mmol/L 21-29 = 388) BASE EXCESS ARTERIAL (BEAKER) 3.7 mmol/L -2.0-3.0 H (test code = 387) PATIENT TEMPERATURE (BEAKER) (test 37.0 code = 1818) FIO2 (BEAKER) (test code = 1819) 55.0 POCT-GLUCOSE [id number] 00:13:00 Test Item Value Reference Range Interpretation Comments POC-GLUCOSE METER 91 mg/dL 70-110 : TESTED A T [facility]17 (BEAKER) (test code = [address], [address]) [facility] 77 8: Mobile Home Installer/Techni jatin ID = [id number] for Amarjit rMelvinda POCT-GLUCOSE [id number] 17:51:00 Test Item Value Reference Range Interpretation Comments POC-GLUCOSE METER 123 mg/dL 70-110 H : Notified RN/MD: TESTED ([facility]) (test code AT [facility] [address] POINT = 1538) [place] [address]: Mobile Home Installer/Techni jatin ID = [id number] for Derick h, Lorita POCT-GLUCOSE [id number] 11:59:00 Test Item Value Reference Range Interpretation Comments POC-GLUCOSE METER 137 mg/dL 70-110 H : Notified RN/MD: TESTED ([facility]) (test code AT [facility] [address] POINT = 1538) [place] [address]: Mobile Home Installer/Techni jatin ID = [id number] for Derick h, Lorita RAD, CHEST, 1 VIEW, NON [id number] 09:24:00Reason for exam:->hypoxic covidH[facility]: FLORENCE [facility]ERGER : 1985 Sex: MFINAL REPORT X-ray chest AP portable COMPARISON: One day prior HISTORY: hypoxic covid FINDINGS:Technical adequacy: AP portable upright with significant patient rotationDevices: The endotracheal tube has been slightly retracted and the tip is situated approximately 2 cm above the melanie. Thisis a low position which might be attributable to a flexed neck. The tube can be safely retracted approximately 2 cm. No change in partially visualized nasogastric tube and right arm PICC line with the tip in the lower right atrium.Central airways: Stable appearanceHeart: Stable appearanceGreat vessels: Stable appearanceMediastinum: Stable appearanceLungs: No change in bilateral diffuse airspace and interstitial opacitiesPleura: Stable appearanceSkeletal structures: Stable appearanceExtrathoracic soft tissues: Stable appearanceAdditional comments: Impression: Stable appearance of life support devices and cardiopulmonary findings. Please see above regarding endotracheal tube. Signed: Tae Gaport Verified Date/Time: 02/05/2021 09:24:47 Reading Location: [facility] Radiology Reading Room [id number] 06:07:00 Test Item Value Reference Range Interpretation Comments FERRITIN (BEAKER) (test code = 635.80 ng/mL 22.00-322.00 H 361) Mobile Home Installer ID - [id number] 05:49:00 Test Item Value Reference Range Interpretation Comments MAGNESIUM (BEAKER) (test code = 2.9 mg/dL 1.5-3.0 627) Mobile Home Installer ID - [id number] ID - [id number] ID - [id number] ID - [id number] METABOLIC [id number] 05:48:00 Test Item Value Reference Range Interpretation Comments SODIUM (BEAKER) 142 meq/L 135-148 (test code = 381) POTASSIUM (BEAKER) 3.9 meq/L 3.6-5.5 (test code = 379) CHLORIDE (BEAKER) 104 meq/L 98-106 (test code = 382) CO2 (BEAKER) (test 26 meq/L 20-29 code = 355) BLOOD UREA NITROGEN 34 mg/dL 10-26 H (BEAKER) (test code = 354) CREATININE (BEAKER) 0.84 mg/dL 0.50-1.20 (test code = 358) GLUCOSE RANDOM 111 mg/dL 70-110 H (BEAKER) (test code = 652) CALCIUM (BEAKER) 8.4 mg/dL 8.5-10.5 L (test code = 697) EGFR (BEAKER) (test 105 mL/min/1.73 ESTIM ATED GFR IS code = 1092) sq m NOT ACCURATE CREATININE CLEARANCE IN PREDICTING GLOMERULAR FILTRATION RATE . ESTIMATED GFR I S NOT APPLICABLE FOR DIALYSIS PATIEN TS. Mobile Home Installer ID - [id number] ID - [id number] ID - [id number] ID - [id number] ID - [id number] ID - [id number] ID - [id number] ID - [id number] ID - [id number] 05:47:00 Test Item Value Reference Range Interpretation Comments PHOSPHORUS (BEAKER) (test code = 3.7 mg/dL 2.5-4.5 604) Mobile Home Installer ID - [id number] 05:37:00 Test Item Value Reference Range Interpretation Comments D-DIMER QUANTITATIVE 0.81 MG/L FEU <0.50 H Final Information (BEAKER) (test code = (Auto Output) 671) REGARDING D-DIMER RESULTS: The 98% NPV (Negative Predictive Value) for DVT/PE exclusion is 0.50 mg/LFEU as suggested by the merchandise flow manager and as approved by the FDA.CBC W/PLT COUNT & AUTO [id number] 05:26:00 Test Item Value Reference Range Interpretation Comments WHITE BLOOD CELL COUNT (BEAKER) 21.0 K/ L 4.0-10.0 H (test code = 775) RED BLOOD CELL COUNT (BEAKER) 4.72 M/ L 4.20-5.80 (test code = 761) HEMOGLOBIN (BEAKER) (test code = 14.3 GM/DL 13.0-16.8 410) HEMATOCRIT (BEAKER) (test code = 41.8 % 36.0-50.0 411) MEAN CORPUSCULAR VOLUME (BEAKER) 88.6 fL 82.0-99.0 (test code = 753) MEAN CORPUSCULAR HEMOGLOBIN 30.3 pg 27.0-33.0 (BEAKER) (test code = 751) MEAN CORPUSCULAR HEMOGLOBIN CONC 34.2 GM/DL 32.0-36.0 (BEAKER) (test code = 752) RED CELL DISTRIBUTION WIDTH 12.1 % 12.0-15.0 (BEAKER) (test code = 412) PLATELET COUNT (BEAKER) (test 529 K/CU MM 150-430 H code = 756) MEAN PLATELET VOLUME (BEAKER) 9.9 fL 6.0-11.5 (test code = 754) NUCLEATED RED BLOOD CELLS 0 /100 WBC 0-0 (BEAKER) (test code = 413) NEUTROPHILS RELATIVE PERCENT 83 % (BEAKER) (test code = 429) LYMPHOCYTES RELATIVE PERCENT 5 % (BEAKER) (test code = 430) MONOCYTES RELATIVE PERCENT 4 % (BEAKER) (test code = 431) EOSINOPHILS RELATIVE PERCENT 0 % (BEAKER) (test code = 432) BASOPHILS RELATIVE PERCENT 0 % (BEAKER) (test code = 437) NEUTROPHILS ABSOLUTE COUNT 17.51 K/ L 1.80-8.00 H (BEAKER) (test code = 670) LYMPHOCYTES ABSOLUTE COUNT 1.08 K/ L 1.48-4.50 L (BEAKER) (test code = 414) MONOCYTES ABSOLUTE COUNT (BEAKER) 0.81 K/ L 0.00-1.30 (test code = 415) EOSINOPHILS ABSOLUTE COUNT 0.00 K/ L 0.00-0.50 (BEAKER) (test code = 416) BASOPHILS ABSOLUTE COUNT (BEAKER) 0.05 K/ L 0.00-0.20 (test code = 417) IMMATURE GRANULOCYTES-RELATIVE 8 % 0-0 H PERCENT (BEAKER) (test code = 2801) BLOOD GAS, [id number] 04:05:00 Test Item Value Reference Range Interpretation Comments PH ARTERIAL (BEAKER) (test code = 7.41 7.35-7.45 383) PCO2 ARTERIAL (BEAKER) (test code 46 mm Hg 35-45 H = 384) PO2 ARTERIAL (BEAKER) (test code = 68 mm Hg 80-90 L 385) O2 SATURATION ARTERIAL (BEAKER) 93.6 % 96.0-97.0 L (test code = 386) HCO3 ARTERIAL (BEAKER) (test code 29 mmol/L 21-29 = 388) BASE EXCESS ARTERIAL (BEAKER) 3.2 mmol/L -2.0-3.0 H (test code = 387) PATIENT TEMPERATURE (BEAKER) (test 37.0 code = 1818) FIO2 (BEAKER) (test code = 1819) 55.0 POCT-GLUCOSE [id number] 00:46:00 Test Item Value Reference Range Interpretation Comments POC-GLUCOSE METER 127 mg/dL 70-110 H : Notified RN/MD: [facility] (test code AT [facility] [address] POINT = 1538) [place] [address]: Mobile Home Installer/Techni jatin ID = [id number] for Prov ost, Ashley POCT-GLUCOSE [id number] 17:15:00 Test Item Value Reference Range Interpretation Comments POC-GLUCOSE METER 121 mg/dL 70-110 H : Notified RN/MD: [facility] (test code AT [facility] [address] POINT = 1538) [place] [address]: Mobile Home Installer/Techni jatin ID = [id number] for Derick h, Lorita POCT-GLUCOSE [id number] 12:04:00 Test Item Value Reference Range Interpretation Comments POC-GLUCOSE METER 157 mg/dL 70-110 H : Notified RN/MD: [facility]ED [facility] (test code AT [facility] [address] POINT = 1538) [place] [address]: Mobile Home Installer/Techni jatin ID = [id number] for Derick h, Lorita RAD, CHEST, 1 VIEW, NON [id number] 08:35:00Reason for exam:->hypoxic covidHUNTINGTON BEACH [facility]ENTERName: FLORENCE BERGER : 1985 Sex: MFINAL REPORT EXAM: Chest one view COMPARISON: February 03, 2021 CLINICAL HISTORY: Hypoxia FINDINGS: The endotracheal tube tip overlies the melanie, recommend pulling the tube back by 1 to 2 cm. The nasogastric tube and right arm PICC appear unchanged in position. Bilateral diffuse airway opacities are again noted without interval improvement. The cardiac size is enlarged. There is no evidence of pleural effusion or pneumothorax. The regional osseous structures are unremarkable. Signed: Marcelo Cai MDReport Verified Date/Time: 02/04/2021 08:35:46 Reading Location: [facility] Radiology Reading Room MAGNESIUM 2021-02-04 05:38:00 Test Item Value Reference Range Interpretation Comments MAGNESIUM (BEAKER) 2.6 mg/dL 1.5-3.0 Specimen slightly (test code = 627) hemolyzed Mobile Home Installer ID - JUSTINOperator ID - JUSTINOperator ID - JUSTINOperator ID - JESSIE BASIC METABOLIC [id number] 05:37:00 Test Item Value Reference Range Interpretation Comments SODIUM (BEAKER) 145 meq/L 135-148 (test code = 381) POTASSIUM (BEAKER) 4.1 meq/L 3.6-5.5 Specimen slightly (test code = 379) hemolyzed CHLORIDE (BEAKER) 108 meq/L 98-106 H (test code = 382) CO2 (BEAKER) (test 29 meq/L 20-29 code = 355) BLOOD UREA NITROGEN 35 mg/dL 10-26 H (BEAKER) (test code = 354) CREATININE (BEAKER) 0.79 mg/dL 0.50-1.20 Specimen slightly (test code = 358) hemolyzed GLUCOSE RANDOM 101 mg/dL 70-110 (BEAKER) (test code = 652) CALCIUM (BEAKER) 8.4 mg/dL 8.5-10.5 L (test code = 697) EGFR (BEAKER) (test 113 mL/min/1.73 ESTIM ATED GFR IS code = 1092) sq m NOT ACCURATE CREATININE CLEARANCE IN PREDICTING GLOMERULAR FILTRATION RATE . ESTIMATED GFR I S NOT APPLICABLE FOR DIALYSIS PATIEN TS. 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 Installer ID - JUSTINCBC W/PLT COUNT & AUTO [id number] 05:31:00 Test Item Value Reference Range Interpretation Comments WHITE BLOOD CELL COUNT (BEAKER) 20.4 K/ L 4.0-10.0 H (test code = 775) RED BLOOD CELL COUNT (BEAKER) 4.25 M/ L 4.20-5.80 (test code = 761) HEMOGLOBIN (BEAKER) (test code = 12.5 GM/DL 13.0-16.8 L 410) HEMATOCRIT (BEAKER) (test code = 37.5 % 36.0-50.0 411) MEAN CORPUSCULAR VOLUME (BEAKER) 88.2 fL 82.0-99.0 (test code = 753) MEAN CORPUSCULAR HEMOGLOBIN 29.4 pg 27.0-33.0 (BEAKER) (test code = 751) MEAN CORPUSCULAR HEMOGLOBIN CONC 33.3 GM/DL 32.0-36.0 (BEAKER) (test code = 752) RED CELL DISTRIBUTION WIDTH 12.3 % 12.0-15.0 (BEAKER) (test code = 412) PLATELET COUNT (BEAKER) (test 373 K/CU MM 150-430 code = 756) MEAN PLATELET VOLUME (BEAKER) 9.9 fL 6.0-11.5 (test code = 754) NUCLEATED RED BLOOD CELLS 0 /100 WBC 0-0 (BEAKER) (test code = 413) NEUTROPHILS RELATIVE PERCENT 87 % (BEAKER) (test code = 429) LYMPHOCYTES RELATIVE PERCENT 5 % (BEAKER) (test code = 430) MONOCYTES RELATIVE PERCENT 3 % (BEAKER) (test code = 431) EOSINOPHILS RELATIVE PERCENT 0 % (BEAKER) (test code = 432) BASOPHILS RELATIVE PERCENT 0 % (BEAKER) (test code = 437) NEUTROPHILS ABSOLUTE COUNT 17.64 K/ L 1.80-8.00 H (BEAKER) (test code = 670) LYMPHOCYTES ABSOLUTE COUNT 1.01 K/ L 1.48-4.50 L (BEAKER) (test code = 414) MONOCYTES ABSOLUTE COUNT (BEAKER) 0.68 K/ L 0.00-1.30 (test code = 415) EOSINOPHILS ABSOLUTE COUNT 0.00 K/ L 0.00-0.50 (BEAKER) (test code = 416) BASOPHILS ABSOLUTE COUNT (BEAKER) 0.04 K/ L 0.00-0.20 (test code = 417) IMMATURE GRANULOCYTES-RELATIVE 5 % 0-0 H PERCENT (BEAKER) (test code = 2801) BLOOD GAS, [id number] 04:09:00 Test Item Value Reference Range Interpretation Comments PH ARTERIAL (BEAKER) (test code = 7.42 7.35-7.45 383) PCO2 ARTERIAL (BEAKER) (test code 47 mm Hg 35-45 H = 384) PO2 ARTERIAL (BEAKER) (test code = 102 mm Hg 80-90 H 385) O2 SATURATION ARTERIAL (BEAKER) 97.7 % 96.0-97.0 H (test code = 386) HCO3 ARTERIAL (BEAKER) (test code 30 mmol/L 21-29 H = 388) BASE EXCESS ARTERIAL (BEAKER) 5.0 mmol/L -2.0-3.0 H (test code = 387) PATIENT TEMPERATURE (BEAKER) (test 37.0 code = 1818) FIO2 (BEAKER) (test code = 1819) 80.0 POCT-GLUCOSE [id number] 00:17:00 Test Item Value Reference Range Interpretation Comments POC-GLUCOSE METER 101 mg/dL 70-110 : Notified RN/MD: TESTED (BEAKER) (test code AT [facility] [address] POINT = 1538) [place] [id number]: Mobile Home Installer/Techni jatin ID = [id number] for Prov ost, Ashley POCT-GLUCOSE [id number] 17:21:00 Test Item Value Reference Range Interpretation Comments POC-GLUCOSE METER 103 mg/dL 70-110 : TESTED A T [facility] 1317 (BEAKER) (test code [facility], = 1538) [place] [id number]: Mobile Home Installer/Techni jatin ID = [id number] for Coli mbas, Lavonne POCT-GLUCOSE [id number] 12:41:00 Test Item Value Reference Range Interpretation Comments POC-GLUCOSE METER 142 mg/dL 70-110 H : [facility] (test code [facility], = 1538) [place] [id number]: Mobile Home Installer/Techni jatin ID = [id number] for Keshav Graejda RAD, CHEST, 1 VIEW, NON [id number] 09:39:00Reason for exam:->hypoxic covidCHI SUTTER [facility]AName: FLORENCE BERGER : 1985 Sex: MFINAL REPORT RAD, CHEST, 1 VIEW, NON DEPT INDICATION: hypoxic covid COMPARISON: Prior day's exam FINDINGS: Portable frontal view of the chest. IMPRESSION: Support Lines: ET tube tip is 3 cm superior to the melanie. NG tube descends below the diaphragm. NG tube descends below the diaphragm. Lungs and pleura: Bilateral airspace disease persists compatible with multifocal pneumonia and/or multifocal edema No pneumothorax. Heart and mediastinum: Stable contours. Additional findings: None. Signed: Yessica Staton Verified Date/Time: 02/03/2021 09:39:37 Reading Location: [facility] Radiology Reading Room Manual [id number] 09:23:00 Test Item Value Reference Range Interpretation Comments % Neutros (manual) (test 71 % code = 1359) % Lymphs (manual) (test 15 % code = 1360) % Monos (manual) (test 14 % code = 1361) # Neutros (manual) (test 11.01 See_Comment H [A utomated message] code = 1365) The system [employer] generated this result transmitted ref erence range: 1.80 - 8 .00 K/L. The refe rence range was not u sed to interpret this result as normal/abnor mal. # Lymphs (manual) (test 2.33 See_Comment [Au tomated message] code = 1366) The system [employer] generated this result transmitted ref erence range: 1.48 - 4 .50 K/L. The refe rence range was not u sed to interpret this result as normal/abnor mal. # Monos (manual) (test 2.17 See_Comment H [Aut omated message] code = 1367) The system [employer] generated this result transmitted ref erence range: 0.00 - 1 .30 K/L. The refe rence range was not u sed to interpret this result as normal/abnor mal. Total Counted (test code 100 = 1351) WBC Morphology (test Normal code = 487) Platelet Morphology Normal (test code = 486) Anisocytosis (test code 1+ few = 961) Poikilocytes (test code 1+ few = 966) Lab Interpretation (test Abnormal code = 79398-5) [facility] [id number] 09:23:00 Test Item Value Reference Range Interpretation Comments % Neutros (manual) (test 71 % code = 1359) % Lymphs (manual) (test 15 % code = 1360) % Monos (manual) (test 14 % code = 1361) # Neutros (manual) (test 11.01 See_Comment H [A utomated message] code = 1365) The system [employer] generated this result transmitted ref erence range: 1.80 - 8 .00 K/L. The refe rence range was not u sed to interpret this result as normal/abnor mal. # Lymphs (manual) (test 2.33 See_Comment [Au tomated message] code = 1366) The system [employer] generated this result transmitted ref erence range: 1.48 - 4 .50 K/L. The refe rence range was not u sed to interpret this result as normal/abnor mal. # Monos (manual) (test 2.17 See_Comment H [Aut omated message] code = 1367) The system [employer] generated this result transmitted ref erence range: 0.00 - 1 .30 K/L. The refe rence range was not u sed to interpret this result as normal/abnor mal. Total Counted (test code 100 = 1351) WBC Morphology (test Normal code = 487) Platelet Morphology Normal (test code = 486) Anisocytosis (test code 1+ few = 961) Poikilocytes (test code 1+ few = 966) Lab Interpretation (test Abnormal code = 53702-4) [facility] W/PLT COUNT & AUTO [id number] 09:23:00 Test Item Value Reference Range Interpretation Comments WHITE BLOOD CELL COUNT (BEAKER) 15.5 K/ L 4.0-10.0 H (test code = 775) RED BLOOD CELL COUNT (BEAKER) 4.67 M/ L 4.20-5.80 (test code = 761) HEMOGLOBIN (BEAKER) (test code = 13.6 GM/DL 13.0-16.8 410) HEMATOCRIT (BEAKER) (test code = 41.3 % 36.0-50.0 411) MEAN CORPUSCULAR VOLUME (BEAKER) 88.4 fL 82.0-99.0 (test code = 753) MEAN CORPUSCULAR HEMOGLOBIN 29.1 pg 27.0-33.0 (BEAKER) (test code = 751) MEAN CORPUSCULAR HEMOGLOBIN CONC 32.9 GM/DL 32.0-36.0 (BEAKER) (test code = 752) RED CELL DISTRIBUTION WIDTH 12.4 % 12.0-15.0 (BEAKER) (test code = 412) PLATELET COUNT (BEAKER) (test 433 K/CU MM 150-430 H code = 756) MEAN PLATELET VOLUME (BEAKER) 10.0 fL 6.0-11.5 (test code = 754) NUCLEATED RED BLOOD CELLS 0 /100 WBC 0-0 (BEAKER) (test code = 413) (MANUAL DIFFERENTIAL)2021-02-03 09:23:00 Test Item Value Reference Range Interpretation Comments NEUTROPHILS - REL (DIFF) (BEAKER) 71 % (test code = 1359) LYMPHOCYTES - REL (DIFF) (BEAKER) 15 % (test code = 1360) MONOCYTES - REL (DIFF) (BEAKER) 14 % (test code = 1361) NEUTROPHILS - ABS (DIFF) (BEAKER) 11.01 K/ L 1.80-8.00 H (test code = 1365) LYMPHOCYTES - ABS (DIFF) (BEAKER) 2.33 K/ L 1.48-4.50 (test code = 1366) MONOCYTES - ABS (DIFF) (BEAKER) 2.17 K/ L 0.00-1.30 H (test code = 1367) TOTAL COUNTED (BEAKER) (test code 100 = 1351) WBC MORPHOLOGY (BEAKER) (test code Normal = 487) PLT MORPHOLOGY (BEAKER) (test code Normal = 486) ANISOCYTOSIS (BEAKER) (test code = 1+ few 961) POIKILOCYTES (BEAKER) (test code = 1+ few 966) [id number] 06:38:00 Test Item Value Reference Range Interpretation Comments FERRITIN (BEAKER) (test code = 1026.20 ng/mL 22.00-322.00 H 361) Mobile Home Installer ID - [id number] 06:12:00 Test Item Value Reference Range Interpretation Comments D-DIMER QUANTITATIVE 0.38 MG/L FEU <0.50 Final Information (BEAKER) (test code = (Auto Output) 671) REGARDING D-DIMER RESULTS: The 98% NPV (Negative Predictive Value) for DVT/PE exclusion is 0.50 mg/LFEU as suggested by the merchandise flow manager and as approved by the FDA.[id number] 06:08:00 Test Item Value Reference Range Interpretation Comments MAGNESIUM (BEAKER) (test code = 2.7 mg/dL 1.5-3.0 627) Mobile Home Installer ID - [id number] ID - [id number] ID - [id number] ID - [id number] BASIC METABOLIC [id number] 06:07:00 Test Item Value Reference Range Interpretation Comments SODIUM (BEAKER) 147 meq/L 135-148 (test code = 381) POTASSIUM (BEAKER) 3.7 meq/L 3.6-5.5 (test code = 379) CHLORIDE (BEAKER) 109 meq/L 98-106 H (test code = 382) CO2 (BEAKER) (test 28 meq/L 20-29 code = 355) BLOOD UREA NITROGEN 40 mg/dL 10-26 H (BEAKER) (test code = 354) CREATININE (BEAKER) 0.88 mg/dL 0.50-1.20 (test code = 358) GLUCOSE RANDOM 132 mg/dL 70-110 H (BEAKER) (test code = 652) CALCIUM (BEAKER) 8.9 mg/dL 8.5-10.5 (test code = 697) EGFR (BEAKER) (test 100 mL/min/1.73 ESTIM ATED GFR IS code = 1092) sq m NOT ACCURATE CREATININE CLEARANCE IN PREDICTING GLOMERULAR FILTRATION RATE . ESTIMATED GFR I S NOT APPLICABLE FOR DIALYSIS PATIEN TS. Mobile Home Installer ID - [id number] ID - [id number] ID - [id number] ID - [id number] ID - [id number] ID - [id number] ID - [id number] ID - [id number] ID - [id number] 06:06:00 Test Item Value Reference Range Interpretation Comments PHOSPHORUS (BEAKER) (test code = 3.5 mg/dL 2.5-4.5 604) Mobile Home Installer ID - [id number] GAS, [id number] 05:06:00 Test Item Value Reference Range Interpretation Comments PH ARTERIAL (BEAKER) (test code = 7.55 7.35-7.45 H 383) PCO2 ARTERIAL (BEAKER) (test code 28 mm Hg 35-45 L = 384) PO2 ARTERIAL (BEAKER) (test code = 116 mm Hg 80-90 H 385) O2 SATURATION ARTERIAL (BEAKER) 98.7 % 96.0-97.0 H (test code = 386) HCO3 ARTERIAL (BEAKER) (test code 24 mmol/L 21-29 = 388) BASE EXCESS ARTERIAL (BEAKER) 2.5 mmol/L -2.0-3.0 (test code = 387) PATIENT TEMPERATURE (BEAKER) (test 36.7 code = 1818) FIO2 (BEAKER) (test code = 1819) 40.0 POCT-GLUCOSE [id number] 00:12:00 Test Item Value Reference Range Interpretation Comments POC-GLUCOSE METER 140 mg/dL 70-110 H : TESTED A T SLSL 1317 (BEAKER) (test code [facility] [address], = 1538) [facility] [place] [address]: Mobile Home Installer/Techni jatin ID = [id number] for Shona Bermudez POCT-GLUCOSE [id number] 17:56:00 Test Item Value Reference Range Interpretation Comments POC-GLUCOSE METER 141 mg/dL 70-110 H : Notified RN/MD: TESTED (BEAKER) (test code AT [address] = 1538) [facility] [id number]: Mobile Home Installer/Techni jatin ID = [id number] for Derick h Lorita POCT-GLUCOSE [id number] 11:56:00 Test Item Value Reference Range Interpretation Comments POC-GLUCOSE METER 164 mg/dL 70-110 H : Notified RN/MD: TESTED (BEAKER) (test code AT [facility] [address] [place] [address] = 1538) [place] [id number]: Mobile Home Installer/Techni jatin ID = [id number] for Derick h, Lorita CBC W/PLT COUNT & AUTO [id number] 08:50:00 Test Item Value Reference Range Interpretation Comments WHITE BLOOD CELL COUNT (BEAKER) 13.7 K/ L 4.0-10.0 H (test code = 775) RED BLOOD CELL COUNT (BEAKER) 4.30 M/ L 4.20-5.80 (test code = 761) HEMOGLOBIN (BEAKER) (test code = 12.7 GM/DL 13.0-16.8 L 410) HEMATOCRIT (BEAKER) (test code = 38.9 % 36.0-50.0 411) MEAN CORPUSCULAR VOLUME (BEAKER) 90.5 fL 82.0-99.0 (test code = 753) MEAN CORPUSCULAR HEMOGLOBIN 29.5 pg 27.0-33.0 (BEAKER) (test code = 751) MEAN CORPUSCULAR HEMOGLOBIN CONC 32.6 GM/DL 32.0-36.0 (BEAKER) (test code = 752) RED CELL DISTRIBUTION WIDTH 12.6 % 12.0-15.0 (BEAKER) (test code = 412) PLATELET COUNT (BEAKER) (test 343 K/CU MM 150-430 code = 756) MEAN PLATELET VOLUME (BEAKER) 9.7 fL 6.0-11.5 (test code = 754) NUCLEATED RED BLOOD CELLS 0 /100 WBC 0-0 (BEAKER) (test code = 413) NEUTROPHILS RELATIVE PERCENT 77 % (BEAKER) (test code = 429) LYMPHOCYTES RELATIVE PERCENT 7 % (BEAKER) (test code = 430) MONOCYTES RELATIVE PERCENT 5 % (BEAKER) (test code = 431) EOSINOPHILS RELATIVE PERCENT 0 % (BEAKER) (test code = 432) BASOPHILS RELATIVE PERCENT 0 % (BEAKER) (test code = 437) NEUTROPHILS ABSOLUTE COUNT 10.57 K/ L 1.80-8.00 H (BEAKER) (test code = 670) LYMPHOCYTES ABSOLUTE COUNT 0.92 K/ L 1.48-4.50 L (BEAKER) (test code = 414) MONOCYTES ABSOLUTE COUNT (BEAKER) 0.62 K/ L 0.00-1.30 (test code = 415) EOSINOPHILS ABSOLUTE COUNT 0.00 K/ L 0.00-0.50 (BEAKER) (test code = 416) BASOPHILS ABSOLUTE COUNT (BEAKER) 0.06 K/ L 0.00-0.20 (test code = 417) IMMATURE GRANULOCYTES-RELATIVE 11 % 0-0 H PERCENT (BEAKER) (test code = 2801) RAD, CHEST, 1 VIEW, NON [id number] 08:27:00Reason for exam:->hypoxic covidH[facility]: [facility] : 1985 Sex: MFINAL REPORT RAD, CHEST, 1 VIEW, NON DEPT INDICATION: hypoxic covid COMPARISON: Prior day's exam FINDINGS: Portable frontal view of the chest. IMPRESSION: Support Lines: ET tube tip is 3 cm superior to the melanie. NG tube descends below the diaphragm. NG tube descends below the diaphragm.Lungs and pleura: Bilateral airspace disease persists compatible with multifocal pneumonia and/or multifocal edema No pneumothorax.Heart and mediastinum: Stable contours.Additional findings: None. Signed: Yessica [place] Verified Date/Time: 02/02/2021 08:27:49 Reading Location: [facility] NeuroReading Room [id number] 07:07:00 Test Item Value Reference Range Interpretation Comments MAGNESIUM (BEAKER) (test code = 2.8 mg/dL 1.5-3.0 627) Mobile Home Installer ID - [id number] ID - [id number] ID - [id number] ID - [id number] BASIC METABOLIC [id number] 07:05:00 Test Item Value Reference Range Interpretation Comments SODIUM (BEAKER) 147 meq/L 135-148 (test code = 381) POTASSIUM (BEAKER) 4.1 meq/L 3.6-5.5 (test code = 379) CHLORIDE (BEAKER) 111 meq/L 98-106 H (test code = 382) CO2 (BEAKER) (test 26 meq/L 20-29 code = 355) BLOOD UREA NITROGEN 37 mg/dL 10-26 H (BEAKER) (test code = 354) CREATININE (BEAKER) 0.85 mg/dL 0.50-1.20 (test code = 358) GLUCOSE RANDOM 135 mg/dL 70-110 H (BEAKER) (test code = 652) CALCIUM (BEAKER) 8.8 mg/dL 8.5-10.5 (test code = 697) EGFR (BEAKER) (test 104 mL/min/1.73 ESTIM ATED GFR IS code = 1092) sq m NOT ACCURATE CREATININE CLEARANCE IN PREDICTING GLOMERULAR FILTRATION RATE . ESTIMATED GFR I S NOT APPLICABLE FOR DIALYSIS PATIEN TS. Mobile Home Installer ID - [id number] ID - [id number] ID - [id number] ID - GFAW60Kschxdun ID - IOQU43Ggbczxeb ID - FFEF00Slrxdwpc ID - SBNN14Fnrlstlf ID - VYIK21Cwflnmhv ID - [id number] 07:04:00 Test Item Value Reference Range Interpretation Comments PHOSPHORUS (BEAKER) (test code = 3.1 mg/dL 2.5-4.5 604) Mobile Home Installer ID - [id number] GAS, [id number] 04:46:00 Test Item Value Reference Range Interpretation Comments PH ARTERIAL (BEAKER) (test code = 7.43 7.35-7.45 383) PCO2 ARTERIAL (BEAKER) (test code 43 mm Hg 35-45 = 384) PO2 ARTERIAL (BEAKER) (test code = 93 mm Hg 80-90 H 385) O2 SATURATION ARTERIAL (BEAKER) 97.3 % 96.0-97.0 H (test code = 386) HCO3 ARTERIAL (BEAKER) (test code 28 mmol/L 21-29 = 388) BASE EXCESS ARTERIAL (BEAKER) 3.2 mmol/L -2.0-3.0 H (test code = 387) PATIENT TEMPERATURE (BEAKER) (test 37.0 code = 1818) FIO2 (BEAKER) (test code = 1819) 50.0 POCT-GLUCOSE [id number] 00:14:00 Test Item Value Reference Range Interpretation Comments POC-GLUCOSE METER 140 mg/dL 70-110 H : TESTED A T [facility] 131 (BEAKER) (test code [facility], = 1538) [place] [address]: Mobile Home Installer/Techni jatin ID = [id number] for Billy bi Cinthia POCT-GLUCOSE [id number] 17:30:00 Test Item Value Reference Range Interpretation Comments POC-GLUCOSE METER 122 mg/dL 70-110 H : Notified RN/MD: TESTED ([facility]) (test code AT [facility] [address] = 1538) [place] [address]: Mobile Home Installer/Techni jatin ID = [id number] for Derick h, Lorita POCT-GLUCOSE [id number] 11:44:00 Test Item Value Reference Range Interpretation Comments POC-GLUCOSE METER 160 mg/dL 70-110 H : Notified RN/MD: TESTED ([facility]) (test code AT [facility] [address] POINT = 1538) [place] [address]: Mobile Home Installer/Techni jatin ID = [id number] for Derick h, Lorita RAD, CHEST, 1 VIEW, NON [id number] 08:36:00Reason for exam:->hypoxic covidHUNTINGTON BEACH [facility]ENTERName: FLORENCE BERGER : 1985 Sex: MFINAL REPORT Chest, one view HISTORY: Hypoxemia Comparison: 01/31/2021 Findings: Lungs: Stable bilateral airspace disease. Heart: Normal in size. Pleura: No pleural effusion or pneumothorax. Bones: Unremarkable. Lines/tubes: Unchanged in position. Signed: Ritchie Guzmaneport Verified Date/Time: 02/01/2021 08:36:38 Reading Location: [address] Ortho Consult Reading Room CBC W/PLT COUNT & AUTO [id number] 08:35:00 Test Item Value Reference Range Interpretation Comments WHITE BLOOD CELL COUNT (BEAKER) 11.9 K/ L 4.0-10.0 H (test code = 775) RED BLOOD CELL COUNT (BEAKER) 3.97 M/ L 4.20-5.80 L (test code = 761) HEMOGLOBIN (BEAKER) (test code = 11.7 GM/DL 13.0-16.8 L 410) HEMATOCRIT (BEAKER) (test code = 36.0 % 36.0-50.0 411) MEAN CORPUSCULAR VOLUME (BEAKER) 90.7 fL 82.0-99.0 (test code = 753) MEAN CORPUSCULAR HEMOGLOBIN 29.5 pg 27.0-33.0 (BEAKER) (test code = 751) MEAN CORPUSCULAR HEMOGLOBIN CONC 32.5 GM/DL 32.0-36.0 (BEAKER) (test code = 752) RED CELL DISTRIBUTION WIDTH 12.8 % 12.0-15.0 (BEAKER) (test code = 412) PLATELET COUNT (BEAKER) (test 297 K/CU MM 150-430 code = 756) MEAN PLATELET VOLUME (BEAKER) 9.6 fL 6.0-11.5 (test code = 754) NUCLEATED RED BLOOD CELLS 0 /100 WBC 0-0 (BEAKER) (test code = 413) NEUTROPHILS RELATIVE PERCENT 81 % (BEAKER) (test code = 429) LYMPHOCYTES RELATIVE PERCENT 7 % (BEAKER) (test code = 430) MONOCYTES RELATIVE PERCENT 6 % (BEAKER) (test code = 431) EOSINOPHILS RELATIVE PERCENT 0 % (BEAKER) (test code = 432) BASOPHILS RELATIVE PERCENT 0 % (BEAKER) (test code = 437) NEUTROPHILS ABSOLUTE COUNT 9.66 K/ L 1.80-8.00 H (BEAKER) (test code = 670) LYMPHOCYTES ABSOLUTE COUNT 0.81 K/ L 1.48-4.50 L (BEAKER) (test code = 414) MONOCYTES ABSOLUTE COUNT (BEAKER) 0.66 K/ L 0.00-1.30 (test code = 415) EOSINOPHILS ABSOLUTE COUNT 0.00 K/ L 0.00-0.50 (BEAKER) (test code = 416) BASOPHILS ABSOLUTE COUNT (BEAKER) 0.03 K/ L 0.00-0.20 (test code = 417) IMMATURE GRANULOCYTES-RELATIVE 6 % 0-0 H PERCENT (BEAKER) (test code = 2801) [id number] 07:57:00 Test Item Value Reference Range Interpretation Comments D-DIMER QUANTITATIVE 0.39 MG/L FEU <0.50 Final Information (BEAKER) (test code = (Auto Output) 671) REGARDING D-DIMER RESULTS: The 98% NPV (Negative Predictive Value) for DVT/PE exclusion is 0.50 mg/LFEU as suggested by the merchandise flow manager and as approved by the FDA.[id number] 07:24:00 Test Item Value Reference Range Interpretation Comments FERRITIN (BEAKER) (test code = 2337.10 ng/mL 22.00-322.00 H 361) Mobile Home Installer ID - [id number] ID - ADMINHepatic function [id number] 06:26:00 Test Item Value Reference Range Interpretation Comments Protein, Total (test 5.2 See_Comment L [Autom ated code = 2885-2) message] The system which generated this result transmit olga reference range : 6.0 - 8.5 gm/dL . The reference range was not u sed to interpret th is result as normal/abnormal . Albumin (test code = 2.7 g/dL 3.5-5.0 L 98731-4) Total Bilirubin (test 0.2 mg/dL 0.1-1.2 code = 1974-) Bilirubin, Direct 0.2 mg/dL 0.0-0.4 (test code = 1967-) Alkaline Phosphatase 84 U/L 30-115 (test code = 6768-6) AST (test code = 70 U/L 5-40 H 1920-8) ALT (test code = 106 U/L 5-50 H 1742-6) PENNY (test code = PENNY) Mobile Home Installer ID - [id number] ID - [id number] ID - ploy55Vnoecgwq ID - yeln64Lafxyibb ID - vezm19Ctxexrko ID - qkfy27Khwfbbnl ID - [id number] Lab Interpretation Abnormal (test code = 25817-5) [facility] [id number] 06:26:00 Test Item Value Reference Range Interpretation Comments Protein, Total (test 5.2 See_Comment L [Autom ated code = 2885-2) message] The system which generated this result transmit olga reference range : 6.0 - 8.5 gm/dL . The reference range was not u sed to interpret th is result as normal/abnormal . Albumin (test code = 2.7 g/dL 3.5-5.0 L 40028-8) Total Bilirubin (test 0.2 mg/dL 0.1-1.2 code = 1974-) Bilirubin, Direct 0.2 mg/dL 0.0-0.4 (test code = 1968-01) Alkaline Phosphatase 84 U/L 30-115 (test code = 6768-6) AST (test code = 70 U/L 5-40 H 1920-8) ALT (test code = 106 U/L 5-50 H 1742-6) PENNY (test code = PENNY) Mobile Home Installer ID - [id number] ID - plzi55Dqopfvxg ID - zrib67Xcxpmxpe ID - dygy78Fxwlhxmr ID - gzot72Pwchmmfe ID - pcrd77Yfmfusdm ID - [id number] Lab Interpretation Abnormal (test code = 39633-6) [facility] [id number] 06:26:00 Test Item Value Reference Range Interpretation Comments TOTAL PROTEIN (BEAKER) (test code = 5.2 gm/dL 6.0-8.5 L 770) ALBUMIN (BEAKER) (test code = 1145) 2.7 g/dL 3.5-5.0 L BILIRUBIN TOTAL (BEAKER) (test code 0.2 mg/dL 0.1-1.2 = 377) BILIRUBIN DIRECT (BEAKER) (test 0.2 mg/dL 0.0-0.4 code = 706) ALKALINE PHOSPHATASE (BEAKER) (test 84 U/L 30-115 code = 346) AST (SGOT) (BEAKER) (test code = 70 U/L 5-40 H 353) ALT (SGPT) (BEAKER) (test code = 106 U/L 5-50 H 347) Mobile Home Installer ID - [id number] ID - xjhx76Jqhxkwsd ID - tugu38Fbzmkqon ID - dpfe47Favocasj ID - vuto51Hvisingw ID - nchm13Zskntjtx ID - [id number] 2021-02-01 06:22:00 Test Item Value Reference Range Interpretation Comments MAGNESIUM (BEAKER) (test code = 2.8 mg/dL 1.5-3.0 627) Mobile Home Installer ID - [id number] ID - fwvq32Sgyhstoy ID - duni52Npccdseb ID - [id number] BASIC METABOLIC [id number] 06:20:00 Test Item Value Reference Range Interpretation Comments SODIUM (BEAKER) 147 meq/L 135-148 (test code = 381) POTASSIUM (BEAKER) 4.2 meq/L 3.6-5.5 (test code = 379) CHLORIDE (BEAKER) 113 meq/L 98-106 H (test code = 382) CO2 (BEAKER) (test 28 meq/L 20-29 code = 355) BLOOD UREA NITROGEN 34 mg/dL 10-26 H (BEAKER) (test code = 354) CREATININE (BEAKER) 0.90 mg/dL 0.50-1.20 (test code = 358) GLUCOSE RANDOM 134 mg/dL 70-110 H (BEAKER) (test code = 652) CALCIUM (BEAKER) 8.4 mg/dL 8.5-10.5 L (test code = 697) EGFR (BEAKER) (test 97 mL/min/1.73 ESTIMA OLGA GFR IS code = 1092) sq m NOT ACCURATE CREATININE CLEARANCE IN PREDICTING GLOMERULAR FILTRATION RATE . ESTIMATED GFR I S NOT APPLICABLE FOR DIALYSIS PATIEN TS. Mobile Home Installer ID - [id number] ID - ydgf46Pqfwrrzd ID - mvgf13Zdupdthh ID - yydt67Yqbmnwri ID - lepw66Cnudcrzl ID - irtp45Zuulslhn ID - ksda44Flsmqflc ID - fkug27Douhzdej ID - [id number] 06:19:00 Test Item Value Reference Range Interpretation Comments PHOSPHORUS (BEAKER) (test code = 3.0 mg/dL 2.5-4.5 604) Mobile Home Installer ID - [id number] GAS, [id number] 04:15:00 Test Item Value Reference Range Interpretation Comments PH ARTERIAL (BEAKER) (test code = 7.38 7.35-7.45 383) PCO2 ARTERIAL (BEAKER) (test code 49 mm Hg 35-45 H = 384) PO2 ARTERIAL (BEAKER) (test code = 117 mm Hg 80-90 H 385) O2 SATURATION ARTERIAL (BEAKER) 98.2 % 96.0-97.0 H (test code = 386) HCO3 ARTERIAL (BEAKER) (test code 29 mmol/L 21-29 = 388) BASE EXCESS ARTERIAL (BEAKER) 2.7 mmol/L -2.0-3.0 (test code = 387) PATIENT TEMPERATURE (BEAKER) (test 37.0 code = 1818) FIO2 (BEAKER) (test code = 1819) 60.0 POCT-GLUCOSE [id number] 00:13:00 Test Item Value Reference Range Interpretation Comments POC-GLUCOSE METER 168 mg/dL 70-110 H : TESTED A T [facility] (test code [facility], = 1538) [facility] [address]: Mobile Home Installer/Techni jatin ID = [id number] for Zave r, Zubeda POCT-GLUCOSE [id number] 17:21:00 Test Item Value Reference Range Interpretation Comments POC-GLUCOSE METER 178 mg/dL 70-110 H : Notified RN/MD: TESTED (BEAKER) (test code AT [facility] [address] = 1538) [facility], [facility] [address]: Mobile Home Installer/Techni jatin ID = [id number] for Derick h Lorita POCT-GLUCOSE [id number] 12:33:00 Test Item Value Reference Range Interpretation Comments POC-GLUCOSE METER 124 mg/dL 70-110 H : Notified RN/MD: TESTED (LINUS) (test code AT [facility] [address] = 1538) [place] [address]: Mobile Home Installer/Techni jatin ID = [id number] for Derick h, Lorita RAD, CHEST, 1 VIEW, NON [id number] 08:33:00Reason for exam:->hypoxic covidCHI SUTTER [facility] ROSAName: FLORENCE BERGER : 1985 Sex: MFINAL REPORT INDICATION:Covid hypoxia. COMPARISON:Comparison chest x-ray 01/30/2021 TECHNIQUE:Frontal view of chest. FINDINGS:ET tube is 2.3 cm from melanie.Nasogastric tube is coursing left hemidiaphragm, tip is not included on this exam.Right-sided central venous catheter tip in high right at rium.Persistent interstitial and airspace opacities in both lungs.No pneumothorax or pleural effusion.Cardiac mediastinal silhouette is stable. IMPRESSION: 1. Lines and tubes as above.2. Persistent airspace and interstitial infiltrates, mild improvement lung aeration from previous study. Signed: Ladarius Forrest MDReport Verified Date/Time: 01/31/2021 08:33:42 Reading Location: [facility] Radiology Reading Room CBC W/PLT COUNT & AUTO [id number] 07:06:00 Test Item Value Reference Range Interpretation Comments WHITE BLOOD CELL COUNT (LINUS) 11.1 K/ L 4.0-10.0 H (test code = 775) RED BLOOD CELL COUNT (BEAKER) 4.14 M/ L 4.20-5.80 L (test code = 761) HEMOGLOBIN (BEAKER) (test code = 12.2 GM/DL 13.0-16.8 L 410) HEMATOCRIT (BEAKER) (test code = 36.6 % 36.0-50.0 411) MEAN CORPUSCULAR VOLUME (BEAKER) 88.4 fL 82.0-99.0 (test code = 753) MEAN CORPUSCULAR HEMOGLOBIN 29.5 pg 27.0-33.0 (BEAKER) (test code = 751) MEAN CORPUSCULAR HEMOGLOBIN CONC 33.3 GM/DL 32.0-36.0 (BEAKER) (test code = 752) RED CELL DISTRIBUTION WIDTH 12.6 % 12.0-15.0 (BEAKER) (test code = 412) PLATELET COUNT (BEAKER) (test 273 K/CU MM 150-430 code = 756) MEAN PLATELET VOLUME (BEAKER) 9.8 fL 6.0-11.5 (test code = 754) NUCLEATED RED BLOOD CELLS 0 /100 WBC 0-0 (BEAKER) (test code = 413) (MANUAL DIFFERENTIAL)2021-01-31 07:06:00 Test Item Value Reference Range Interpretation Comments NEUTROPHILS - REL (DIFF) (BEAKER) 78 % (test code = 1359) LYMPHOCYTES - REL (DIFF) (BEAKER) 12 % (test code = 1360) MONOCYTES - REL (DIFF) (BEAKER) 10 % (test code = 1361) NEUTROPHILS - ABS (DIFF) (BEAKER) 8.66 K/ L 1.80-8.00 H (test code = 1365) LYMPHOCYTES - ABS (DIFF) (BEAKER) 1.33 K/ L 1.48-4.50 L (test code = 1366) MONOCYTES - ABS (DIFF) (BEAKER) 1.11 K/ L 0.00-1.30 (test code = 1367) TOTAL COUNTED (BEAKER) (test code = 100 1351) WBC MORPHOLOGY (BEAKER) (test code Normal = 487) PLT MORPHOLOGY (BEAKER) (test code Normal = 486) ANISOCYTOSIS (BEAKER) (test code = 1+ few 961) POCT-GLUCOSE [id number] 05:50:00 Test Item Value Reference Range Interpretation Comments POC-GLUCOSE METER 138 mg/dL 70-110 H : TESTED A T [facility] [address] (BEAKER) (test code [address], = 1538) [facility] [place] [address]: Mobile Home Installer/Techni jatin ID = [id number] for Donavan Arce HEPATIC FUNCTION [id number] 05:20:00 Test Item Value Reference Range Interpretation Comments TOTAL PROTEIN (BEAKER) (test code = 5.5 gm/dL 6.0-8.5 L 770) ALBUMIN (BEAKER) (test code = 1145) 2.8 g/dL 3.5-5.0 L BILIRUBIN TOTAL (BEAKER) (test code 0.4 mg/dL 0.1-1.2 = 377) BILIRUBIN DIRECT (BEAKER) (test 0.3 mg/dL 0.0-0.4 code = 706) ALKALINE PHOSPHATASE (BEAKER) (test 98 U/L 30-115 code = 346) AST (SGOT) (BEAKER) (test code = 84 U/L 5-40 H 353) ALT (SGPT) (BEAKER) (test code = 100 U/L 5-50 H 347) Mobile Home Installer ID - LITOOperator ID - LITOOperator ID - LITOOperator ID - LITOOperator ID - LITOOperator ID - LITOOperator ID - [id number] 04:42:00 Test Item Value Reference Range Interpretation Comments MAGNESIUM (BEAKER) (test code = 2.5 mg/dL 1.5-3.0 627) Mobile Home Installer ID - LITOOperator ID - LITOOperator ID - LITOOperator ID - LITOBASIC METABOLIC [id number] 04:41:00 Test Item Value Reference Range Interpretation Comments SODIUM (BEAKER) 143 meq/L 135-148 (test code = 381) POTASSIUM (BEAKER) 3.6 meq/L 3.6-5.5 (test code = 379) CHLORIDE (BEAKER) 109 meq/L 98-106 H (test code = 382) CO2 (BEAKER) (test 24 meq/L 20-29 code = 355) BLOOD UREA NITROGEN 35 mg/dL 10-26 H (BEAKER) (test code = 354) CREATININE (BEAKER) 1.05 mg/dL 0.50-1.20 (test code = 358) GLUCOSE RANDOM 140 mg/dL 70-110 H (BEAKER) (test code = 652) CALCIUM (BEAKER) 8.7 mg/dL 8.5-10.5 (test code = 697) EGFR (BEAKER) (test 81 mL/min/1.73 ESTIMA OLGA GFR IS code = 1092) sq m NOT ACCURATE CREATININE CLEARANCE IN PREDICTING GLOMERULAR FILTRATION RATE . ESTIMATED GFR I S NOT APPLICABLE FOR DIALYSIS PATIEN TS. Mobile Home Installer ID - LITOOperator ID - LITOOperator ID - LITOOperator ID - LITOOperator ID - LITOOperator ID - LITOOperator ID - LITOOperator ID - LITOOperator ID - [id number] 04:39:00 Test Item Value Reference Range Interpretation Comments PHOSPHORUS (BEAKER) (test code = 2.4 mg/dL 2.5-4.5 L 604) Mobile Home Installer ID - LITOBLOOD GAS, [id number] 03:59:00 Test Item Value Reference Range Interpretation Comments PH ARTERIAL (BEAKER) (test code = 7.41 7.35-7.45 383) PCO2 ARTERIAL (BEAKER) (test code 43 mm Hg 35-45 = 384) PO2 ARTERIAL (BEAKER) (test code = 103 mm Hg 80-90 H 385) O2 SATURATION ARTERIAL (BEAKER) 97.7 % 96.0-97.0 H (test code = 386) HCO3 ARTERIAL (BEAKER) (test code 26 mmol/L 21-29 = 388) BASE EXCESS ARTERIAL (BEAKER) 1.4 mmol/L -2.0-3.0 (test code = 387) PATIENT TEMPERATURE (BEAKER) (test 37.0 code = 1818) FIO2 (BEAKER) (test code = 1819) 100.0 POCT-GLUCOSE [id number] 00:08:00 Test Item Value Reference Range Interpretation Comments POC-GLUCOSE METER 130 mg/dL 70-110 H : TESTED A T [facility] [address] (BEAKER) (test code [address], = 1538) [facility] [address]: Mobile Home Installer/Techni jatin ID = [id number] for Juliamelida Donavan taylor [id number] 21:18:00 Test Item Value Reference Range Interpretation Comments FERRITIN (LINUS) (test code = 4634.10 ng/mL 22.00-322.00 H 361) Mobile Home Installer ID - wjej89Sxsykzly ID - JUSTINOperator ID - JUSTINPOCT-GLUCOSE METER 2021-01-30 17:16:00 Test Item Value Reference Range Interpretation Comments POC-GLUCOSE METER 125 mg/dL 70-110 H : Notified RN/MD: TESTED (LINUS) (test code AT [facility] [address] POINT = 1538) [place] [address]: Mobile Home Installer/Techni jatin ID = [id number] for Derick h, Lorita POCT-GLUCOSE [id number] 12:59:00 Test Item Value Reference Range Interpretation Comments POC-GLUCOSE METER 126 mg/dL 70-110 H : Notified RN/MD: TESTED (LINUS) (test code AT [facility] [address] POINT = 1538) [place] [address]: Mobile Home Installer/Techni jatin ID = [id number] for Derick h, Lorita RAD, ABDOMEN/KUB 1 VIEW [id number] 11:31:00Reason for exam:->ngt placement [facility] : 1985 Sex: MFINAL REPORT INDICATION:Nasogastric tube insertion. COMPARISON:Chest x- ray from same day TECHNIQUE:Upright view of the abdomen. FINDINGS:Tip of nasogastric tube is in distal stomach.Coarse interstitial and airspace infiltrates in the included lung bases.No significant gaseous distention of yaritza wel or stomach. IMPRESSION:Satisfactory position of nasogastric tube. Signed: Ladarius Forrest MDReport Verified Date/Time: 01/30/2021 11:31:13 Reading Location: [facility] Radiology Reading Room BLOOD GAS, [id number] 09:23:00 Test Item Value Reference Range Interpretation Comments PH ARTERIAL (BEAKER) (test code = 7.27 7.35-7.45 L 383) PCO2 ARTERIAL (BEAKER) (test code 50 mm Hg 35-45 H = 384) PO2 ARTERIAL (BEAKER) (test code 75 mm Hg 80-90 L = 385) O2 SATURATION ARTERIAL (BEAKER) 93.2 % 96.0-97.0 L (test code = 386) HCO3 ARTERIAL (BEAKER) (test code 23 mmol/L - = 388) BASE EXCESS ARTERIAL (BEAKER) -4.7 mmol/L -2.0-3.0 L (test code = 387) PATIENT TEMPERATURE (BEAKER) 37.0 (test code = 1818) FIO2 (BEAKER) (test code = 1819) 100.0 RAD, CHEST, 1 VIEW, NON [id number] 08:17:00Reason for exam:->s/p intubationH[facility]ORENCE [facility]GER : 1985 Sex: MFINAL REPORT INDICATION:Status post intubation COMPARISON:Chest x-ray 01/29/2021 TECHNIQUE:Frontal view of chest. FINDINGS:Endotracheal tube is 2 cm from melanie.Nasogastric tube is coursing left hemidiaphragm, tip is not included on this exam.Right-sided PICC tip at the atriocaval junction.Mild progression of coarse nodular interstitium and diffuse opacities.Relative sparing of bilateral lung apices stable.No pleural effusion or pneumothorax. IMPRESSION: 1. Satisfactory position of lines and tubes.2. Progression of interstitial and alveolar infiltrates. Signed: Ladarius Forresteport Verified Date/Time: 01/30/2021 08:17:10 Reading Location: [facility] Radiology Reading Room Electronically signedby: LADARIUS FORREST MD on 01/30/2021 08:17 AMBLOOD GAS, [id number] 07:16:00 Test Item Value Reference Range Interpretation Comments PH ARTERIAL (BEAKER) (test code = 7.40 7.35-7.45 383) PCO2 ARTERIAL (BEAKER) (test code 41 mm Hg 35-45 = 384) PO2 ARTERIAL (BEAKER) (test code = 49 mm Hg 80-90 L 385) O2 SATURATION ARTERIAL (BEAKER) 84.4 % 96.0-97.0 L (test code = 386) HCO3 ARTERIAL (BEAKER) (test code 25 mmol/L 21-29 = 388) BASE EXCESS ARTERIAL (BEAKER) 0.0 mmol/L -2.0-3.0 (test code = 387) PATIENT TEMPERATURE (BEAKER) (test 37.0 code = 1818) FIO2 (BEAKER) (test code = 1819) 100.0 CBC W/PLT COUNT & AUTO [id number] 06:42:00 Test Item Value Reference Range Interpretation Comments WHITE BLOOD CELL COUNT (BEAKER) 9.0 K/ L 4.0-10.0 (test code = 775) RED BLOOD CELL COUNT (BEAKER) 4.38 M/ L 4.20-5.80 (test code = 761) HEMOGLOBIN (BEAKER) (test code = 13.0 GM/DL 13.0-16.8 410) HEMATOCRIT (BEAKER) (test code = 38.0 % 36.0-50.0 411) MEAN CORPUSCULAR VOLUME (BEAKER) 86.8 fL 82.0-99.0 (test code = 753) MEAN CORPUSCULAR HEMOGLOBIN 29.7 pg 27.0-33.0 (BEAKER) (test code = 751) MEAN CORPUSCULAR HEMOGLOBIN CONC 34.2 GM/DL 32.0-36.0 (BEAKER) (test code = 752) RED CELL DISTRIBUTION WIDTH 12.3 % 12.0-15.0 (BEAKER) (test code = 412) PLATELET COUNT (BEAKER) (test 210 K/CU MM 150-430 code = 756) MEAN PLATELET VOLUME (BEAKER) 9.8 fL 6.0-11.5 (test code = 754) NUCLEATED RED BLOOD CELLS 0 /100 WBC 0-0 (BEAKER) (test code = 413) (MANUAL DIFFERENTIAL)2021-01-30 06:42:00 Test Item Value Reference Range Interpretation Comments NEUTROPHILS - REL (DIFF) (BEAKER) 61 % (test code = 1359) LYMPHOCYTES - REL (DIFF) (BEAKER) 20 % (test code = 1360) MONOCYTES - REL (DIFF) (BEAKER) 5 % (test code = 1361) BANDS - REL (DIFF) (BEAKER) (test 14 % 0-10 H code = 1348) NEUTROPHILS - ABS (DIFF) (BEAKER) 5.49 K/ L 1.80-8.00 (test code = 1365) LYMPHOCYTES - ABS (DIFF) (BEAKER) 1.80 K/ L 1.48-4.50 (test code = 1366) MONOCYTES - ABS (DIFF) (BEAKER) 0.45 K/ L 0.00-1.30 (test code = 1367) BANDS-ABS (DIFF) (BEAKER) (test 1.3 K/ L 0.0-0.8 H code = 1349) TOTAL COUNTED (BEAKER) (test code = 100 1351) BANDS + SEGMENTED NEUTROPHILS 6.75 (BEAKER) (test code = 1352) WBC MORPHOLOGY (BEAKER) (test code Normal = 487) PLT MORPHOLOGY (BEAKER) (test code Normal = 486) ANISOCYTOSIS (BEAKER) (test code = 1+ few 961) [id number] 05:23:00 Test Item Value Reference Range Interpretation Comments D-DIMER QUANTITATIVE 0.81 MG/L FEU <0.50 H Final Information (BEAKER) (test code = (Auto Output) 671) REGARDING D-DIMER RESULTS: The 98% NPV (Negative Predictive Value) for DVT/PE exclusion is 0.50 mg/LFEU as suggested by the merchandise flow manager and as approved by the FDA.[id number] 05:09:00 Test Item Value Reference Range Interpretation Comments MAGNESIUM (BEAKER) (test code = 2.4 mg/dL 1.5-3.0 627) Mobile Home Installer ID - LITOOperator ID - LITOOperator ID - LITOOperator ID - LITOHEPATIC FUNCTION [id number] 05:09:00 Test Item Value Reference Range Interpretation Comments TOTAL PROTEIN (BEAKER) (test code = 6.0 gm/dL 6.0-8.5 770) ALBUMIN (BEAKER) (test code = 1145) 3.0 g/dL 3.5-5.0 L BILIRUBIN TOTAL (BEAKER) (test code 0.5 mg/dL 0.1-1.2 = 377) BILIRUBIN DIRECT (BEAKER) (test 0.4 mg/dL 0.0-0.4 code = 706) ALKALINE PHOSPHATASE (BEAKER) (test 108 U/L 30-115 code = 346) AST (SGOT) (BEAKER) (test code = 112 U/L 5-40 H 353) ALT (SGPT) (BEAKER) (test code = 103 U/L 5-50 H 347) Mobile Home Installer ID - LITOOperator ID - LITOOperator ID - LITOOperator ID - LITOOperator ID - LITOOperator ID - LITOOperator ID - LITOBASIC METABOLIC [id number] 05:07:00 Test Item Value Reference Range Interpretation Comments SODIUM (BEAKER) 143 meq/L 135-148 (test code = 381) POTASSIUM (BEAKER) 3.9 meq/L 3.6-5.5 (test code = 379) CHLORIDE (BEAKER) 109 meq/L 98-106 H (test code = 382) CO2 (BEAKER) (test 23 meq/L 20-29 code = 355) BLOOD UREA NITROGEN 26 mg/dL 10-26 (BEAKER) (test code = 354) CREATININE (BEAKER) 0.87 mg/dL 0.50-1.20 (test code = 358) GLUCOSE RANDOM 126 mg/dL 70-110 H (BEAKER) (test code = 652) CALCIUM (BEAKER) 9.1 mg/dL 8.5-10.5 (test code = 697) EGFR (BEAKER) (test 101 mL/min/1.73 ESTIM ATED GFR IS code = 1092) sq m NOT ACCURATE CREATININE CLEARANCE IN PREDICTING GLOMERULAR FILTRATION RATE . ESTIMATED GFR I S NOT APPLICABLE FOR DIALYSIS PATIEN TS. Mobile Home Installer ID - LITOOperator ID - LITOOperator ID - LITOOperator ID - LITOOperator ID - LITOOperator ID - LITOOperator ID - LITOOperator ID - LITOOperator ID - [id number] 05:06:00 Test Item Value Reference Range Interpretation Comments PHOSPHORUS (BEAKER) (test code = 2.4 mg/dL 2.5-4.5 L 604) Mobile Home Installer ID - LITOBLOOD GAS, [id number] 04:22:00 Test Item Value Reference Range Interpretation Comments PH ARTERIAL (BEAKER) (test code = 7.40 7.35-7.45 383) PCO2 ARTERIAL (BEAKER) (test code 39 mm Hg 35-45 = 384) PO2 ARTERIAL (BEAKER) (test code 56 mm Hg 80-90 L = 385) O2 SATURATION ARTERIAL (BEAKER) 89.3 % 96.0-97.0 L (test code = 386) HCO3 ARTERIAL (BEAKER) (test code 24 mmol/L 21-29 = 388) BASE EXCESS ARTERIAL (BEAKER) -0.8 mmol/L -2.0-3.0 (test code = 387) PATIENT TEMPERATURE (BEAKER) 37.0 (test code = 1818) FIO2 (BEAKER) (test code = 1819) 100.0 POCT-GLUCOSE [id number] 21:01:00 Test Item Value Reference Range Interpretation Comments POC-GLUCOSE METER 146 mg/dL 70-110 H : TESTED A T [address] (BEAKER) (test code [address], = 1538) [place] [address]: Mobile Home Installer/Techni jatin ID = [id number] for Amarjit r Melvinda POCT-GLUCOSE [id number] 18:06:00 Test Item Value Reference Range Interpretation Comments POC-GLUCOSE METER 124 mg/dL 70-110 H : TESTED A T [address] (BEAKER) (test code [address], = 1538) [place] [id number]: Mobile Home Installer/Techni jatin ID = [id number] for Marika Giraldo 2D Echo W/Doppler(CW/PW/Color)2021-01-29 14:49:11[facility]CW/PW/Color[facility]2021-01-29 14:49:11Ejection [facility]ractionSLEH [facility] [id number] 11:57:00 Test Item Value Reference Range Interpretation Comments POC-GLUCOSE METER 146 mg/dL 70-110 H : TESTED A T [address] (BEAKER) (test code [address], = 1538) [facility] [address]: Mobile Home Installer/Techni jatin ID = [id number] for Marika Giraldo RAD, CHEST, 1 VIEW, NON [id number] 11:29:00Reason for exam:->PICC line insertionShould this be performed at the bedside?->Yes [facility] : 1985 Sex: MFINAL REPORT RAD, CHEST, 1 VIEW, NON DEPT INDICATION: PICC line insertion COMPARISON: Prior day's exam FINDINGS: Portable frontal view of the chest. IMPRESSION: Support Lines: PICC tip overlies the atriocaval junction Lungs and pleura: Bilateral airspace disease is unchanged No pneumothorax.Heart and mediastinum: Stable contours. Stable surgical changes.Additional findings: None. Signed: Yessica Staton Verified Date/Time: 01/29/2021 11:29:42 Reading Location: [facility] Radiology Reading Room SARS-CoV2/RT-PCR (Symptomatic ONLY)2021-01-29 09:28:00 Test Item Value Reference Range Interpretation Comments SARS-COV2/RT-PCR Positive Negative AA The SARS-Co V-2 (test code = target nucleic 17056-1) acids are detected in this specimen. PENNY (test code = The presence of PENNY) SARS-CoV-2/FLU/RSV viral nucleic acids cannot rule out co-infections or disease caused by other viral or bacterial pathogens. As with any molecular test, mutations within the target regions of the Xpert Xpress SARS-CoV-2/Flu/RSV test could affect primer and/or probe binding resulting in failure to detect the presence of virus or the virus being detected less predictably. False negative results may occur if the virus is present at levels below the analytical limit of detection in this specimen. This Xpert Xpress SARS-CoV-2/Flu/RSV test is a rapid, real-time RT-PCR test intended for the qualitative detection of nucleic acid from Xpert Xpress SARS-CoV-2/Flu/RSV in a nasopharyngeal swab specimen collected from individuals suspected of Xpert Xpress SARS-CoV-2/Flu/RSV by their healthcare provider. Results from janes Xpert Xpress SARS-CoV-2/Flu/RSV test should be correlated with the clinical history, epidemiological data, and other data available to the clinician evaluating the patient. Viral nucleic acid may persist in vivo, independent of virus viability. Detection of analyte target(s) does not imply that the corresponding virus(es) are infectious or are the causative agents for clinical symptoms. This test has not been Food and Drug Administration (FDA) cleared or approved and has been authorized by FDA under an Emergency Use Authorization (EUA). This EUA will be effective until the declaration that circumstances exist justifying the authorization of the emergency use of in vitro diagnostic tests for detection and/or diagnosis of COVID-19 is terminated under Section 564(b)(2) of the Act or the EUA is revoked under Section 564(g) of the Act. Fact Sheet for Healthcare Providers:https://www .[employer].com/Document s/Xpert%20Xpress%20SA RS%20CoV-2/Fact%20She ets/302-3902%20SARS-C OV-2%20HEALTHCARE%20P ROVIDERS%20FACT%20SHE ET.pdf Fact Sheet for Healthcare Patients:https://www. [employer]/Documents /Xpert%20Xpress%20SAR S%20Cov-2/Fact%20Shee ts/302-3801%20SARS-CO V-2%20PATIENT%20FACT% 20SHEET.pdf Lab Interpretation Abnormal (test code = 35629-5) [facility]2021-01-29 09:28:00 Test Item Value Reference Range Interpretation Comments SARS-COV2/RT-PCR Positive Negative AA The SARS-Co V-2 (test code = target nucleic 77308-4) acids are detected in this specimen. PENNY (test code = The presence of PENNY) SARS-CoV-2/FLU/RSV viral nucleic acids cannot rule out co-infections or disease caused by other viral or bacterial pathogens. As with any molecular test, mutations within the target regions of the Xpert Xpress SARS-CoV-2/Flu/RSV test could affect primer and/or probe binding resulting in failure to detect the presence of virus or the virus being detected less predictably. False negative results may occur if the virus is present at levels below the analytical limit of detection in this specimen. This Xpert Xpress SARS-CoV-2/Flu/RSV test is a rapid, real-time RT-PCR test intended for the qualitative detection of nucleic acid from Xpert Xpress SARS-CoV-2/Flu/RSV in a nasopharyngeal swab specimen collected from individuals suspected of Xpert Xpress SARS-CoV-2/Flu/RSV by their healthcare provider. Results from janes Xpert Xpress SARS-CoV-2/Flu/RSV test should be correlated with the clinical history, epidemiological data, and other data available to the clinician evaluating the patient. Viral nucleic acid may persist in vivo, independent of virus viability. Detection of analyte target(s) does not imply that the corresponding virus(es) are infectious or are the causative agents for clinical symptoms. This test has not been Food and Drug Administration (FDA) cleared or approved and has been authorized by FDA under an Emergency Use Authorization (EUA). This EUA will be effective until the declaration that circumstances exist justifying the authorization of the emergency use of in vitro diagnostic tests for detection and/or diagnosis of COVID-19 is terminated under Section 564(b)(2) of the Act or the EUA is revoked under Section 564(g) of the Act. Fact Sheet for Healthcare Providers:https://www .[employer]/Document s/Xpert%20Xpress%20SA RS%20CoV-2/Fact%20She ets/302-3902%20SARS-C OV-2%20HEALTHCARE%20P ROVIDERS%20FACT%20SHE ET.pdf Fact Sheet for Healthcare Patients:https://www. [employer]/Documents /Xpert%20Xpress%20SAR S%20Cov-2/Fact%20Shee ts/302-3801%20SARS-CO V-2%20PATIENT%20FACT% 20SHEET.pdf Lab Interpretation Abnormal (test code = 55405-2) [facility])2021-01-29 09:28:00 Test Item Value Reference Range Interpretation Comments SARS-COV2/RT-PCR Positive Negative AA The SARS-Co V-2 target (test code = 0465995) nuclei c acids are detected in thi s specimen. The presence of SARS-CoV-2/FLU/RSV viral nucleic acids cannot rule out co- infections or disease caused by other viral or bacterial pathogens. As with any molecular test, mutations within the target regions of the Xpert Xpress SARS-CoV-2/Flu/RSV test could affect primer and/or probe binding resulting in failure to detect the presence of virus or the virus being detected less predictably. False negative results may occur if the virus is present at levels below the analytical limit of detection in thisspecimen.This Xpert Xpress SARS-CoV-2/Flu/RSV test is a rapid, real-time RT-PCR test intended for the qualitative detection of nucleic acid from Xpert Xpress SARS-CoV-2/Flu/RSV in a nasopharyngeal swabspecimen collected from individuals suspected of Xpert Xpress SARS-CoV-2/Flu/RSV by their healthcareprovider. Results from janes Xpert Xpress SARS-CoV-2/Flu/RSV test should be correlated with the clinical history, epidemiological data, and other data available to the clinician evaluating the patient. Viral nucleic acid may persist in vivo, independent of virus viability. Detection of analyte target(s)does not imply that the corresponding virus(es) are infectious or are the causative agents for clinical symptoms.This test has not been Food and Drug Administration (FDA) cleared or approved and has been authorized by FDA under an Emergency Use Authorization (EUA). This EUA will be effective until thedeclaration that circumstances exist justifying the authorization of the emergency use of in vitro diagnostic tests for detection and/or diagnosis of COVID-19 is terminated under Section 564(b)(2) of the Act or the EUA is revoked under Section 564(g) of the Act.Fact Sheet for Healthcare Providers:https ://www.[employer]/Documents/Xpert%20Xpress%20SARS%20CoV-2/Fact%20Sheets/302-390 2%76HGGA-TWU-3%20HEALTHCARE%20PROVIDERS%20FACT%20SHEET.pdfFact Sheet for Healthcare Patients:https://www.[employer]/Docum ents/Xpert%20Xpress%20SARS%20Cov-2/Fact%20Sheets/302-3801%67LYEW-OZC-9%20PATIENT %20FACT%20SHEET.[id number] 09:28:00 Test Item Value Reference Range Interpretation Comments FERRITIN (BEAKER) (test code = 3774.80 ng/mL 22.00-322.00 H 361) Mobile Home Installer ID - [id number] ID - [id number] Influenza A&B Screen 2021-01-29 09:24:00 Test Item Value Reference Range Interpretation Comments Rapid Influenza A Antigen Negative Negative, Inconclusive (test code = 69845-1) Rapid influenza B Antigen Negative Negative, Inconclusive (test code = 79899-5) Lab Interpretation (test code Normal = 64268-0) [facility] Influenza A&B [id number] 09:24:00 Test Item Value Reference Range Interpretation Comments Rapid Influenza A Antigen Negative Negative, Inconclusive (test code = 14736-2) Rapid influenza B Antigen Negative Negative, Inconclusive (test code = 68354-2) Lab Interpretation (test code Normal = 58914-8) [facility] [id number] 09:24:00 Test Item Value Reference Range Interpretation Comments RAPID INFLUENZA A AG (BEAKER) Negative Negative, Inconclusive (test code = 1622) RAPID INFLUENZA B AG (BEAKER) Negative Negative, Inconclusive (test code = 1623) RAD, CHEST, 1 VIEW, NON [id number] 09:13:00Reason for exam:->hypoxic covidH[facility] : 1985 Sex: MFINAL REPORT INDICATION: hypoxic covid COMPARISON: None TECHNIQUE: Single frontal view of the chest. FINDINGS: Lungs and pleura: Bilateral airspace disease, some of which appears masslike. Superimposed, there are air bronchograms concerning for consolidative pneumonia No effusion.Heart and me diastinum: Normal heart size. Unremarkable mediastinal contours.Osseous structures: No acute abnormality.Other: None. Signed: Yessica Staton MDReport Verified Date/Time: 01/29/2021 09:13:59 Reading Location: [facility] Radiology Reading Room [id number] 08:45:00 Test Item Value Reference Range Interpretation Comments PROCALCITONIN (BEAKER) (test code 1.62 ng/mL <0.05 H = 3036) SEPSIS RISK (ng/mL)Low: 0.05-0.50Intermediate: 0.51-2.00High: >=2.01Troponin [id number] 08:42:00 Test Item Value Reference Range Interpretation Comments Troponin I (test code = <0.03 0.00-0.15 69268-2) PENNY (test code = PENNY) Troponin I (TnI) levels must be interpreted in the context of the presenting symptoms and the clinical findings. Elevated TnI levels indicate myocardial damage, but are not specific for ischemic heart disease. Elevated TnI levels are seen in patients with other cardiac conditions (including myocarditis and congestive heart failure), and slight TnI elevations occur in patients with other conditions, including sepsis, renal failure, acidosis, acute neurological disease, and persistent tachyarrhythmia.[facility] ID - [id number] Lab Interpretation (test Normal code = 57632-8) [facility] [id number] 08:42:00 Test Item Value Reference Range Interpretation Comments Troponin I (test code = <0.03 0.00-0.15 03027-4) PENNY (test code = PENNY) Troponin I (TnI) levels must be interpreted in the context of the presenting symptoms and the clinical findings. Elevated TnI levels indicate myocardial damage, but are not specific for ischemic heart disease. Elevated TnI levels are seen in patients with other cardiac conditions (including myocarditis and congestive heart failure), and slight TnI elevations occur in patients with other conditions, including sepsis, renal failure, acidosis, acute neurological disease, and persistent tachyarrhythmia.[facility] - [id number] Lab Interpretation (test Normal code = 63509-7) [facility] [id number] 08:42:00 Test Item Value Reference Range Interpretation Comments TROPONIN I (BEAKER) (test code = 397) < ng/mL 0.00-0.15 Troponin I (TnI) levels must be interpreted in the context of the presenting symptoms and the clinical findings. Elevated TnI levels indicate myocardial damage, but are not specific for ischemic heart disease. Elevated TnI levels are seen in patients with other cardiac conditions (including myocarditis and congestive heart failure), and slight TnI elevations occur in patients with other conditions, including sepsis, renal failure, acidosis, acute neurological disease, and persistent tachyarrhythmia.Mobile Home Installer ID - [id number]-Toicxucx Protein 2021-01-29 08:38:00 Test Item Value Reference Range Interpretation Comments CRP (test code = 676) 28.27 mg/dL 0.00-0.50 H PENNY (test code = PENNY) Mobile Home Installer ID - [id number] Lab Interpretation (test Abnormal code = 19653-4) [facility] [id number] 08:38:00 Test Item Value Reference Range Interpretation Comments CRP (test code = 676) 28.27 mg/dL 0.00-0.50 H PENNY (test code = PENNY) Mobile Home Installer ID - [id number] Lab Interpretation (test Abnormal code = 04054-1) [facility] [id number] 08:38:00 Test Item Value Reference Range Interpretation Comments C-REACTIVE PROTEIN (BEAKER) (test 28.27 mg/dL 0.00-0.50 H code = 676) Mobile Home Installer ID - [id number] metabolic [id number] 08:35:00 Test Item Value Reference Range Interpretation Comments Protein, Total (test 6.2 See_Comment [Autom ated code = 2885-2) message] The system which generated this result transmit olga reference range : 6.0 - 8.5 gm/dL . The reference range was not u sed to interpret th is result as normal/abnormal . Albumin (test code = 3.1 g/dL 3.5-5.0 L 07597-3) Alkaline Phosphatase 107 U/L 30-115 (test code = 6768-6) Total Bilirubin (test 1.0 mg/dL 0.1-1.2 code = 1975-2) Sodium (test code = 139 meq/L 037-581 6958-2) Potassium (test code 4.1 meq/L 3.6-5.5 = 2823-3) Chloride (test code = 108 meq/L 98-106 H 5-0) CO2 (test code = 21 meq/L 20-29 8-9) BUN (test code = 19 mg/dL 10-26 3094-0) Creatinine (test code 0.92 mg/dL 0.50-1.20 = 2160-0) Glucose (test code = 124 mg/dL 70-110 H 2345-7) Calcium (test code = 8.9 mg/dL 8.5-10.5 15412-0) AST (test code = 100 U/L 5-40 H 1920-8) ALT (test code = 95 U/L 5-50 H 1742-6) EGFR (test code = 95 mL/min/1.73 [place] [address]-3) NOT ACCURATE CREATININE CLEARANCE IN PREDICTING GLOMERULAR FILTRATION RATE . ESTIMATED GFR I S NOT APPLICABLE FOR DIALYSIS PATIEN TS. PENNY (test code = PENNY) Mobile Home Installer ID - [id number] r ID - [id number] r ID - [id number] r ID - [id number] r ID - [id number] r ID - [id number] r ID - [id number] r ID - [id number] r ID - [id number] r ID - [id number] r ID - QFXOS526Cuygfei r ID - [id number] r ID - [id number] r ID - [id number] r ID - [id number] r ID - [id number] Lab Interpretation Abnormal (test code = 53889-2) [facility] Center[facility] [id number] 08:35:00 Test Item Value Reference Range Interpretation Comments Protein, Total (test 6.2 See_Comment [Autom ated code = 2885-2) message] The system which generated this result transmit olga reference range : 6.0 - 8.5 gm/dL . The reference range was not u sed to interpret th is result as normal/abnormal . Albumin (test code = 3.1 g/dL 3.5-5.0 L 04726-2) Alkaline Phosphatase 107 U/L 30-115 (test code = 6768-6) Total Bilirubin (test 1.0 mg/dL 0.1-1.2 code = 1975-2) Sodium (test code = 139 meq/L 631-329 2971-2) Potassium (test code 4.1 meq/L 3.6-5.5 = 2823-3) Chloride (test code = 108 meq/L 98-106 H 2074-0) CO2 (test code = 21 meq/L 20-29 2027-9) BUN (test code = 19 mg/dL - 3094-0) Creatinine (test code 0.92 mg/dL 0.50-1.20 = 2160-0) Glucose (test code = 124 mg/dL 70-110 H 2345-7) Calcium (test code = 8.9 mg/dL 8.5-10.5 23597-4) AST (test code = 100 U/L 5-40 H 1920-8) ALT (test code = 95 U/L 5-50 H 1742-6) EGFR (test code = 95 mL/min/1.[place] [address]-9) NOT ACCURATE CREATININE CLEARANCE IN PREDICTING GLOMERULAR FILTRATION RATE . ESTIMATED GFR I S NOT APPLICABLE FOR DIALYSIS PATIEN TS. PENNY (test code = PENNY) Mobile Home Installer ID - [id number] r ID - [id number] r ID - [id number] r ID - [id number] r ID - [id number] r ID - [id number] r ID - [id number] r ID - [id number] r ID - [id number] r ID - [id number] r ID - [id number] r ID - [id number] r ID - [id number] r ID - [id number] r ID - [id number] r ID - [id number] Lab Interpretation Abnormal (test code = 58840-8) [facility] CenterMAGN[facility]IUM2021-07-28 08:35:00 Test Item Value Reference Range Interpretation Comments MAGNESIUM (BEAKER) (test code = 2.2 mg/dL 1.5-3.0 627) Mobile Home Installer ID - [id number] ID - [id number] ID - [id number] ID - [id number] METABOLIC [id number] 08:35:00 Test Item Value Reference Range Interpretation Comments TOTAL PROTEIN 6.2 gm/dL 6.0-8.5 (BEAKER) (test code = 770) ALBUMIN (BEAKER) 3.1 g/dL 3.5-5.0 L (test code = 1145) ALKALINE PHOSPHATASE 107 U/L 30-115 (BEAKER) (test code = 346) BILIRUBIN TOTAL 1.0 mg/dL 0.1-1.2 (BEAKER) (test code = 377) SODIUM (BEAKER) (test 139 meq/L 135-148 code = 381) POTASSIUM (BEAKER) 4.1 meq/L 3.6-5.5 (test code = 379) CHLORIDE (BEAKER) 108 meq/L 98-106 H (test code = 382) CO2 (BEAKER) (test 21 meq/L 20-29 code = 355) BLOOD UREA NITROGEN 19 mg/dL 10-26 (BEAKER) (test code = 354) CREATININE (BEAKER) 0.92 mg/dL 0.50-1.20 (test code = 358) GLUCOSE RANDOM 124 mg/dL 70-110 H (BEAKER) (test code = 652) CALCIUM (BEAKER) 8.9 mg/dL 8.5-10.5 (test code = 697) AST (SGOT) (BEAKER) 100 U/L 5-40 H (test code = 353) ALT (SGPT) (BEAKER) 95 U/L 5-50 H (test code = 347) EGFR (BEAKER) (test 95 mL/min/1.73 ESTIMA OLGA GFR IS code = 1092) sq m NOT ACCURATE CREATININE CLEARANCE IN PREDICTING GLOMERULAR FILTRATION RATE . ESTIMATED GFR I S NOT APPLICABLE FOR DIALYSIS PATIEN TS. Mobile Home Installer ID - [id number] ID - [id number] ID - [id number] ID - [id number] ID - [id number] ID - [id number] ID - ESUBF138Xhvleeol ID - ZIMGN906Aclplqpi ID - [id number] ID - YTPUQ550Zitqjhtq ID - [id number] ID - RCWLZ073Bapcviwg ID - KNIAK103Tcysqxhb ID - [id number] ID - [id number] ID - [id number] 08:32:00 Test Item Value Reference Range Interpretation Comments PHOSPHORUS (BEAKER) (test code = 2.8 mg/dL 2.5-4.5 604) Mobile Home Installer ID - [id number] time/[id number] 08:31:00 Test Item Value Reference Interpretation Comments Range Protime (test code = 10.8 See_Comment Final 5902-2) Information (Auto Output) [Automated message] The system which generated this result transmitted reference range : 9.3 - 12.0 seconds. The reference range was not used to interpret this result as normal/abnormal . INR (test code = 0.97 See_Comment Final 6301-6) Information (Auto Output) [Automated message] The system which generated this result transmitted reference range : <=5.90. The reference range was not used to interpret this result as normal/abnormal . PENNY (test code = RECOMMENDED PENNY) COUMADIN/WARFARIN INR THERAPY RANGESSTANDARD DOSE: 2.0 - 3.0 Includes: PROPHYLAXIS for venous thrombosis, systemic embolization; TREATMENT for venous thrombosis and/or pulmonary embolus.HIGH RISK: Target INR is 2.5-3.5 for patients with mechanical heart valves. Lab Interpretation Normal (test code = 87950-8) [facility] CenterProthrombin time/[id number] 08:31:00 Test Item Value Reference Interpretation Comments Range Protime (test code = 10.8 See_Comment Final 5902-2) Information (Auto Output) [Automated message] The system which generated this result transmitted reference range : 9.3 - 12.0 seconds. The reference range was not used to interpret this result as normal/abnormal . INR (test code = 0.97 See_Comment Final 6301-6) Information (Auto Output) [Automated message] The system which generated this result transmitted reference range : <=5.90. The reference range was not used to interpret this result as normal/abnormal . PENNY (test code = RECOMMENDED PENNY) COUMADIN/WARFARIN INR THERAPY RANGESSTANDARD DOSE: 2.0 - 3.0 Includes: PROPHYLAXIS for venous thrombosis, systemic embolization; TREATMENT for venous thrombosis and/or pulmonary embolus.HIGH RISK: Target INR is 2.5-3.5 for patients with mechanical heart valves. Lab Interpretation Normal (test code = 31697-3) [id number] 08:31:00 Test Item Value Reference Range Interpretation Comments PROTIME (BEAKER) 10.8 seconds 9.3-12.0 Final Infor mation (test code = 759) (Auto Outp ut) INR (BEAKER) (test 0.97 See_Comment Final Inf ormation code = 370) (Auto Output) [Automated mess age] The system [employer] generated this result transmitted ref erence range: <=5.90. The reference range was not used to int erpret this result as normal/abnormal . RECOMMENDED COUMADIN/WARFARIN INR THERAPY RANGESSTANDARD DOSE: 2.0 - 3.0 Includes: PROPHYLAXIS for venous thrombosis, systemic embolization; TREATMENT for venous thrombosis and/or pulmonary embolus.HIGH RISK: Target INR is 2.5-3.5 for patients with mechanical heart valves.[id number] 08:31:00 Test Item Value Reference Range Interpretation Comments D-DIMER QUANTITATIVE 0.68 MG/L FEU <0.50 H Final Information (BEAKER) (test code = (Auto Output) 671) REGARDING D-DIMER RESULTS: The 98% NPV (Negative Predictive Value) for DVT/PE exclusion is 0.50 mg/LFEU as suggested by the merchandise flow manager and as approved by the FDA.CBC W/PLT COUNT & AUTO [id number] 08:16:00 Test Item Value Reference Range Interpretation Comments WHITE BLOOD CELL COUNT (BEAKER) 12.5 K/ L 4.0-10.0 H (test code = 775) RED BLOOD CELL COUNT (BEAKER) 4.62 M/ L 4.20-5.80 (test code = 761) HEMOGLOBIN (BEAKER) (test code = 13.8 GM/DL 13.0-16.8 410) HEMATOCRIT (BEAKER) (test code = 39.2 % 36.0-50.0 411) MEAN CORPUSCULAR VOLUME (BEAKER) 84.8 fL 82.0-99.0 (test code = 753) MEAN CORPUSCULAR HEMOGLOBIN 29.9 pg 27.0-33.0 (BEAKER) (test code = 751) MEAN CORPUSCULAR HEMOGLOBIN CONC 35.2 GM/DL 32.0-36.0 (BEAKER) (test code = 752) RED CELL DISTRIBUTION WIDTH 12.3 % 12.0-15.0 (BEAKER) (test code = 412) PLATELET COUNT (BEAKER) (test 200 K/CU MM 150-430 code = 756) MEAN PLATELET VOLUME (BEAKER) 10.0 fL 6.0-11.5 (test code = 754) NUCLEATED RED BLOOD CELLS 0 /100 WBC 0-0 (BEAKER) (test code = 413) NEUTROPHILS RELATIVE PERCENT 94 % (BEAKER) (test code = 429) LYMPHOCYTES RELATIVE PERCENT 3 % (BEAKER) (test code = 430) MONOCYTES RELATIVE PERCENT 1 % (BEAKER) (test code = 431) EOSINOPHILS RELATIVE PERCENT 0 % (BEAKER) (test code = 432) BASOPHILS RELATIVE PERCENT 0 % (BEAKER) (test code = 437) NEUTROPHILS ABSOLUTE COUNT 11.69 K/ L 1.80-8.00 H (BEAKER) (test code = 670) LYMPHOCYTES ABSOLUTE COUNT 0.42 K/ L 1.48-4.50 L (BEAKER) (test code = 414) MONOCYTES ABSOLUTE COUNT (BEAKER) 0.16 K/ L 0.00-1.30 (test code = 415) EOSINOPHILS ABSOLUTE COUNT 0.00 K/ L 0.00-0.50 (BEAKER) (test code = 416) BASOPHILS ABSOLUTE COUNT (BEAKER) 0.01 K/ L 0.00-0.20 (test code = 417) IMMATURE GRANULOCYTES-RELATIVE 2 % 0-0 H PERCENT (BEAKER) (test code = 2801) BLOOD GAS, [id number] 08:14:00 Test Item Value Reference Range Interpretation Comments PH ARTERIAL (BEAKER) (test code = 7.42 7.35-7.45 383) PCO2 ARTERIAL (BEAKER) (test code 36 mm Hg 35-45 = 384) PO2 ARTERIAL (BEAKER) (test code 83 mm Hg 80-90 = 385) O2 SATURATION ARTERIAL (BEAKER) 96.4 % 96.0-97.0 (test code = 386) HCO3 ARTERIAL (BEAKER) (test code 23 mmol/L 21-29 = 388) BASE EXCESS ARTERIAL (BEAKER) -1.4 mmol/L -2.0-3.0 (test code = 387) PATIENT TEMPERATURE (BEAKER) 37.0 (test code = 1818) FIO2 (BEAKER) (test code = 1819) 100.0
[2022-06-08] MEDS ORDERED: FENTANYL CITR 100 MCG/2 ML ONE (18:03)
[2022-06-08 18:05] LABS: Absolute Lymphocytes (CBC) 1.8 K/uL (0.7-4.9); Hematocrit 44.4 % (39.6-49.0); Lymphocytes % 23.3 % (15.3-44.8); MCV 86.3 fL (80-100); MPV 8.4 fL (7.6-11.3); RBC Red Blood Cell Count 5.15 M/uL (4.33-5.43)
[2022-06-08 18:18] LABS: Potassium 4.1 mmol/L (3.5-5.1)
--- NOTE | 2022-06-08 18:30 | RAD REPORT ---
EXAM DESCRIPTION: CT - Abdomen Pelvis Wo Contrast - 06/08/2022 6:05 pm CLINICAL HISTORY: Abdominal pain status post fall from skateboard COMPARISON: None TECHNIQUE: Computed axial tomography of the abdomen and pelvis was obtained. IV and oral contrast we re not requested. All CT scans are performed using dose optimization technique as appropriate and may include automated exposure control or mA/KV adjustment according to patient size. FINDINGS: The evaluation of solid organs, vessels and bowel is limited secondary to the lack of con trast administration. The liver, spleen, pancreas, adrenals, kidneys and bladder do not demonstrate a traumatic injury. No ascites. Small left inguinal hernia contains. Small to moderate umbilical hernia No evidence of diverticulitis. Left lateral subluxation of a coccyx segment IMPRESSION: Left lateral subluxation of a coccyx segment .
--- NOTE | 2022-06-08 19:20 | EDPHYS ---
Physician Documentation [facility] Name: Erich Colbert Age: 37 yrs Sex: Male : 1985 Arrival Date: 06/08/2022 Time: 17:11 Bed 9 Private MD: ED Physician Gurvinder Llanes HPI: 06/08 17:45 This 37 yrs old Male presents to ER via Unassigned with complaints of Fall Injury, cp tailbone pain. 17:45 Patient reports fall while riding skateboard down railing. Fell backward onto coccyx cp area striking metal bar. Denies hitting head. Patient c/o pain to coccyx area. Historical: - Allergies: 18:34 No Known Allergies; ko1 - Home Meds: 18:34 None [Active]; ko1 - Immunization history:: Adult Immunizations unknown. - Social history:: Smoking status: Patient denies any tobacco usage or history of. ROS: 17:50 Constitutional: Negative for body aches, chills, fever, poor PO intake. cp 17:50 Eyes: Negative for injury, pain, redness, and discharge. cp 17:50 Neck: Negative for pain with movement, pain at rest, stiffness. 17:50 Cardiovascular: Negative for chest pain, palpitations. 17:50 Respiratory: Negative for cough, shortness of breath, wheezing. 17:50 Abdomen/GI: Negative for abdominal pain, nausea, vomiting, and diarrhea. 17:50 Back: Positive for pain at rest, pain with movement, of the sacrum. 17:50 Neuro: Negative for altered mental status, headache, numbness, tingling, weakness. 17:50 All other systems are negative. Exam: 17:55 Constitutional: The patient appears in no acute distress, alert, awake, non-toxic, well cp developed, well nourished, uncomfortable. 17:55 Head/Face: Normocephalic, atraumatic. cp 17:55 Neck: C-spine: vertebral tenderness, is not appreciated, crepitus, is not appreciated, ROM/movement: is normal, is supple, without pain, no range of motions limitations. 17:55 Chest/axilla: Inspection: normal, Palpation: is normal, no crepitus, no tenderness. 17:55 Cardiovascular: Rate: normal, Rhythm: regular. 17:55 Respiratory: the patient does not display signs of respiratory distress, Respirations: normal, no use of accessory muscles, no retractions, labored breathing, is not present, Breath sounds: are clear throughout, no decreased breath sounds, no stridor, no wheezing. 17:55 Abdomen/GI: Inspection: abdomen appears normal, Palpation: abdomen is soft and non-tender, in all quadrants. 17:55 Back: pain, that is severe, of the sacrum, ROM is painful, with all movement. 17:55 Neuro: Orientation: to person, place \T\ time. Mentation: is normal, Motor: moves all fours, strength is normal, Sensation: is normal. Vital Signs: 18:00 BP 135 / 84; Pulse 62; Resp 18; Temp 97(O); Pulse Ox 99% on R/A; ko1 18:43 BP 126 / 74; ko1 18:54 Pain 4/10; ko1 20:27 BP 115 / 66; Pulse 76; Resp 16; Temp 98.9; Pulse Ox 99% on R/A; jb5 MDM: 17:34 Patient medically screened. cp 18:00 Differential diagnosis: closed head injury, contusion, fracture, multiple trauma. cp 19:18 Data reviewed: vital signs, nurses notes, radiologic studies, CT scan. cp 19:18 Counseling: I had a detailed discussion with the patient and/or guardian regarding: the cp historical points, exam findings, and any diagnostic results supporting the discharge/admit diagnosis, radiology results, the need for outpatient follow up, a family practitioner, to return to the emergency department if symptoms worsen or persist or if there are any questions or concerns that arise at home. Response to treatment: the patient's symptoms have markedly improved after treatment, VSS. Pain markedly improved. No neuro deficits on exam. Will discharge to home for continued monitoring. 06/08 17:38 Order name: Basic Metabolic Panel; Complete Time: 19:01 cp 06/08 19: Interpretation: Normal except: CL 110; GFR 86. cp 06/08 17:38 Order name: CBC with Diff; Complete Time: 19:01 cp 06/08 17:38 Order name: Type And Screen; Complete Time: 19:40 cp 06/08 19:40 Interpretation: Reviewed. 06/08 17:38 Order name: CT Abd/Pelvis - Without Contrast; Complete Time: 19:01 cp 06/08 19:02 Interpretation: Report reviewed. cp 06/08 17:38 Order name: Labs collected and sent; Complete Time: 17:57 cp Administered Medications: 18:25 Drug: fentaNYL (PF) 25 mcg Route: IVP; Site: left antecubital; ko1 18:54 Follow up: Pain 4/10 Adult; Response: No adverse reaction; Pain is decreased ko1 20:01 Drug: Hydrocodone-Acetaminophen (7.5 mg-325 mg) 1 tabs Route: PO; bb 20:01 Drug: Ibuprofen 800 mg Route: PO; bb Disposition: 06/09 18:43 Co-signature as Attending Physician, Gurvinder Llanes MD I agree with the assessment and kdr plan of care. Disposition Summary: 06/08/22 19:19 Discharge Ordered Location: Home cp Problem: new cp Symptoms: have improved cp Condition: Stable cp Diagnosis - Fracture of coccyx - from fall off skateboard cp Followup: cp - With: Private Physician - When: 2 - 3 days - Reason: Recheck today's complaints Discharge Instructions: - Discharge Summary Sheet cp - Tailbone Injury cp Forms: - Medication Reconciliation Form cp - Thank You Letter cp - Antibiotic Education cp - Prescription Opioid Use cp Prescriptions: - Ibuprofen 800 mg Oral Tablet - take 1 tablet by ORAL route every 8 hours As needed take with food; 30 tablet; cp Refills: 0, Product Selection Permitted - Tylenol-Codeine #3 300 mg-30 mg Oral - take 2 tablet by ORAL route every 6-8 hours; 14 tablet; Refills: 0, Product cp Selection Permitted Signatures: Dispatcher [employer] Gurvinder Rojas MD MD [facility] [address] Marina Delgado, RN RN bb Inderjit Croft PA PA cp Alexandra Rdz, RN RN ko1
--- NOTE | 2022-06-08 19:20 | ER ---
Nurse's Notes [facility] Name: Erich Colbert Age: 37 yrs Sex: Male : 1985 Arrival Date: 06/08/2022 Time: 17:11 Bed 9 Private MD: Diagnosis: Fracture of coccyx-from fall off skateboard Historical: - Allergies: 06/08 18:34 No Known Allergies; ko1 - Home Meds: 18:34 None [Active]; ko1 - Immunization history:: Adult Immunizations unknown. - Social history:: Smoking status: Patient denies any tobacco usage or history of. Screenin:34 Abuse screen: Denies threats or abuse. Denies injuries from another. Nutritional ko1 screening: No deficits noted. Tuberculosis screening: No symptoms or risk factors identified. Fall Risk None identified. Assessment: 17:45 General: Appears distressed, uncomfortable, Behavior is calm, cooperative, appropriate ko1 for age. Pain: Complains of pain in coccyx. Neuro: No deficits noted. Cardiovascular: No deficits noted. Respiratory: No deficits noted. GI: No deficits noted. : No deficits noted. EENT: No deficits noted. Derm: No deficits noted. Musculoskeletal: Reports pain in coccyx Pain is 10 out of 10 on a pain scale. Injury Description: blunt trauma to coccyx. Vital Signs: 18:00 BP 135 / 84; Pulse 62; Resp 18; Temp 97(O); Pulse Ox 99% on R/A; ko1 18:43 BP 126 / 74; ko1 18:54 Pain 4/10; ko1 20:27 BP 115 / 66; Pulse 76; Resp 16; Temp 98.9; Pulse Ox 99% on R/A; jb5 ED Course: 17:11 Patient arrived in ED. am2 17:21 Inderjit Croft PA is PHCP. cp 17:21 Gurvinder Llanes MD is Attending Physician. cp 17:33 Alexandra Rdz, LINDSAY is Primary Nurse. ko1 17:45 Inserted saline lock: 20 gauge in left antecubital area, using aseptic technique. Blood ko1 collected. 17:57 Basic Metabolic Panel Sent. ko1 17:57 CBC with Diff Sent. ko1 17:57 Type And Screen Sent. ko1 18:07 CT Abd/Pelvis - Without Contrast In Process Unspecified. EDMS 18:34 No provider procedures requiring assistance completed. ko1 18:34 Patient has correct armband on for positive identification. Bed in low position. Call ko1 light in reach. Side rails up X 1. 20:27 IV discontinued, bleeding controlled, Pressure dressing applied. jb5 Administered Medications: 18:25 Drug: fentaNYL (PF) 25 mcg Route: IVP; Site: left antecubital; ko1 18:54 Follow up: Pain 10/12 Adult; Response: No adverse reaction; Pain is decreased ko1 20:01 Drug: Hydrocodone-Acetaminophen (7.5 mg-325 mg) 1 tabs Route: PO; bb 20:01 Drug: Ibuprofen 800 mg Route: PO; bb Outcome: 19:19 Discharge ordered by . timothy 20:33 Patient left the ED. kd3 Signatures: Dispatcher [employer] EDMS Marina Delgado RN RN bb Inderjit Croft PA PA cp Odalys Mane jb5 Lizy Dave Kyli, RN RN kd3 Alexandra Rdz RN RN ko1
[2022-06-08] MEDS ORDERED: IBUPROFEN 400 MG TAB ONE (19:59)
[2022-06-08] MEDS ORDERED: HYDROCODONE/APAP 7.5/325 MG TAB ONE (19:59)
[2022-06-08 23:40] VITALS: O2SAT 99
[2022-06-08 23:52] VITALS: BP 115/66; TEMP 98.9
== END 2022-06-08 20:33 | disposition home or self-care (01) ==
LOC: ER 17:10
DX: S32.2XXA Fracture of coccyx, initial encounter for closed fracture (principal); V00.131A Fall from skateboard, initial encounter
CPT/HCPCS: 85025; 80048; 36415; 86900; 86850; 86901; 74176; 96374; 99284; J3010